=== PATIENT | male | born 1940 | race Caucasian/White ===

== ENCOUNTER 2017-03-17 09:01 | Inpatient (IN) | payer OTHER, MEDICARE ==
[~2017-03-17] VITALS: Ht 177.8 cm; Wt 117.0 kg
[2017-03-17] MEDS ORDERED: DEXTROSE 50% 50 ML SYRINGE IV PRN (10:30)
[2017-03-17] MEDS ORDERED: GLUCAGON FOR INJ 1 MG VIAL (J1610) SC PRN (10:30)
[2017-03-17] MEDS ORDERED: GLUCOSE 4 GM CHEW TABLET PO PRN (10:30)
[2017-03-17] MEDS ORDERED: ACETAMINOPHEN 650 MG SUPP PR PRN (10:30)
[2017-03-17 12:30] VITALS: BP 186/72
[2017-03-17] MEDS ORDERED: NOVO1INJ4 SC (13:27)
[2017-03-17] MEDS ORDERED: PRAV80TA2 PEG (13:27)
[2017-03-17] MEDS ORDERED: FURO40TA2 PEG (13:27)
[2017-03-17] MEDS ORDERED: ASPI81CH PEG (13:27)
[2017-03-17] MEDS ORDERED: LOVE1INJ SC (13:27)
[2017-03-17] MEDS ORDERED: ALLO100T PEG (13:27)
[2017-03-17] MEDS ORDERED: INSUH10VL SC (13:27)
[2017-03-17] MEDS ORDERED: MIRA33504 PEG (13:27)
[2017-03-17] MEDS ORDERED: PROT1TAB2 PEG (13:27)
[2017-03-17] MEDS ORDERED: VERA300C PEG (13:27)
[2017-03-17] MEDS ORDERED: INSULANT SC (13:27)
[2017-03-17] MEDS ORDERED: LOSA100T36 PEG (13:27)
[2017-03-17] MEDS ORDERED: METO100T5 PEG (13:27)
--- NOTE | 2017-03-17 13:54 | CR.PDOC ---
[facility] Consultation Consultation CONSULTATION REPORT FOR: Dr Suero REASON FOR CONSULTATION: Medical Management DATE OF VISIT: 03/17/17 ATTENDING: Dr. Christopher Hood PCP [facility] HPI: 76year oldM who was found on the floor by his on 03/06/17. He was subsequently found to have acute CVA at [facility]. The Pt is transferred to the care of Dr Suero, ARU 03/17/17. No acute medical complaints today. Pt not able to provide history, history is taken from chart and from his dtr Kyara. 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 Peg tube 03/14/17. HTN Gout DM Dyslipidemia H/O AVB/Pacemaker CAD/CT CALE. Pt refuses CPAP. OA B/L Knees. Uses W/C at home. COPD M obesity. BMI 36.2 TTE 03/07/17. [facility]. EF60%, Mild LVH, Mod DD, Mild , Mild TR, Trace MR. CTA neck [facility] 03/07 10-15% carotid stenosis PSHX: peg tube 03/14/17 Pacemaker B/L knee arthroscopy. SOCHX: Resides in: [facility] Marital Status: Employment: retired Tobacco use: non smoker FAMHX: Children: 1 dtr Alive, well 3 brothers. HTN, CAD, CVA, CT, alcoholism. 1 brother /1 sister DM complications. ROS: Pt is unable to provide. PE: GEN: 76yoM, appears stated age. Well-nourished, well developed. No acute distress. Alert, unable to verbalize answers to questions but does shake head yes and no to some questions. Sometimes with difficulty following commands. HEENT: Normocephalic, atraumatic. Pupils are equal, round, and reactive to light. Sclera are nonicteric. Conjunctiva without injection. Nose midline. Moist mucous membranes. Dentition fair. Pharynx pink and moist. Neck supple, trachea midline. No lymphadenopathy or thyromegaly appreciated. CHEST: Regular rate and rhythm, +S1, +S2. Systolic murmur noted. LUNGS: Clear to auscultation bilaterally. No wheezes, rales, or rhonchi. Breathing appears symmetric and easy. No accessory muscle use. ABD: Round, soft, non-tender, non-distended. +Bowel sounds throughout. No rebound or guarding. No costovertebral angle tenderness. peg tube intact. EXT: Pulses 2+ bilaterally dorsalis pedis and radial. No lower extremity edema appreciated. SKIN: [place], dry, warm. Capillary refill <2sec. No rashes. NEURO: Alert. Aphasic. UA pending. Admission labs pending. A&P: 76year oldM who was found on the floor by his on 03/06/17. He was subsequently found to have acute CVA at [facility]. The Pt is transferred to the care of SHABANA Farias 03/17/17. No acute medical complaints today. 1. S/P CVA. left tempo parietal, with oral apraxia and global aphasia Mgmt as per Dr Suero. PT/OT/ST as per Dr Suero. Pain control as per Dr Suero Bowel care as per Dr Suero. DVT prophylaxis. Lovenox. Peg tube feedings. Pt NPO. Pt seen by Neurology at [facility]. ASA 325mg daily. Out pt f/u. 2. HTN/HHD. Continue with Cozaar 100mg daily, Lasix 40mgpo daily, Metoprolol 100mg BID, Verapamil 300mg daily. Monitor BP trend. 3. Gout. Allopurinol. 4. IDDM. Tube feedings. NPO. SSI. 5. Dyslipidemia. Pravachol 80 mg daily. 6. H/O CHB/Pacemaker. 7. CAD/H/O CT. Continue Metoprolol/ASA. 8. CALE. Pt refuses CPAP. Monitor. 9. M Obesity. Complicates care. BMI 36.2 10. OA B/L knees. Chronic unsteady gait related to his knees per Dtr, uses Wheelchair at home. 11. VHD. Mild /Mild TR/Trace MR. 12. H/O Rhabdomyolysis during admission. CK pending. Thank you for your consultation. We will continue to follow along with you. Vital Signs/I&O Vital Signs Date Time Temp Pulse Resp B/P (MAP) Pulse Ox O2 Delivery O2 Flow Rate FiO2 03/17/17 12:30 97.4 60 18 186/72 (110) 96 Room Air Laboratory Data Labs 24H Laboratory Tests 2 03/17/17 13:06: Bedside Glucose (Misc Panel) 248H Allergies Coded Allergies: Penicillin V (Verified Allergy, Unknown, 03/17/17) Penicillins (Verified Allergy, Unknown, 03/17/17) Home Medications Scheduled (Aspirin) 81 Mg Chw, 324 MG PEG DAILY, (Reported) STARTED AT [facility] Allopurinol (Allopurinol) 100 Mg Tab, 100 MG PEG DAILY, (Reported) Enoxaparin Sodium (Lovenox) 40 Mg/0.4 Ml Inj, 40 MG SC DAILY, (Reported) STARTED AT [facility] Furosemide (Furosemide) 40 Mg Tab, 40 MG PEG DAILY, (Reported) Insulin Aspart (Novolog) 100 U/Ml Inj, 0 SC ACHS, (Reported) PER SLIDING SCALE, STARTED AT [facility] Insulin Glargine (Lantus) 1 Units/0.01 Ml Susp, 45 UNITS SC QHS, (Reported) Insulin Human Isophan/Regular (Novolin 70/30 (70-30) 100 Unit/ml) 1 Inj Inj, 45 UNITS SC DAILY, (Reported) Losartan Potassium (Losartan Potassium) 100 Mg Tab, 100 MG PEG DAILY, (Reported) Metoprolol Tartrate (Metoprolol Tartrate) 100 Mg Tab, 100 MG PEG BID, (Reported) Pantoprazole Sodium Sesquihydr (Protonix) 40 Mg Tab, 40 MG PEG DAILY, (Reported) STARTED AT [facility] Polyethylene Glycol (Miralax) 1 Pow Pow, 17 GM PEG DAILY, (Reported) STARTED AT [facility] Pravastatin Sodium (Pravastatin Sodium) 80 Mg Tab, 80 MG PEG DAILY, (Reported) Verapamil Hcl (Verapamil HCl ER) 300 Mg Cap, 300 MG PEG DAILY, (Reported) Chanda Wiggins Mar 17, 2017 13:54
[2017-03-17] MEDS ORDERED: BISACODYL 10 MG SUPP PR ONE (14:00)
[2017-03-17] MEDS: METOPROLOL TARTRATE 100 MG TAB PEG SCH ×2 (14:01→21:33)
[2017-03-17] MEDS: HumaLOG INSULIN (NovoLOG) PER UNIT SC SCH ×3 (14:01→21:00)
[2017-03-17] MEDS: ALLOPURINOL 100 MG TAB PEG SCH (14:02)
[2017-03-17] MEDS: FUROSEMIDE 40 MG TAB PEG SCH (14:02)
--- NOTE | 2017-03-17 14:10 | PMRNOTEPD ---
PMR Note 76-year-old white male status post large left temporoparietal CVA with global aphasia, oral apraxia, dysphasia and dysarthria and mild right hemiparesis which are further complicated by multiple aspects of atherosclerotic cardiovascular disease including atrial fibrillation, hypertension, peripheral vascular disease, hyperlipidemia, aortic mitral and tricuspid valve disease, pulmonary hypertension, left ventricular hypertrophy: Diabetes mellitus type 2, acute kidney injury, rhabdomyolysis, morbid obesity with obstructive sleep apnea and not using CPAP or BiPAP. 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 Due to his arrhythmia history does have a pacemaker. Patient is here for a trial of neuro rehabilitation on an acute intensive basis do 3 hours or more of therapy per day including physical, occupational and speech therapies. We will proceed with a one-week trial of neuro rehabilitation. I overall feel patient has a very good prognosis for the enable participated benefit from this and this should help make him better able to be discharged to live with his daughter in [place] who will now be caring for the patient and his . H&P dictation number is [id number]. JOSE JACOBS MD Mar 17, 2017 14:10
[2017-03-17] MEDS: VERAPAMIL 40 MG TAB PEG SCH ×2 (17:31→21:32)
[2017-03-17 20:00] VITALS: BP 155/75
[2017-03-17] MEDS: PRAVASTATIN 20 MG TAB PEG SCH (21:33)
--- NOTE | 2017-03-18 00:40 | ECGEPIP ---
Stationary ECG Study [facility] Test Date: 2017-03-17 Pat Name: JOSE BARRAZA Department: Room: [place] [address] Gender: M French Drawer: MEME : 1940 Requested By: JOSE Correia Order Number: [id number] Reading MD: Christopher Hood Measurements Intervals [place] Rate: 60 P: [place]: 0 QRS: -64 QRSD: 138 T: 126 QT: 478 QTc: 478 Interpretive Statements ELECTRONIC VENTRICULAR PACEMAKER Underlying rhythm appears to be aflutter Comparison tracing not on file Electronically Signed On 03-18-2017 0:40:06 EDT by Christopher Hood
[2017-03-18 06:00] VITALS: BP 167/79
[2017-03-18 06:30] VITALS: BP 138/82
[2017-03-18 06:54] LABS: BASO % 0.3 % (0.0-1.0); EOS # 0.2 K/mm3 (0.0-0.50); EOS % 1.7 % (0.0-3.0); LARGE UNSTAINED CELL # 0.1 K/mm3 (0.0-0.4); LARGE UNSTAINED CELL % 1.1 % (0.0-4.0); LYMPH # 0.8 K/mm3 (1.5-4.5); LYMPH % 6.6 % (24.0-44.0); MEAN CORPUSCULAR HEMOGLOBIN 30.1 pg (27.0-33.0); MEAN CORPUSCULAR HGB CONC 33.8 g/dl (32.0-36.5); MONO # 0.6 K/mm3 (0.0-0.8); NEUTROPHILS # 8.8 K/mm3 (1.8-7.7); NEUTROPHILS % 84.2 % (36.0-66.0); PLATELET COUNT, AUTOMATED 225 k/mm3 (150-450); RED CELL DISTRIBUTION WIDTH 13.5 % (11.5-14.5); WHITE BLOOD COUNT 10.5 K/mm3 (4.0-10.0)
[2017-03-18] MEDS: HumaLOG INSULIN (NovoLOG) PER UNIT SC SCH ×4 (06:57→21:00)
[2017-03-18 07:13] LABS: ALBUMIN 2.9 GM/DL (3.2-5.2); ALBUMIN/GLOBULIN RATIO 0.71 (1.00-1.93); ALKALINE PHOSPHATASE 92 U/L (45-117); ALT/SGPT 26 U/L (12-78); ANION GAP 8 MEQ/L (8-16); AST/SGOT 28 U/L (15-37); BILIRUBIN,TOTAL 0.9 MG/DL (0.2-1.0); BLOOD UREA NITROGEN 26 MG/DL (7-18); CALCIUM LEVEL 8.8 MG/DL (8.8-10.2); CARBON DIOXIDE LEVEL 30 MEQ/L (21-32); CHLORIDE LEVEL 98 MEQ/L (98-107); CREATININE FOR GFR 1.03 MG/DL (0.70-1.30); GLOMERULAR FILTRATION RATE > 60.0 (>42); GLUCOSE, FASTING 199 MG/DL (83-110); POTASSIUM SERUM 4.4 MEQ/L (3.5-5.1); SODIUM LEVEL 136 MEQ/L (136-145)
[2017-03-18] MEDS: METOPROLOL TARTRATE 100 MG TAB PEG SCH ×2 (08:24→20:05)
[2017-03-18] MEDS: FUROSEMIDE 40 MG TAB PEG SCH (08:25)
[2017-03-18] MEDS: LOSARTAN 50 MG TAB PEG SCH (08:25)
[2017-03-18] MEDS: ASPIRIN 325 MG TAB PEG SCH (08:26)
[2017-03-18] MEDS: ALLOPURINOL 100 MG TAB PEG SCH (08:26)
[2017-03-18] MEDS: VERAPAMIL 40 MG TAB PEG SCH ×3 (08:26→20:04)
[2017-03-18] MEDS: ENOXAPARIN 40 MG/0.4 ML SYRINGE (J1650) SC SCH (08:26)
[2017-03-18] MEDS ORDERED: ASPIRIN 81 MG CHEW TABLET PEG SCH (09:00)
--- NOTE | 2017-03-18 11:20 | IPNPDOC ---
Long Term Acute Care Registered Nurse Progress Note DATE OF SERVICE: 03/18/17 DATE OF ADMISSION: Mar 17, 2017 at 12:30 INPATIENT REHABILITATION ADMISSION DAY: #2 SUBJECTIVE: Patient is a 76-year-old white male with large left temporoparietal CVA with mild right hemiparesis but dense global aphasia, oral apraxia, dysarthria and dysphasia. Patient with rhabdomyolyses and skin lesion of hip. Patient with after spray cardiovascular disease including valvular disease of aortic, mitral and tricuspid valves with pulmonary hypertension, arrhythmia history including atrial fibrillation with implanted pacemaker and hyperlipidemia. Patient also with morbid obesity and secondary obstructive sleep apnea though he refuses to use CPAP. Patient status post PEG tube for feeding and medications and remains nothing by mouth. Patient with a little discomfort in the abdomen especially around the PEG site. Patient shakes his head with regards to other pains or problems as being no. ALLERGIES: See Below MEDICATIONS: Reviewed, see below. OBJECTIVE: VITAL SIGNS: Please see below. PHYSICAL EXAMINATION: GENERAL: Pleasant elderly white male who is below average height and morbidly obese sitting up in manual wheelchair in his room this morning in no acute distress. HEENT: Mild right facial droop otherwise atraumatic/normocephalic. CARDIOVASCULAR: Regular rate and rhythm with normal S1 and S2 and grade 4/6 holosystolic murmur. 2/4 bilateral radial pulses. LUNGS: All baird clear to auscultation. ABDOMEN: Obese, mildly distended with diffuse tympani and mild tenderness around PEG site. PEG site without any inflammation or drainage. NEUROLOGICAL: Patient is alert and mute. He does seem to be better than random on his shaking head yes and no. He does participate fairly well with therapy and examination. Still unable to test appropriately the sensorimotor due to poor communications. LABORATORY DATA: Reviewed. Please see below. MICROBIOLOGY: Please see below. IMAGING: No new imaging. DVT prophylaxis ordered?: Lovenox and LEOBARDO white. ASSESSMENT AND PLAN: 1. Rehabilitation of left temporoparietal CVA: Completing assessment with physical therapy, occupational therapy and speech-language pathology. Patient showing motivation and participation with therapist so far. We will discusses at further length at team rounds today. 2. Acute kidney injury: Creatinine normal at 1.03 with BUN elevated at 26. Dietary consult recommending increasing QID flushes with water from 100 to 150 mL. electrolytes are normal. 3. Hypertension: Blood pressures fairly stable and we will continue to monitor. 4. Hypo-albuminemia: Currently 2.9 and CPK now in the normal range as nutrition and seems to be improving. Dietary consultation appreciated. TIME SPENT: Chart Review, examination and documentation require greater than 35 minutes. Allergies Coded Allergies: Penicillin V (Verified Allergy, Unknown, 03/17/17) Penicillins (Verified Allergy, Unknown, 03/17/17) Vital Signs Vital Signs Date Time Temp Pulse Resp B/P (MAP) Pulse Ox O2 Delivery O2 Flow Rate FiO2 03/18/17 09:00 Room Air 03/18/17 08:24 60 138/82 03/18/17 06:00 98.5 18 95 Laboratory Data CBC/BMP Laboratory Tests 03/18/17 06:30 Red Blood Count 4.71, Mean Corpuscular Volume 89.0, Mean Corpuscular Hemoglobin 30.1, Mean Corpuscular Hemoglobin Concent 33.8, Red Cell Distribution Width 13.5 , Neutrophils (%) (Auto) 84.2 H, Lymphocytes (%) (Auto) 6.6 L, Monocytes (%) ( Auto) 6.0 H, Eosinophils (%) (Auto) 1.7, Basophils (%) (Auto) 0.3, Neutrophils # (Auto) 8.8 H, Lymphocytes # (Auto) 0.8 L, Monocytes # (Auto) 0.6, Eosinophils # (Auto) 0.2, Basophils # (Auto) 0.0, Calcium Level 8.8, Aspartate Amino Transf (AST/SGOT) 28, Alanine Aminotransferase (ALT/SGPT) 26, Total Creatine Kinase 23 L, Alkaline Phosphatase 92, Total Bilirubin 0.9, Total Protein 7.0, Albumin 2.9 L Labs 24H Laboratory Tests 2 03/17/17 13:06: Bedside Glucose (Misc Panel) 248H 03/17/17 15:36: Urine Appearance CLEAR, Urine Color YELLOW, Urine pH 7.0, Urine Specific [place] 1.012, Urine Protein NEGATIVE, Urine Glucose (UA) 3+H, Urine Ketones NEGATIVE, Urine Urobilinogen 2.0H, Urine Bilirubin NEGATIVE, Urine Leukocyte Esterase NEGATIVE, Urine Blood NEGATIVE, Urine Nitrite NEGATIVE, Urine WBC (Auto ) 1, Urine RBC (Auto) 3, Urine Hyaline Casts (Auto) 0, Urine Bacteria (Auto) 1+H , Urine Squamous Epithelial Cells 0, Urine Sperm (Auto) 03/17/17 16:34: Bedside Glucose (Misc Panel) 255H 03/17/17 21:04: Bedside Glucose (Misc Panel) 119H 03/18/17 06:08: Bedside Glucose (Misc Panel) 182H 03/18/17 06:30: White Blood Count 10.5H, Red Blood Count 4.71, Hemoglobin 14.2, Hematocrit 42.0 , Mean Corpuscular Volume 89.0, Mean Corpuscular Hemoglobin 30.1, Mean Corpuscular Hemoglobin Concent 33.8, Red Cell Distribution Width 13.5, Platelet Count 225, Neutrophils (%) (Auto) 84.2H, Lymphocytes (%) (Auto) 6.6L, Monocytes (%) (Auto) 6.0H, Eosinophils (%) (Auto) 1.7, Basophils (%) (Auto) 0.3, Neutrophils # (Auto) 8.8H, Lymphocytes # (Auto) 0.8L, Monocytes # (Auto) 0.6, Eosinophils # (Auto) 0.2, Basophils # (Auto) 0.0, Large Unclassified Cells % 1.1 , Large Unclassified Cells # 0.1, Anion Gap 8, Glomerular Filtration Rate > 60.0 , Blood Urea Nitrogen 26H, Creatinine 1.03, Sodium Level 136, Potassium Level 4.4, Chloride Level 98, Carbon Dioxide Level 30, Calcium Level 8.8, Aspartate Amino Transf (AST/SGOT) 28, Alanine Aminotransferase (ALT/SGPT) 26, Total Creatine Kinase 23L, Alkaline Phosphatase 92, Total Bilirubin 0.9, Total Protein 7.0, Albumin 2.9L, Albumin/Globulin Ratio 0.71L Current Medications Current Medications Current Medications Acetaminophen (Tylenol Suppository) 650 mg Q6HP PRN AK PAIN OR FEVER; Start at 10:30; Stop 04/16/17 at 10:29 Allopurinol (Zyloprim) 100 mg DAILY PEG Last administered on 03/18/17t 08:26; Start 03/17/17 at 09:00; Stop 04/16/17 at 08:59 Aspirin (Aspirin Chewable) 81 mg DAILY PEG ; Start 03/18/17 at 09:00; Stop 03/18 at 09:00; Status DC Aspirin (Aspirin) 325 mg DAILY PEG Last administered on 03/18/17 08:26; Start 03/18/17 at 09:00; Stop 04/17/17 at 08:59 Dextrose (Dextrose 50%) 25 ml ASDIRECTED PRN IV SEE LABEL COMMENTS; Start 03/17 at 10:30; Stop 04/16/17 at 10:29 Enoxaparin Sodium (Lovenox) 40 mg DAILY SC Last administered on 03/18/17 08:26 ; Start 03/18/17 at 09:00; Stop 03/23/17 at 08:59 Furosemide (Lasix) 40 mg DAILY PEG Last administered on 03/18/17 08:25; Start 03/17/17 at 09:00; Stop 04/16/17 at 08:59 Glucagon (Glucagon) 1 mg ASDIRECTED PRN SC SEE LABEL COMMENTS; Start 03/17/17 at 10:30; Stop 04/16/17 at 10:29 Glucose (Glucose) 16 GM ASDIRECTED PRN PO SEE LABEL COMMENTS; Start 03/17/17 at 10:30; Stop 04/16/17 at 10:29 Home Med (Med Rec Complete!) ASDIRECTED XX ; Start 03/17/17 at 13:30; Stop at 13:34; Status DC Insulin Human Lispro (HumaLOG INSULIN) See Protocol Table AC SC Last administered on 03/18/17 06:57; Start 03/17/17 at 12:00; Stop 04/16/17 at 11:59 Insulin Human Lispro (HumaLOG INSULIN) See Protocol Table QHS SC ; Start at 21:00; Stop 04/16/17 at 20:59 Losartan Potassium (Cozaar) 100 mg DAILY PEG Last administered on 03/18/17 08: 25; Start 03/18/17 at 09:00; Stop 04/17/17 at 08:59 Metoprolol Tartrate (Lopressor) 100 mg BID PEG Last administered on 03/18/17 08:24; Start 03/17/17 at 09:00; Stop 04/16/17 at 08:59 Pravastatin Sodium (Pravachol) 80 mg QHS PEG Last administered on 03/17/17 21: 33; Start 03/17/17 at 21:00; Stop 04/16/17 at 20:59 Verapamil HCl (Calan) 120 mg TID PEG Last administered on 03/18/17t 08:26; Start 03/17/17 at 16:00; Stop 04/16/17 at 15:59 JOSE JACOBS MD Mar 18, 2017 11:20
--- NOTE | 2017-03-18 12:02 | IPNPDOC ---
Date Seen The patient was seen on 03/18/17. Progress Note HPI: 76year oldM who was found on the floor by his on 03/06/17. He was subsequently found to have acute CVA at [facility]. The Pt is transferred to the care of SKYLER FariasU 03/17/17. Pt has been reporting abdominal pain today. Loose BM as per nursing, but did receive Dulcolax last evening. Pt is a poor historian, shakes head to some questions but possibly unreliably. History is taken from chart and nursing today. 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 Peg tube 03/14/17. HTN Gout DM Dyslipidemia H/O AVB/Pacemaker CAD/AK CALE. Pt refuses CPAP. OA B/L Knees. Uses W/C at home. COPD M obesity. BMI 36.2 TTE 03/07/17. [facility]. EF60%, Mild LVH, Mod DD, Mild , Mild TR, Trace MR. CTA neck [facility] 03/07 10-15% carotid stenosis CTA Brain. [facility]. unremarkable. EEG. [facility]. No seizure activity noted. PSHX: peg tube 03/14/17 Pacemaker B/L knee arthroscopy. PE: GEN: 76yoM, appears stated age. Well-nourished, well developed. No acute distress. Alert, unable to verbalize answers to questions but does shake head yes and no to some questions. Sometimes with difficulty following commands. HEENT: Normocephalic, atraumatic. Pupils are equal, round, and reactive to light. Sclera are nonicteric. Conjunctiva without injection. Nose midline. Moist mucous membranes. Dentition fair. Pharynx pink and moist. Neck supple, trachea midline. No lymphadenopathy or thyromegaly appreciated. CHEST: Regular rate and rhythm, +S1, +S2. Systolic murmur noted. LUNGS: Clear to auscultation bilaterally. No wheezes, rales, or rhonchi. Breathing appears symmetric and easy. No accessory muscle use. ABD: Round, soft, Mild TTP suprapubic area, non-distended. +Bowel sounds throughout. No rebound or guarding. No costovertebral angle tenderness. peg tube intact, there is no erythema/drainage noted. EXT: Pulses 2+ bilaterally dorsalis pedis and radial. No lower extremity edema appreciated. SKIN: [place], dry, warm. Capillary refill <2sec. No rashes. NEURO: Alert. Aphasic. EKG 03/17/17 ELECTRONIC VENTRICULAR PACEMAKER Underlying rhythm appears to be aflutter Comparison tracing not on file A&P: 76year oldM who was found on the floor by his on 03/06/17. He was subsequently found to have acute CVA at [facility]. The Pt is transferred to the care of Dr Suero, SKYLERU 03/17/17. No acute medical complaints today. 1. S/P CVA. left tempo parietal, with oral apraxia and global aphasia Mgmt as per Dr Suero. PT/OT/ST as per Dr Suero. Pain control as per Dr Suero Bowel care as per Dr Suero. DVT prophylaxis. Lovenox. Peg tube feedings. Pt NPO. Nutrition Clt. Pt seen by Neurology at [facility]. ASA 325mg daily. Out pt f/u. 2. HTN/HHD. Continue with Cozaar 100mg daily, Lasix 40mgpo daily, Metoprolol 100mg BID, Verapamil 300mg daily. BP trend improved today. 3. Gout. Allopurinol. 4. IDDM. Tube feedings. NPO. SSI. 5. Dyslipidemia. Pravachol 80 mg daily. 6. H/O CHB/Pacemaker. EKG indicates underlying Afib/Flutter. Similar on previous tracing at [facility] as well. Will request Cardiology opinion regarding anticoagulation. Spoke with Dr Dawson, he will see the pt. 7. CAD/H/O [place]. Continue Metoprolol/ASA. 8. CALE. Pt refuses CPAP. Monitor. 9. M Obesity. Complicates care. BMI 36.2 10. OA B/L knees. Chronic unsteady gait related to his knees per Dtr, uses Wheelchair at home. 11. VHD. Mild /Mild TR/Trace MR. 12. H/O Rhabdomyolysis during admission. CK WNL. 13. Abdominal pain. WBC 10.5 this AM. Afebrile. Request UA/UC. GI panel. Bladder scan. Request CT A/P to further asses. Check LA. Daily CBC/CMP. Discussed with Dr Bernal. VS, I&O, 24H, Fishbone Vital Signs/I&O Vital Signs Date Time Temp Pulse Resp B/P (MAP) Pulse Ox O2 Delivery O2 Flow Rate FiO2 03/18/17 09:00 Room Air 03/18/17 08:24 60 138/82 03/18/17 06:00 98.5 18 95 I&O- Last 24 Hours up to 6 AM 03/18/17 05:59 Intake Total 1500 ml Output Total 0 ml Balance 1500 ml Laboratory Data 24H LABS Laboratory Tests 2 03/17/17 13:06: Bedside Glucose (Misc Panel) 248H 03/17/17 15:36: Urine Appearance CLEAR, Urine Color YELLOW, Urine pH 7.0, Urine Specific [place] 1.012, Urine Protein NEGATIVE, Urine Glucose (UA) 3+H, Urine Ketones NEGATIVE, Urine Urobilinogen 2.0H, Urine Bilirubin NEGATIVE, Urine Leukocyte Esterase NEGATIVE, Urine Blood NEGATIVE, Urine Nitrite NEGATIVE, Urine WBC (Auto ) 1, Urine RBC (Auto) 3, Urine Hyaline Casts (Auto) 0, Urine Bacteria (Auto) 1+H , Urine Squamous Epithelial Cells 0, Urine Sperm (Auto) 03/17/17 16:34: Bedside Glucose (Misc Panel) 255H 03/17/17 21:04: Bedside Glucose (Misc Panel) 119H 03/18/17 06:08: Bedside Glucose (Misc Panel) 182H 03/18/17 06:30: White Blood Count 10.5H, Red Blood Count 4.71, Hemoglobin 14.2, Hematocrit 42.0 , Mean Corpuscular Volume 89.0, Mean Corpuscular Hemoglobin 30.1, Mean Corpuscular Hemoglobin Concent 33.8, Red Cell Distribution Width 13.5, Platelet Count 225, Neutrophils (%) (Auto) 84.2H, Lymphocytes (%) (Auto) 6.6L, Monocytes (%) (Auto) 6.0H, Eosinophils (%) (Auto) 1.7, Basophils (%) (Auto) 0.3, Neutrophils # (Auto) 8.8H, Lymphocytes # (Auto) 0.8L, Monocytes # (Auto) 0.6, Eosinophils # (Auto) 0.2, Basophils # (Auto) 0.0, Large Unclassified Cells % 1.1 , Large Unclassified Cells # 0.1, Anion Gap 8, Glomerular Filtration Rate > 60.0 , Blood Urea Nitrogen 26H, Creatinine 1.03, Sodium Level 136, Potassium Level 4.4, Chloride Level 98, Carbon Dioxide Level 30, Calcium Level 8.8, Aspartate Amino Transf (AST/SGOT) 28, Alanine Aminotransferase (ALT/SGPT) 26, Total Creatine Kinase 23L, Alkaline Phosphatase 92, Total Bilirubin 0.9, Total Protein 7.0, Albumin 2.9L, Albumin/Globulin Ratio 0.71L 03/18/17 11:36: Bedside Glucose (Misc Panel) 210H CBC/BMP Laboratory Tests 03/18/17 06:30 Red Blood Count 4.71, Mean Corpuscular Volume 89.0, Mean Corpuscular Hemoglobin 30.1, Mean Corpuscular Hemoglobin Concent 33.8, Red Cell Distribution Width 13.5 , Neutrophils (%) (Auto) 84.2 H, Lymphocytes (%) (Auto) 6.6 L, Monocytes (%) ( Auto) 6.0 H, Eosinophils (%) (Auto) 1.7, Basophils (%) (Auto) 0.3, Neutrophils # (Auto) 8.8 H, Lymphocytes # (Auto) 0.8 L, Monocytes # (Auto) 0.6, Eosinophils # (Auto) 0.2, Basophils # (Auto) 0.0, Calcium Level 8.8, Aspartate Amino Transf (AST/SGOT) 28, Alanine Aminotransferase (ALT/SGPT) 26, Total Creatine Kinase 23 L, Alkaline Phosphatase 92, Total Bilirubin 0.9, Total Protein 7.0, Albumin 2.9 L Chanda Wiggins Mar 18, 2017 12:02
[2017-03-18] MEDS ORDERED: ISOVUE-370 76% 100ML VIAL (Q9967) As Ordered ONE (12:49)
--- NOTE | 2017-03-18 13:34 | PMRHPE ---
DATE OF ADMISSION: 03/17/2017 CHIEF COMPLAINT: Rehabilitation of large left temporal parietal ischemic cerebrovascular accident (CVA) with global aphasia, oral apraxia, dysarthria, dysphasia, mild right hemiparesis. HISTORY OF PRESENT ILLNESS: Patient is a 76-year-old white male who has been caring for his elderly who has dementia and on approximately in the evening, patient sustained an ischemic CVA and was unable to get up. He was down on the kitchen floor. His , due to OBS did not reactive to his descent and patient spent the night on the floor into Tuesday. His at that time became aware of him being down and summoned help. He was taken to [facility] and evaluated and found to have rhabdomyolysis due to being down on the kitchen floor, to be in acute respiratory distress with pulse oximetry of 88 and respiratory rate of 36 and atelectasis in left lower lobe, and cardiac stress with some elevation of troponin into indeterminate range, as well as being found to have an old left parietal CVA and not showing the temporal portion. Patient was further assessed and repeat scan showed the temporal parietal extent of the event. He was found to have oral apraxia and was made n.p.o. and had nasogastric tube and IV access for medications. Subsequent testing did show the elevation of CPK and especially the MB band. Patient, however, with normal CBC and electrolytes, however, acute kidney injury was also noted. Patient has been on medical service with initial intensive care unit (ICU) and then acute floor and started on trial with physical, occupational, speech therapy. He has had placement of a percutaneous endoscopic gastrostomy tube on 03/15 and is now receiving his medications through there. The patient has felt at this time able to participate and benefit from a trial of neuro rehabilitation. His daughter is here from [place] and is acting as his health proxy as the next of kin as his is unable to appreciate and make the decisions for the patient and his communications do not allow that. She does note that patient is FULL CODE and may be intubated and may have ventilation but only for up to 48 hours. PAST MEDICAL HISTORY: Atherosclerotic cardiovascular disease with prior CVA. Prior myocardial infarction. Peripheral vascular disease. Hypertension. Arrhythmias including atrial fibrillation and patient does have a pacemaker. Hyperlipidemia. Aortic and mitral valve and tricuspid valve problems, and on echocardiogram done during his recent hospitalization was found to have pulmonary hypertension as well. DIAGNOSIS: 1. Acute Kidney Injury. 2. Gout. 3. Degenerative joint disease (DJD). 4. Morbid obesity. 5. Obstructive sleep apnea secondary to morbid obesity and patient refused to do CPAP/BiPAP treatment. 6. Hypoalbuminemia secondary to the CVA and nutritional compromise caused by it. PAST SURGICAL HISTORY: Status post percutaneous endoscopic gastrostomy tube placement. FAMILY HISTORY: Includes gastrointestinal (GI) malignancy and atherosclerotic cardiovascular disease. SOCIAL HISTORY: Not obtainable from the patient or his other than he is retired. ALLERGIES: PENICILLIN including PEN-V. No other allergies known. MEDICATIONS FROM [facility]: - insulin sliding scale - Lovenox 40 mg subcutaneous daily - 81 mg aspirin per percutaneous endoscopic gastrostomy tube - propylene glycol 17 grams daily by percutaneous endoscopic gastrostomy tube - sustained release verapamil 300 mg daily - Losartan 50 mg tablets, two tablets via percutaneous endoscopic gastrostomy tube - Pravachol 20 mg tablets, 80 mg daily at bedtime - allopurinol 100 mg daily for gout - Lasix 40 mg daily - metoprolol tartrate 50 mg twice daily I am going to stop the MiraLax so it does not plug the percutaneous endoscopic gastrostomy tube and patient has been having formed bowel movements already along with some incontinence of bowel and bladder reported. REVIEW OF SYSTEMS: Not obtainable from the patient due to the aphasia. PHYSICAL EXAMINATION: General: Patient is morbidly obese, elderly white male who looks approximately stated age of 76, he is slightly below average height. Vital signs are not currently available. HEENT: Patient with right facial droop and unable to extend tongue out, however tongue is basically midline in the mouth were it lays and shows some mild thrush fairly early in development. No other oral lesions. Nasal passages are patent. Extraocular motions are intact. Pupils are equal, round and reactive to light and accommodation. Hearing appears to be fair to good. Neck is supple, nontender. Lungs are clear in all baird. Coronary: Shows regular rate and rhythm with normal S1, S2 and a holosystolic grade 4/6 murmur with no rubs or gallops. Patient with 2/4 bilateral radial pulses. Abdomen is obese with gaseous distention and tympany in almost all regions. No palpable masses and only just a little bit of localized tenderness around the percutaneous endoscopic gastrostomy tube which is showing no inflammation or significant drainage in the left upper quadrant. Extremities with functional range of motion and greater than 3/5 motor. However , patient who has difficulty understanding commands is not able to apply full strength and resistance so is not possible to gauge beyond the antigravital nature of all his muscle group but does appear to be slightly weaker on the right than the left. Neurologically, patient is alert, he does seem to be participating and trying to follow directions but has difficulty and does have clear anomia and understanding speech though he tends to guess fairly well as to what you are asking him to do and tends to do better with gestures than words. However, his true level of orientation is unclear though he does appear to appreciate who he is and what is going on in general. Patient not producing any speech at this time, has been reported to have some automatic responses by his daughter but only short things like her name and no. Patient does appear to consistently understand about his obstructive sleep apnea and able to consistently report by shaking his head no to being on CPAP. Patient was not able to tell me about light touch vibration, however, deep tendon reflexes show 2 minus 4 knee jerks, 2 plus 4 biceps, brachial radialis and 2 out of 4 triceps with downgoing toes in plantar stimulation, negative mentalis signs bilaterally. LABORATORY DATA: Patient with normal electrolytes on yesterday lab. BUN elevated at 34, creatinine now down to 1.23 in normal range with normal glomerular filtration rate. Fasting blood sugar was 323 and recent blood sugars have tended to run between 195 and 323. Albumin is reduced at 2.9 with secondary mild reduction in calcium at 8.1. Hemoglobin and hematocrit are in the normal range. RDW is mildly elevated at 14.2 with normal platelets of 210,000 and normal MCV of 89.1. ASSESSMENT/PLAN: DIAGNOSES: 1. Rehabilitation of left temporal parietal cerebrovascular accident (CVA) with old left parietal CVA and oral apraxia, global aphasia, mild right hemiparesis, dysarthria, dysphasia. Will go ahead and start patient in evaluation and trial of acute intensive neuro rehabilitation including physical, occupational and speech therapy. Speech therapy will assess communication, oral control as well as swallowing and overall cognition. Physical therapy will work on mobility, strength, balance and endurance with occupational therapy working on appropriate transfer and activities of daily living skills and try to make patient more functionally independent to facilitate his anticipated discharge to home with his daughter who will be looking after both him and his , her mother. The initial trial will be for 7 days and will adjust target angle depending on how patient functions. It does appear patient will be able to tolerate the 3 hours of therapy per day and has made some gains in ambulation, transfers and mobility. 2. Atherosclerotic cardiovascular disease. Atrial fibrillation and hypertension appear to have been stabilized. We will continue to watch these. I will go ahead and get a baseline EKG. Medicine service has been consulted and informed about the patient's admission and will be seeing him for that. Patient, of note , does have some signs of vascular disease in the appearance of both lower extremities with some edema and stasis skin changes noted. At this time, it appears patient is out of atrial fibrillation but we will continue to observe and will continue with Lovenox to prevent deep venous thrombosis (DVT) as well as clots from the atrial fibrillation. Patient has been on 40 mg per day, he may require a higher dose due to his weight but this will also depend on his overall ability to get up and move around which is being determined. 3. Diabetes mellitus. This has not been under the best of control and further adjustment in medication including his renal function improves, use of insulin resistance, treating medications. For now, will go ahead with sliding scale and patient is on tube feeds for consistent carbohydrate type diet with Glucerna and will go to more of a traditional consistent carbohydrate diet at the point he is able to advance into regular types of food from his dysphasia. 4. Gout. Will continue the allopurinol. 5. Hypertension. Patient to continue Lasix, Lopressor and verapamil and Losartan for this along with the pravastatin for cholesterol management. 6. Obstructive sleep apnea. At this time, patient refusing treatment and I believe he is aware and understands it, and probably will not comply and is quite capable of taking a mask we would put on him off. Post admission physician evaluation: We did not receive the last few days of notes before the patient arrived, however, he is performing and appeared medially to be better off than was initially seen. In doing the pre-admission screen, I think he has a fairly good opportunity to participate and benefit from acute intensive neuro rehabilitation with physical, occupational and speech therapy and I believe he is quite capable of doing the 3 hours per day and we plan to discharge to his daughter's home. Length of stay is yet to be determined but will start with a 1 week trial of neuro rehabilitation and with patient having a fair to good prognosis. TIME SPENT ON CHART REVIEW, HISTORY AND PHYSICAL AND DOCUMENTATION: Greater than 70 minutes. MTDD
--- NOTE | 2017-03-18 14:29 | REP ---
REASON: Abdominal pain. PEG tube placement. PRIORS: None. CONTRAST UTILIZED FOR THE EXAM: 100 mL Isovue-370. There is a small right pleural effusion seen in the lung bases along with respiratory motion artifact and suspected fibrotic changes. There is four-chamber cardiac enlargement. There is cholelithiasis. There are no enhancing hepatic lesions. The spleen, pancreas, and right adrenal gland are unremarkable. In the left adrenal gland, there is a round 1.8 cm sized nodule which shows contrast enhancement. No noncontrast enhanced images were obtained. There is a tiny simple cortical cyst in the right kidney. There is a tiny simple cortical cyst in the inferior pole of the left kidney. The abdominal aorta and para-aortic regions are within normal limits. Note is made of a PEG tube in place. There is no free fluid or free air seen in the abdomen or pelvis. The intra-abdominal and intrapelvic bowel loops and their mesenteries are within normal limits. There is colonic redundancy, and there is colonic diverticulosis. Bone window technique throughout the exam shows bilateral hip and sacroiliac joint degenerative changes with spinal degenerative changes and bony demineralization. IMPRESSION: 1. There is cholelithiasis. 2. Simple renal cysts. 3. Enhancing left adrenal gland nodule. Noncontrast enhanced evaluation of this is recommended to ensure the entity represents a benign lesion. 4. Colonic diverticulosis and colonic redundancy. 5. PEG tube in place. 6. Other findings as described above. Signed by Ayan Miller DO 03/18/2017 03:20 P
[2017-03-18 14:45] VITALS: BP 134/87
[2017-03-18 20:00] VITALS: BP 133/65
[2017-03-18] MEDS: PRAVASTATIN 20 MG TAB PEG SCH (20:03)
[2017-03-19 06:00] VITALS: BP 140/72
[2017-03-19 06:27] LABS: BASO % 0.4 % (0.0-1.0); EOS # 0.2 K/mm3 (0.0-0.50); EOS % 1.8 % (0.0-3.0); LARGE UNSTAINED CELL # 0.2 K/mm3 (0.0-0.4); LARGE UNSTAINED CELL % 1.7 % (0.0-4.0); LYMPH # 0.8 K/mm3 (1.5-4.5); LYMPH % 7.5 % (24.0-44.0); MEAN CORPUSCULAR HEMOGLOBIN 29.6 pg (27.0-33.0); MEAN CORPUSCULAR HGB CONC 33.4 g/dl (32.0-36.5); MEAN CORPUSCULAR VOLUME 88.5 fl (80.0-96.0); MONO # 0.6 K/mm3 (0.0-0.8); MONO % 6.9 % (0.0-5.0); NEUTROPHILS # 7.3 K/mm3 (1.8-7.7); NEUTROPHILS % 81.9 % (36.0-66.0); PLATELET COUNT, AUTOMATED 235 k/mm3 (150-450); RED CELL DISTRIBUTION WIDTH 13.5 % (11.5-14.5); WHITE BLOOD COUNT 8.9 K/mm3 (4.0-10.0)
[2017-03-19 06:51] LABS: ALBUMIN/GLOBULIN RATIO 0.88 (1.00-1.93); ALKALINE PHOSPHATASE 94 U/L (45-117); ALT/SGPT 27 U/L (12-78); ANION GAP 10 MEQ/L (8-16); AST/SGOT 29 U/L (15-37); BILIRUBIN,TOTAL 0.9 MG/DL (0.2-1.0); BLOOD UREA NITROGEN 38 MG/DL (7-18); CALCIUM LEVEL 8.8 MG/DL (8.8-10.2); CARBON DIOXIDE LEVEL 31 MEQ/L (21-32); CHLORIDE LEVEL 94 MEQ/L (98-107); CREATININE FOR GFR 1.11 MG/DL (0.70-1.30); GLOMERULAR FILTRATION RATE > 60.0 (>42); GLUCOSE, FASTING 199 MG/DL (83-110); POTASSIUM SERUM 4.4 MEQ/L (3.5-5.1); SODIUM LEVEL 135 MEQ/L (136-145); TOTAL PROTEIN 6.4 GM/DL (6.4-8.2)
[2017-03-19] MEDS: HumaLOG INSULIN (NovoLOG) PER UNIT SC SCH ×4 (08:24→21:00)
[2017-03-19] MEDS: ENOXAPARIN 40 MG/0.4 ML SYRINGE (J1650) SC SCH (08:24)
[2017-03-19] MEDS: ALLOPURINOL 100 MG TAB PEG SCH (08:25)
[2017-03-19] MEDS: LOSARTAN 50 MG TAB PEG SCH (08:26)
[2017-03-19] MEDS: ASPIRIN 325 MG TAB PEG SCH (08:26)
[2017-03-19] MEDS: VERAPAMIL 40 MG TAB PEG SCH ×3 (08:26→20:59)
[2017-03-19] MEDS: METOPROLOL TARTRATE 100 MG TAB PEG SCH ×2 (08:27→20:59)
[2017-03-19] MEDS: FUROSEMIDE 40 MG TAB PEG SCH (08:27)
[2017-03-19 14:57] VITALS: BP 148/69
[2017-03-19 20:00] VITALS: BP 135/64
[2017-03-19] MEDS: PRAVASTATIN 20 MG TAB PEG SCH (21:00)
[2017-03-20 06:00] VITALS: BP 136/62
[2017-03-20 06:34] LABS: BASO % 0.5 % (0.0-1.0); EOS # 0.2 K/mm3 (0.0-0.50); EOS % 2.5 % (0.0-3.0); LARGE UNSTAINED CELL # 0.2 K/mm3 (0.0-0.4); LYMPH # 0.9 K/mm3 (1.5-4.5); LYMPH % 8.5 % (24.0-44.0); MEAN CORPUSCULAR HEMOGLOBIN 29.7 pg (27.0-33.0); MEAN CORPUSCULAR HGB CONC 33.4 g/dl (32.0-36.5); MONO # 0.6 K/mm3 (0.0-0.8); MONO % 6.9 % (0.0-5.0); NEUTROPHILS # 6.9 K/mm3 (1.8-7.7); NEUTROPHILS % 79.6 % (36.0-66.0); PLATELET COUNT, AUTOMATED 282 k/mm3 (150-450); RED CELL DISTRIBUTION WIDTH 13.5 % (11.5-14.5); WHITE BLOOD COUNT 8.6 K/mm3 (4.0-10.0)
[2017-03-20 06:50] LABS: ALBUMIN 3.3 GM/DL (3.2-5.2); ALBUMIN/GLOBULIN RATIO 0.94 (1.00-1.93); ALKALINE PHOSPHATASE 99 U/L (45-117); ALT/SGPT 30 U/L (12-78); ANION GAP 9 MEQ/L (8-16); AST/SGOT 30 U/L (15-37); BILIRUBIN,TOTAL 0.9 MG/DL (0.2-1.0); BLOOD UREA NITROGEN 43 MG/DL (7-18); CALCIUM LEVEL 9.1 MG/DL (8.8-10.2); CARBON DIOXIDE LEVEL 31 MEQ/L (21-32); CHLORIDE LEVEL 95 MEQ/L (98-107); CREATININE FOR GFR 1.23 MG/DL (0.70-1.30); GLOMERULAR FILTRATION RATE > 60.0 (>42); GLUCOSE, FASTING 203 MG/DL (83-110); POTASSIUM SERUM 4.3 MEQ/L (3.5-5.1); SODIUM LEVEL 135 MEQ/L (136-145); TOTAL PROTEIN 6.8 GM/DL (6.4-8.2)
[2017-03-20] MEDS: HumaLOG INSULIN (NovoLOG) PER UNIT SC SCH ×4 (07:48→20:40)
[2017-03-20] MEDS: ASPIRIN 325 MG TAB PEG SCH (07:49)
[2017-03-20] MEDS: LOSARTAN 50 MG TAB PEG SCH (07:49)
[2017-03-20] MEDS: VERAPAMIL 40 MG TAB PEG SCH ×3 (07:49→20:40)
[2017-03-20] MEDS: ENOXAPARIN 40 MG/0.4 ML SYRINGE (J1650) SC SCH (07:50)
[2017-03-20] MEDS: ALLOPURINOL 100 MG TAB PEG SCH (07:50)
[2017-03-20] MEDS: FUROSEMIDE 40 MG TAB PEG SCH (07:50)
[2017-03-20] MEDS: METOPROLOL TARTRATE 100 MG TAB PEG SCH ×2 (07:50→20:40)
[2017-03-20 14:00] VITALS: BP 120/59
[2017-03-20 20:10] VITALS: BP 135/64
[2017-03-20] MEDS: PRAVASTATIN 20 MG TAB PEG SCH (20:39)
[2017-03-21 05:46] VITALS: BP 145/69
[2017-03-21 06:14] LABS: BASO % 0.6 % (0.0-1.0); EOS # 0.2 K/mm3 (0.0-0.50); LARGE UNSTAINED CELL # 0.1 K/mm3 (0.0-0.4); LARGE UNSTAINED CELL % 1.9 % (0.0-4.0); LYMPH # 0.8 K/mm3 (1.5-4.5); LYMPH % 8.5 % (24.0-44.0); MEAN CORPUSCULAR HEMOGLOBIN 29.5 pg (27.0-33.0); MEAN CORPUSCULAR HGB CONC 33.2 g/dl (32.0-36.5); MONO # 0.6 K/mm3 (0.0-0.8); MONO % 7.5 % (0.0-5.0); NEUTROPHILS # 6.1 K/mm3 (1.8-7.7); NEUTROPHILS % 79.5 % (36.0-66.0); PLATELET COUNT, AUTOMATED 267 k/mm3 (150-450); RED CELL DISTRIBUTION WIDTH 13.6 % (11.5-14.5); WHITE BLOOD COUNT 7.6 K/mm3 (4.0-10.0)
[2017-03-21 06:27] LABS: ALBUMIN/GLOBULIN RATIO 0.86 (1.00-1.93); ALKALINE PHOSPHATASE 94 U/L (45-117); ALT/SGPT 30 U/L (12-78); ANION GAP 9 MEQ/L (8-16); AST/SGOT 29 U/L (15-37); BILIRUBIN,TOTAL 0.9 MG/DL (0.2-1.0); BLOOD UREA NITROGEN 44 MG/DL (7-18); CALCIUM LEVEL 9.3 MG/DL (8.8-10.2); CARBON DIOXIDE LEVEL 32 MEQ/L (21-32); CHLORIDE LEVEL 95 MEQ/L (98-107); CREATININE FOR GFR 1.13 MG/DL (0.70-1.30); GLOMERULAR FILTRATION RATE > 60.0 (>42); GLUCOSE, FASTING 189 MG/DL (83-110); POTASSIUM SERUM 4.5 MEQ/L (3.5-5.1); SODIUM LEVEL 136 MEQ/L (136-145); TOTAL PROTEIN 6.5 GM/DL (6.4-8.2)
[2017-03-21] MEDS: HumaLOG INSULIN (NovoLOG) PER UNIT SC SCH ×4 (08:10→21:00)
[2017-03-21] MEDS: FUROSEMIDE 40 MG TAB PEG SCH (08:11)
[2017-03-21] MEDS: ALLOPURINOL 100 MG TAB PEG SCH (08:11)
[2017-03-21] MEDS: VERAPAMIL 40 MG TAB PEG SCH ×3 (08:11→21:25)
[2017-03-21] MEDS: METOPROLOL TARTRATE 100 MG TAB PEG SCH ×2 (08:11→21:24)
[2017-03-21] MEDS: ASPIRIN 325 MG TAB PEG SCH (08:11)
[2017-03-21] MEDS: ENOXAPARIN 40 MG/0.4 ML SYRINGE (J1650) SC SCH (08:12)
[2017-03-21] MEDS: LOSARTAN 50 MG TAB PEG SCH (08:12)
--- NOTE | 2017-03-21 09:09 | IPNPDOC ---
Signal [employer] Progress Note DATE OF SERVICE: 03/21/17 DATE OF ADMISSION: Mar 17, 2017 at 12:30 INPATIENT REHABILITATION ADMISSION DAY: #5 SUBJECTIVE: Patient is a 76-year-old white male with large left temporoparietal CVA with mild right hemiparesis but dense global aphasia, oral apraxia, dysarthria and dysphasia. Patient with rhabdomyolyses and skin lesion of hip. Patient with after spray cardiovascular disease including valvular disease of aortic, mitral and tricuspid valves with pulmonary hypertension, arrhythmia history including atrial fibrillation with implanted pacemaker and hyperlipidemia. Patient also with morbid obesity and secondary obstructive sleep apnea though he refuses to use CPAP. Patient status post PEG tube for feeding and medications and remains nothing by mouth. Patient with a little discomfort in the abdomen especially around the PEG site. Patient shakes his head with regards to other pains or problems as being no. ALLERGIES: See Below MEDICATIONS: Reviewed, see below. OBJECTIVE: VITAL SIGNS: Please see below. PHYSICAL EXAMINATION: GENERAL: Pleasant elderly white male who is below average height and morbidly obese sitting up in manual wheelchair in his room this morning in no acute distress. HEENT: Mild right facial droop is improving, otherwise atraumatic/normocephalic. CARDIOVASCULAR: Regular rate and rhythm with normal S1 and S2 and grade 4/6 holosystolic murmur. 2/4 bilateral radial pulses. LUNGS: All baird clear to auscultation. ABDOMEN: Obese, less distended with mild tenderness around PEG site. PEG site without any inflammation or drainage. NEUROLOGICAL: Patient is alert and some automatic and spontaneous speech this morning. He is still unable to extend tongue and speech is dysarthric. He does seem to be better than random on his shaking head yes and no. He does participate fairly well with therapy and examination. Still unable to test appropriately the sensorimotor due to poor communications. SKIN: Hip sore is erythematous, irregular in shape and may reflect greater trochanter pressure when patient was down in the kitchen and not moving. LABORATORY DATA: Reviewed. Please see below. MICROBIOLOGY: Please see below. IMAGING: No new imaging. DVT prophylaxis ordered?: Williex and LEOBARDO white. ASSESSMENT AND PLAN: 1. Rehabilitation of left temporoparietal CVA: Completing assessment with physical therapy, occupational therapy and speech-language pathology. Patient showing motivation and participation with therapist so far. More automatic and spontaneous speech today, but dysarthric and poorly intelligible. 2. Acute kidney injury: Creatinine normal at 1.03 with BUN elevated at 44. I will discuss increase in flushes to 200 or 250 cc QID with possible change in Furosemide from 40mg daily to lesser amount. 3. Hypertension: Blood pressures fairly stable and we will continue to monitor. 4. Hypo-albuminemia: Currently 3.0 which is better. Dietary consultation appreciated. 5. Left Adrenal Mass: I will discuss the w/u with Medicine consumer services consultant today. TIME SPENT: Chart Review, examination and documentation require greater than 25 minutes. Allergies Coded Allergies: Penicillin V (Verified Allergy, Unknown, 03/17/17) Penicillins (Verified Allergy, Unknown, 03/17/17) Vital Signs Vital Signs Date Time Temp Pulse Resp B/P (MAP) Pulse Ox O2 Delivery O2 Flow Rate FiO2 03/21/17 08:11 60 145/69 03/21/17 05:46 97.8 20 98 Room Air Laboratory Data CBC/BMP Laboratory Tests 03/21/17 05:44 Red Blood Count 4.64, Mean Corpuscular Volume 89.0, Mean Corpuscular Hemoglobin 29.5, Mean Corpuscular Hemoglobin Concent 33.2, Red Cell Distribution Width 13.6 , Neutrophils (%) (Auto) 79.5 H, Lymphocytes (%) (Auto) 8.5 L, Monocytes (%) ( Auto) 7.5 H, Eosinophils (%) (Auto) 2.0, Basophils (%) (Auto) 0.6, Neutrophils # (Auto) 6.1, Lymphocytes # (Auto) 0.8 L, Monocytes # (Auto) 0.6, Eosinophils # (Auto) 0.2, Basophils # (Auto) 0.0, Calcium Level 9.3, Aspartate Amino Transf ( AST/SGOT) 29, Alanine Aminotransferase (ALT/SGPT) 30, Alkaline Phosphatase 94, Total Bilirubin 0.9, Total Protein 6.5, Albumin 3.0 L Labs 24H Laboratory Tests 2 03/20/17 11:43: Bedside Glucose (Misc Panel) 195H 03/20/17 16:26: Bedside Glucose (Misc Panel) 139H 03/20/17 20:36: Bedside Glucose (Misc Panel) 174H 03/21/17 05:44: White Blood Count 7.6, Red Blood Count 4.64, Hemoglobin 13.7L, Hematocrit 41.3L , Mean Corpuscular Volume 89.0, Mean Corpuscular Hemoglobin 29.5, Mean Corpuscular Hemoglobin Concent 33.2, Red Cell Distribution Width 13.6, Platelet Count 267, Neutrophils (%) (Auto) 79.5H, Lymphocytes (%) (Auto) 8.5L, Monocytes (%) (Auto) 7.5H, Eosinophils (%) (Auto) 2.0, Basophils (%) (Auto) 0.6, Neutrophils # (Auto) 6.1, Lymphocytes # (Auto) 0.8L, Monocytes # (Auto) 0.6, Eosinophils # (Auto) 0.2, Basophils # (Auto) 0.0, Large Unclassified Cells % 1.9 , Large Unclassified Cells # 0.1, Anion Gap 9, Glomerular Filtration Rate > 60.0 , Blood Urea Nitrogen 44H, Creatinine 1.13, Sodium Level 136, Potassium Level 4.5, Chloride Level 95L, Carbon Dioxide Level 32, Calcium Level 9.3, Aspartate Amino Transf (AST/SGOT) 29, Alanine Aminotransferase (ALT/SGPT) 30, Alkaline Phosphatase 94, Total Bilirubin 0.9, Total Protein 6.5, Albumin 3.0L, Albumin/ Globulin Ratio 0.86L Microbiology Microbiology 03/18/17 Gastrointestinal Tract Panel (PCR) - Final, Complete Current Medications Current Medications Current Medications Acetaminophen (Tylenol Suppository) 650 mg Q6HP PRN MI PAIN OR FEVER Last administered on 03/19/17 12:00; Start 03/17/17 at 10:30; Stop 04/16/17 at 10:29 Allopurinol (Zyloprim) 100 mg DAILY PEG Last administered on 03/21/17 08:11; Start 03/17/17 at 09:00; Stop 04/16/17 at 08:59 Aspirin (Aspirin Chewable) 81 mg DAILY PEG ; Start 03/18/17 at 09:00; Stop 03/18 at 09:00; Status DC Aspirin (Aspirin) 325 mg DAILY PEG Last administered on 03/21/17 08:11; Start 03/18/17 at 09:00; Stop 04/17/17 at 08:59 Dextrose (Dextrose 50%) 25 ml ASDIRECTED PRN IV SEE LABEL COMMENTS; Start 03/17 at 10:30; Stop 04/16/17 at 10:29 Enoxaparin Sodium (Lovenox) 40 mg DAILY SC Last administered on 03/21/17 08:12 ; Start 03/18/17 at 09:00; Stop 03/26/17 at 08:59 Furosemide (Lasix) 40 mg DAILY PEG Last administered on 03/21/17 08:11; Start 03/17/17 at 09:00; Stop 04/16/17 at 08:59 Glucagon (Glucagon) 1 mg ASDIRECTED PRN SC SEE LABEL COMMENTS; Start 03/17/17 at 10:30; Stop 04/16/17 at 10:29 Glucose (Glucose) 16 GM ASDIRECTED PRN PO SEE LABEL COMMENTS; Start 03/17/17 at 10:30; Stop 04/16/17 at 10:29 Home Med (Med Rec Complete!) ASDIRECTED XX ; Start 03/17/17 at 13:30; Stop at 13:34; Status DC Insulin Human Lispro (HumaLOG INSULIN) See Protocol Table AC SC Last administered on 03/21/17 08:10; Start 03/17/17 at 12:00; Stop 04/16/17 at 11:59 Insulin Human Lispro (HumaLOG INSULIN) See Protocol Table QHS SC ; Start at 21:00; Stop 04/16/17 at 20:59 Losartan Potassium (Cozaar) 100 mg DAILY PEG Last administered on 03/21/17 08: 12; Start 03/18/17 at 09:00; Stop 04/17/17 at 08:59 Metoprolol Tartrate (Lopressor) 100 mg BID PEG Last administered on 03/21/17 08:11; Start 03/17/17 at 09:00; Stop 04/16/17 at 08:59 Pravastatin Sodium (Pravachol) 80 mg QHS PEG Last administered on 03/20/17 20: 39; Start 03/17/17 at 21:00; Stop 04/16/17 at 20:59 Verapamil HCl (Calan) 120 mg TID PEG Last administered on 03/21/17 08:11; Start 03/17/17 at 16:00; Stop 04/16/17 at 15:59 JOSE JACOBS MD Mar 21, 2017 09:09
--- NOTE | 2017-03-21 11:14 | IPNPDOC ---
Date Seen The patient was seen on 03/21/17. Progress Note HPI: 76year oldM who was found on the floor by his on 03/06/17. He was subsequently found to have acute CVA at [facility]. The Pt is transferred to the care of SHABANA Farias 03/17/17. Pt denies pain, SOB, abdominal pain. Pt is a poor historian, shakes head to some questions but possibly unreliably. History is taken from chart and nursing today. 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 Peg tube 03/14/17. HTN Gout DM Dyslipidemia H/O AVB/Pacemaker CAD/MO CALE. Pt refuses CPAP. OA B/L Knees. Uses W/C at home. COPD M obesity. BMI 36.2 TTE 03/07/17. [facility]. EF60%, Mild LVH, Mod DD, Mild , Mild TR, Trace MR. CTA neck [facility] 03/07 10-15% carotid stenosis CTA Brain. [facility]. unremarkable. EEG. [facility]. No seizure activity noted. PSHX: peg tube 03/14/17 Pacemaker B/L knee arthroscopy. PE: GEN: 76yoM, appears stated age. Well-nourished, well developed. No acute distress. Alert, unable to verbalize answers to questions but does shake head yes and no to some questions. Sometimes with difficulty following commands. HEENT: Normocephalic, atraumatic. Pupils are equal, round, and reactive to light. Sclera are nonicteric. Conjunctiva without injection. Nose midline. Moist mucous membranes. Dentition fair. Pharynx pink and moist. Neck supple, trachea midline. No lymphadenopathy or thyromegaly appreciated. CHEST: Regular rate and rhythm, +S1, +S2. Systolic murmur noted. LUNGS: Clear to auscultation bilaterally. No wheezes, rales, or rhonchi. Breathing appears symmetric and easy. No accessory muscle use. ABD: Round, soft, NoTTP, non-distended. +Bowel sounds throughout. No rebound or guarding. No costovertebral angle tenderness. peg tube intact. EXT: Pulses 2+ bilaterally dorsalis pedis and radial. No lower extremity edema appreciated. SKIN: [place], dry, warm. Capillary refill <2sec. No rashes. NEURO: Alert. Aphasic. EKG 03/17/17 ELECTRONIC VENTRICULAR PACEMAKER Underlying rhythm appears to be aflutter Comparison tracing not on file CT A/P 03/18/17 There is cholelithiasis. Simple renal cysts. Enhancing left adrenal gland nodule. Noncontrast enhanced evaluation of this is recommended to ensure the entity represents a benign lesion. Colonic diverticulosis and colonic redundancy. PEG tube in place. A&P: 76year oldM who was found on the floor by his on 03/06/17. He was subsequently found to have acute CVA at [facility]. The Pt is transferred to the care of Dr Suero, ARU 03/17/17. No acute medical complaints today. 1. S/P CVA. left tempo parietal, with oral apraxia and global aphasia Mgmt as per Dr Suero. PT/OT/ST as per Dr Suero. Pain control as per Dr Suero Bowel care as per Dr Suero. DVT prophylaxis. Lovenox. Peg tube feedings. Pt NPO. Nutrition Clt. Pt seen by Neurology at [facility]. ASA 325mg daily. Out pt f/u. 2. HTN/HHD. Continue with Cozaar 100mg daily, Lasix po, Metoprolol 100mg BID, Verapamil 300mg daily. BP trend controlled. Reduced po lasix slightly to 20mg daily. 3. Gout. Allopurinol. 4. IDDM. Tube feedings. NPO. SSI. 5. Dyslipidemia. Pravachol 80 mg daily. 6. H/O CHB/Pacemaker. EKG indicates underlying Afib/Flutter. Similar on previous tracing at [facility] as well. Will request Cardiology opinion regarding anticoagulation. Spoke with Dr Dawson, he will see the pt. 7. CAD/H/O MO. Continue Metoprolol/ASA. 8. CALE. Pt refuses CPAP. Monitor. 9. M Obesity. Complicates care. BMI 36.2 10. OA B/L knees. Chronic unsteady gait related to his knees per Dtr, uses Wheelchair at home. 11. VHD. Mild /Mild TR/Trace MR. 12. H/O Rhabdomyolysis during admission. CK WNL. 13. Left Adrenal nodule. Further imaging requested as recommended. Pending. VS, I&O, 24H, Fishbone Vital Signs/I&O Vital Signs Date Time Temp Pulse Resp B/P (MAP) Pulse Ox O2 Delivery O2 Flow Rate FiO2 03/21/17 09:00 Room Air 03/21/17 08:11 60 145/69 03/21/17 05:46 97.8 20 98 I&O- Last 24 Hours up to 6 AM 03/21/17 05:59 Intake Total 2200 ml Balance 2200 ml Laboratory Data 24H LABS Laboratory Tests 2 03/20/17 11:43: Bedside Glucose (Misc Panel) 195H 03/20/17 16:26: Bedside Glucose (Misc Panel) 139H 03/20/17 20:36: Bedside Glucose (Misc Panel) 174H 03/21/17 05:44: White Blood Count 7.6, Red Blood Count 4.64, Hemoglobin 13.7L, Hematocrit 41.3L , Mean Corpuscular Volume 89.0, Mean Corpuscular Hemoglobin 29.5, Mean Corpuscular Hemoglobin Concent 33.2, Red Cell Distribution Width 13.6, Platelet Count 267, Neutrophils (%) (Auto) 79.5H, Lymphocytes (%) (Auto) 8.5L, Monocytes (%) (Auto) 7.5H, Eosinophils (%) (Auto) 2.0, Basophils (%) (Auto) 0.6, Neutrophils # (Auto) 6.1, Lymphocytes # (Auto) 0.8L, Monocytes # (Auto) 0.6, Eosinophils # (Auto) 0.2, Basophils # (Auto) 0.0, Large Unclassified Cells % 1.9 , Large Unclassified Cells # 0.1, Anion Gap 9, Glomerular Filtration Rate > 60.0 , Blood Urea Nitrogen 44H, Creatinine 1.13, Sodium Level 136, Potassium Level 4.5, Chloride Level 95L, Carbon Dioxide Level 32, Calcium Level 9.3, Aspartate Amino Transf (AST/SGOT) 29, Alanine Aminotransferase (ALT/SGPT) 30, Alkaline Phosphatase 94, Total Bilirubin 0.9, Total Protein 6.5, Albumin 3.0L, Albumin/ Globulin Ratio 0.86L CBC/BMP Laboratory Tests 03/21/17 05:44 Red Blood Count 4.64, Mean Corpuscular Volume 89.0, Mean Corpuscular Hemoglobin 29.5, Mean Corpuscular Hemoglobin Concent 33.2, Red Cell Distribution Width 13.6 , Neutrophils (%) (Auto) 79.5 H, Lymphocytes (%) (Auto) 8.5 L, Monocytes (%) ( Auto) 7.5 H, Eosinophils (%) (Auto) 2.0, Basophils (%) (Auto) 0.6, Neutrophils # (Auto) 6.1, Lymphocytes # (Auto) 0.8 L, Monocytes # (Auto) 0.6, Eosinophils # (Auto) 0.2, Basophils # (Auto) 0.0, Calcium Level 9.3, Aspartate Amino Transf ( AST/SGOT) 29, Alanine Aminotransferase (ALT/SGPT) 30, Alkaline Phosphatase 94, Total Bilirubin 0.9, Total Protein 6.5, Albumin 3.0 L Microbiology Microbiology 03/18/17 Gastrointestinal Tract Panel (PCR) - Final, Complete Chanda Wiggins Mar 21, 2017 11:14
[2017-03-21 13:42] VITALS: BP 135/63
[2017-03-21] MEDS ORDERED: traMADol 50 MG TAB PEG PRN (15:00)
[2017-03-21 20:28] VITALS: BP 115/56
--- NOTE | 2017-03-21 21:10 | REP ---
CT abdomen pelvis without contrast: 03/21/2017: Clinical history: Left adrenal nodule on CT scan with contrast 3 days ago. Technique: Scanning through the abdomen pelvis without oral or IV contrast. Findings: Lung bases show fibrotic changes. Small right pleural effusions resolved. Some deep sulci fibrotic changes are noted without consolidation, mass. Heart is enlarged with left atrial ventricular enlargement, multi lead pacer and coronary calcifications and calcifications at the aortic valve plane. I see no hiatal hernia. No hepatosplenomegaly, focal hepatic or splenic lesion nor intrahepatic biliary dilatation. Gallbladder shows a few calcified stones in its dependent portion of the duct is not dilated and shows no stone. Pancreas without mass, ductal dilatation or adjacent inflammatory change. Kidneys show no stone, mass, the cyst on the right or hydronephrosis. There is a lower pole cyst on the left as before. Right adrenal gland show slight thickening of limbs suggesting adrenal hyperplasia. The left adrenal gland shows a 2 cm nodule which is unchanged in size from the previous study. It has CT attenuation value of 28 capital HU which would indicate that this is not a definite benign fatty adenoma. It may still be benign adenoma or atypical adenoma but other lesions could also give this appearance. Bones show degenerative changes. The lower thoracic and upper lumbar spine with marginal osteophytes also in the lower lumbar spine with facet arthropathy, acute compression deformity with T11 wedging unchanged and with the lower ribs included to be unremarkable. Small bowel loops and colon in the upper abdomen were unremarkable as well. PEG tube as before. I do not see inflammatory changes about the cecum. Enteric edema. I see no effusion, perforation or free air in the abdomen or pelvis. CT pelvis: Small bowel loops and colon in the pelvis were grossly intact and unchanged. No ventral or inguinal hernia. There are degenerative changes in the hips, lumbosacral junction and SI joints without fracture, destructive lesion. Distal ureters without dilatation. Distal left colon, sigmoid and rectum without acute findings. Impression: 1. A 2 cm left adrenal nodule slightly hyperdense with attenuation value of 28 HU. This is not a definite benign adrenal adenoma that may still be adrenal adenoma with low fat content. Recommend periodic observation with CT scan only of the abdomen. In addition, if relevant with a smoking history, consider CT chest to look for potential source for possible metastatic lesion. I do not see any such source in the abdomen and pelvis. No other changes from 3 days ago. Signed by Todd Hoffman MD 03/21/2017 09:35 P
[2017-03-21] MEDS: PRAVASTATIN 20 MG TAB PEG SCH (21:25)
[2017-03-22 06:00] VITALS: BP 127/60
[2017-03-22 07:48] LABS: BASO # 0.1 K/mm3 (0.0-0.2); BASO % 0.7 % (0.0-1.0); EOS # 0.1 K/mm3 (0.0-0.50); EOS % 1.4 % (0.0-3.0); LARGE UNSTAINED CELL # 0.2 K/mm3 (0.0-0.4); LARGE UNSTAINED CELL % 2.5 % (0.0-4.0); LYMPH # 0.7 K/mm3 (1.5-4.5); LYMPH % 6.8 % (24.0-44.0); MEAN CORPUSCULAR HEMOGLOBIN 29.8 pg (27.0-33.0); MEAN CORPUSCULAR HGB CONC 33.7 g/dl (32.0-36.5); MEAN CORPUSCULAR VOLUME 88.4 fl (80.0-96.0); MONO # 0.9 K/mm3 (0.0-0.8); MONO % 8.9 % (0.0-5.0); NEUTROPHILS # 7.6 K/mm3 (1.8-7.7); NEUTROPHILS % 79.7 % (36.0-66.0); PLATELET COUNT, AUTOMATED 298 k/mm3 (150-450); RED CELL DISTRIBUTION WIDTH 13.3 % (11.5-14.5); WHITE BLOOD COUNT 9.6 K/mm3 (4.0-10.0)
[2017-03-22] MEDS: ENOXAPARIN 40 MG/0.4 ML SYRINGE (J1650) SC SCH (08:10)
[2017-03-22] MEDS: HumaLOG INSULIN (NovoLOG) PER UNIT SC SCH ×4 (08:10→20:18)
[2017-03-22] MEDS: ALLOPURINOL 100 MG TAB PEG SCH (08:11)
[2017-03-22] MEDS: ASPIRIN 325 MG TAB PEG SCH (08:11)
[2017-03-22] MEDS: FUROSEMIDE 20 MG TAB PEG SCH (08:11)
[2017-03-22] MEDS: LOSARTAN 50 MG TAB PEG SCH (08:11)
[2017-03-22] MEDS: METOPROLOL TARTRATE 100 MG TAB PEG SCH ×2 (08:11→20:57)
[2017-03-22] MEDS: VERAPAMIL 40 MG TAB PEG SCH ×3 (08:12→20:57)
[2017-03-22 08:19] LABS: ALBUMIN 3.3 GM/DL (3.2-5.2); ALBUMIN/GLOBULIN RATIO 0.94 (1.00-1.93); ALKALINE PHOSPHATASE 96 U/L (45-117); ALT/SGPT 28 U/L (12-78); ANION GAP 10 MEQ/L (8-16); AST/SGOT 29 U/L (15-37); BLOOD UREA NITROGEN 47 MG/DL (7-18); CALCIUM LEVEL 8.8 MG/DL (8.8-10.2); CARBON DIOXIDE LEVEL 28 MEQ/L (21-32); CHLORIDE LEVEL 96 MEQ/L (98-107); CREATININE FOR GFR 1.19 MG/DL (0.70-1.30); GLOMERULAR FILTRATION RATE > 60.0 (>42); GLUCOSE, FASTING 207 MG/DL (83-110); POTASSIUM SERUM 4.8 MEQ/L (3.5-5.1); SODIUM LEVEL 134 MEQ/L (136-145); TOTAL PROTEIN 6.8 GM/DL (6.4-8.2)
--- NOTE | 2017-03-22 11:07 | IPNPDOC ---
Academic Support Coordinator Progress Note DATE OF SERVICE: 03/22/17 DATE OF ADMISSION: Mar 17, 2017 at 12:30 INPATIENT REHABILITATION ADMISSION DAY: #6 SUBJECTIVE: Patient is a 76-year-old white male with large left temporoparietal CVA with mild right hemiparesis but dense global aphasia, oral apraxia, dysarthria and dysphasia. Patient with rhabdomyolyses and skin lesion of hip. Patient with after spray cardiovascular disease including valvular disease of aortic, mitral and tricuspid valves with pulmonary hypertension, arrhythmia history including atrial fibrillation with implanted pacemaker and hyperlipidemia. Patient also with morbid obesity and secondary obstructive sleep apnea though he refuses to use CPAP. Patient status post PEG tube for feeding and medications and remains nothing by mouth. Patient with a little discomfort in the abdomen especially around the PEG site. Patient shakes his head with regards to other pains or problems as being no. ALLERGIES: See Below MEDICATIONS: Reviewed, see below. OBJECTIVE: VITAL SIGNS: Please see below. PHYSICAL EXAMINATION: GENERAL: Pleasant elderly white male who is below average height and morbidly obese sitting up in manual wheelchair in his room this morning in no acute distress. HEENT: Mild right facial droop is improved with more intelligible speech today, otherwise atraumatic/normocephalic. CARDIOVASCULAR: Regular rate and rhythm with normal S1 and S2 and grade 4/6 holosystolic murmur. 2/4 bilateral radial pulses. LUNGS: All baird clear to auscultation. ABDOMEN: Obese, less distended with mild tenderness around PEG site. PEG site without any inflammation or drainage. NEUROLOGICAL: Patient is alert and some automatic and spontaneous speech this morning. He is still unable to extend tongue and speech is dysarthric. He does seem to be better than random on his shaking head yes and no, but still making some errors. He does participate well with therapy and examination. Still unable to test appropriately the sensorimotor due to poor communications. SKIN: Hip sore is erythematous, irregular in shape and may reflect greater trochanter pressure when patient was down in the kitchen and not moving. LABORATORY DATA: Reviewed. Please see below. MICROBIOLOGY: Please see below. IMAGING: No new imaging. DVT prophylaxis ordered?: Williex and LEOBARDO white. ASSESSMENT AND PLAN: 1. Rehabilitation of left temporoparietal CVA: Patient progressing with physical therapy, occupational therapy and speech-language pathology and making gains. Patient showing good motivation and participation with therapists so far. More automatic and spontaneous speech today with less dysarthric and poorly intelligible speech and less facial droop and OT noted less apraxia in swabbing mouth this morning. 2. Acute kidney injury: Creatinine normal at 1.19 with BUN elevated at 47. Furosemide reduced to 20 mg daily. I will increase flushes for now to 175 ml of H2O. 3. Hypertension: Blood pressures fairly stable and we will continue to monitor. 4. Hypo-albuminemia: Currently 3.3 which is better and normal. 5. Left Adrenal Mass: CT without contrast suggests it is not clearly a benign mass, but could still be and periodic repeat scans to gauge any changes/growth should be used for followup. TIME SPENT: Chart Review, examination and documentation require greater than 25 minutes. Allergies Coded Allergies: Penicillin V (Verified Allergy, Unknown, 03/17/17) Penicillins (Verified Allergy, Unknown, 03/17/17) Vital Signs Vital Signs Date Time Temp Pulse Resp B/P (MAP) Pulse Ox O2 Delivery O2 Flow Rate FiO2 03/22/17 09:00 Room Air 03/22/17 08:11 60 127/60 03/22/17 06:00 98.0 18 100 Laboratory Data CBC/BMP Laboratory Tests 03/22/17 07:19 Red Blood Count 4.64, Mean Corpuscular Volume 88.4, Mean Corpuscular Hemoglobin 29.8, Mean Corpuscular Hemoglobin Concent 33.7, Red Cell Distribution Width 13.3 , Neutrophils (%) (Auto) 79.7 H, Lymphocytes (%) (Auto) 6.8 L, Monocytes (%) ( Auto) 8.9 H, Eosinophils (%) (Auto) 1.4, Basophils (%) (Auto) 0.7, Neutrophils # (Auto) 7.6, Lymphocytes # (Auto) 0.7 L, Monocytes # (Auto) 0.9 H, Eosinophils # (Auto) 0.1, Basophils # (Auto) 0.1, Calcium Level 8.8, Aspartate Amino Transf (AST/SGOT) 29, Alanine Aminotransferase (ALT/SGPT) 28, Alkaline Phosphatase 96, Total Bilirubin 1.0, Total Protein 6.8, Albumin 3.3 Labs 24H Laboratory Tests 2 03/21/17 11:30: Bedside Glucose (Misc Panel) 228H 03/21/17 16:35: Bedside Glucose (Misc Panel) 108 03/21/17 21:13: Bedside Glucose (Misc Panel) 173H 03/22/17 06:53: Bedside Glucose (Misc Panel) 196H 03/22/17 07:19: White Blood Count 9.6, Red Blood Count 4.64, Hemoglobin 13.9L, Hematocrit 41.1L , Mean Corpuscular Volume 88.4, Mean Corpuscular Hemoglobin 29.8, Mean Corpuscular Hemoglobin Concent 33.7, Red Cell Distribution Width 13.3, Platelet Count 298, Neutrophils (%) (Auto) 79.7H, Lymphocytes (%) (Auto) 6.8L, Monocytes (%) (Auto) 8.9H, Eosinophils (%) (Auto) 1.4, Basophils (%) (Auto) 0.7, Neutrophils # (Auto) 7.6, Lymphocytes # (Auto) 0.7L, Monocytes # (Auto) 0.9H, Eosinophils # (Auto) 0.1, Basophils # (Auto) 0.1, Large Unclassified Cells % 2.5 , Large Unclassified Cells # 0.2, Anion Gap 10, Glomerular Filtration Rate > 60.0, Blood Urea Nitrogen 47H, Creatinine 1.19, Sodium Level 134L, Potassium Level 4.8, Chloride Level 96L, Carbon Dioxide Level 28, Calcium Level 8.8, Aspartate Amino Transf (AST/SGOT) 29, Alanine Aminotransferase (ALT/SGPT) 28, Alkaline Phosphatase 96, Total Bilirubin 1.0, Total Protein 6.8, Albumin 3.3, Albumin/Globulin Ratio 0.94L Microbiology Microbiology 03/18/17 Gastrointestinal Tract Panel (PCR) - Final, Complete Current Medications Current Medications Current Medications Acetaminophen (Tylenol Suppository) 650 mg Q6HP PRN AK PAIN OR FEVER Last administered on 03/19/17 12:00; Start 03/17/17 at 10:30; Stop 03/21/17 at 14:46 ; Status DC Acetaminophen (Tylenol Suspension) 650 mg Q6HP PRN PEG PAIN OR FEVER; Start at 14:45; Stop 04/20/17 at 14:44 Allopurinol (Zyloprim) 100 mg DAILY PEG Last administered on 03/22/17 08:11; Start 03/17/17 at 09:00; Stop 04/16/17 at 08:59 Aspirin (Aspirin Chewable) 81 mg DAILY PEG ; Start 03/18/17 at 09:00; Stop 03/18 at 09:00; Status DC Aspirin (Aspirin) 325 mg DAILY PEG Last administered on 03/22/17 08:11; Start 03/18/17 at 09:00; Stop 04/17/17 at 08:59 Dextrose (Dextrose 50%) 25 ml ASDIRECTED PRN IV SEE LABEL COMMENTS; Start 03/17 at 10:30; Stop 04/16/17 at 10:29 Enoxaparin Sodium (Lovenox) 40 mg DAILY SC Last administered on 03/22/17 08:10 ; Start 03/18/17 at 09:00; Stop 03/26/17 at 08:59 Furosemide (Lasix) 20 mg DAILY PEG Last administered on 03/22/17 08:11; Start 03/22/17 at 09:00; Stop 04/21/17 at 08:59 Furosemide (Lasix) 40 mg DAILY PEG Last administered on 03/21/17 08:11; Start 03/17/17 at 09:00; Stop 03/21/17 at 09:12; Status DC Glucagon (Glucagon) 1 mg ASDIRECTED PRN SC SEE LABEL COMMENTS; Start 03/17/17 at 10:30; Stop 04/16/17 at 10:29 Glucose (Glucose) 16 GM ASDIRECTED PRN PO SEE LABEL COMMENTS; Start 03/17/17 at 10:30; Stop 04/16/17 at 10:29 Home Med (Med Rec Complete!) ASDIRECTED XX ; Start 03/17/17 at 13:30; Stop at 13:34; Status DC Insulin Human Lispro (HumaLOG INSULIN) See Protocol Table AC SC Last administered on 03/22/17 08:10; Start 03/17/17 at 12:00; Stop 04/16/17 at 11:59 Insulin Human Lispro (HumaLOG INSULIN) See Protocol Table QHS SC ; Start at 21:00; Stop 04/16/17 at 20:59 Losartan Potassium (Cozaar) 100 mg DAILY PEG Last administered on 03/22/17 08: 11; Start 03/18/17 at 09:00; Stop 04/17/17 at 08:59 Metoprolol Tartrate (Lopressor) 100 mg BID PEG Last administered on 03/22/17 08 :11; Start 03/17/17 at 09:00; Stop 04/16/17 at 08:59 Pravastatin Sodium (Pravachol) 80 mg QHS PEG Last administered on 03/21/17 21: 25; Start 03/17/17 at 21:00; Stop 04/16/17 at 20:59 Tramadol HCl (Ultram) 50 mg Q8HP PRN PEG PAIN SCALE 6-10; Start 03/21/17 at 15: 00; Stop 03/28/17 at 14:59 Verapamil HCl (Calan) 120 mg TID PEG Last administered on 03/22/17 08:12; Start 03/17/17 at 16:00; Stop 04/16/17 at 15:59 JOSE JACOBS MD Mar 22, 2017 11:07
--- NOTE | 2017-03-22 12:39 | IPNPDOC ---
Date Seen The patient was seen on 03/22/17. Progress Note HPI: 76year oldM who was found on the floor by his on 03/06/17. He was subsequently found to have acute CVA at [facility]. The Pt is transferred to the care of SHABANA Farias 03/17/17. Pt denies pain, SOB, abdominal pain. Pt is shakes head, denies pain. 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 Peg tube 03/14/17. HTN Gout DM Dyslipidemia H/O AVB/Pacemaker CAD/VT CALE. Pt refuses CPAP. OA B/L Knees. Uses W/C at home. COPD M obesity. BMI 36.2 TTE 03/07/17. [facility]. EF60%, Mild LVH, Mod DD, Mild , Mild TR, Trace MR. CTA neck [facility] 03/07 10-15% carotid stenosis CTA Brain. [facility]. unremarkable. EEG. [facility]. No seizure activity noted. PSHX: peg tube 03/14/17 Pacemaker B/L knee arthroscopy. PE: GEN: 76yoM, appears stated age. Well-nourished, well developed. No acute distress. Alert, unable to verbalize answers to questions but does shake head yes and no to some questions. Sometimes with difficulty following commands. HEENT: Normocephalic, atraumatic. Pupils are equal, round, and reactive to light. Sclera are nonicteric. Conjunctiva without injection. Nose midline. Moist mucous membranes. Dentition fair. Pharynx pink and moist. Neck supple, trachea midline. No lymphadenopathy or thyromegaly appreciated. CHEST: Regular rate and rhythm, +S1, +S2. Systolic murmur noted. LUNGS: Clear to auscultation bilaterally. No wheezes, rales, or rhonchi. Breathing appears symmetric and easy. No accessory muscle use. ABD: Round, soft, NoTTP, non-distended. +Bowel sounds throughout. No rebound or guarding. No costovertebral angle tenderness. peg tube intact. EXT: Pulses 2+ bilaterally dorsalis pedis and radial. trace lower extremity edema appreciated (LEs dependent in chair). SKIN: [place], dry, warm. Capillary refill <2sec. No rashes. NEURO: Alert. Aphasic. EKG 03/17/17 ELECTRONIC VENTRICULAR PACEMAKER Underlying rhythm appears to be aflutter Comparison tracing not on file CT A/P 03/18/17 There is cholelithiasis. Simple renal cysts. Enhancing left adrenal gland nodule. Noncontrast enhanced evaluation of this is recommended to ensure the entity represents a benign lesion. Colonic diverticulosis and colonic redundancy. PEG tube in place. CT 03/21/17 A 2 cm left adrenal nodule slightly hyperdense with attenuation value of 28 HU. This is not a definite benign adrenal adenoma that may still be adrenal adenoma with low fat content. Recommend periodic observation with CT scan only of the abdomen. In addition, if relevant with a smoking history, consider CT chest to look for potential source for possible metastatic lesion. I do not see any such source in the abdomen and pelvis. No other changes from 3 days ago. A&P: 76year oldM who was found on the floor by his on 03/06/17. He was subsequently found to have acute CVA at [facility]. The Pt is transferred to the care of Dr Suero, DCU 03/17/17. No acute medical complaints today. 1. S/P CVA. left tempo parietal, with oral apraxia and global aphasia Mgmt as per Dr Suero. PT/OT/ST as per Dr Suero. Pain control as per Dr Suero Bowel care as per Dr Suero. DVT prophylaxis. Lovenox. Peg tube feedings. Pt NPO. Nutrition Clt. Pt seen by Neurology at [facility]. ASA 325mg daily. Out pt f/u. 2. HTN/HHD. Continue with Cozaar 100mg daily, Lasix po, Metoprolol 100mg BID, Verapamil 300mg daily. BP trend controlled. Reduced po lasix slightly to 20mg daily. 3. Gout. Allopurinol. 4. IDDM. Tube feedings. NPO. SSI. 5. Dyslipidemia. Pravachol 80 mg daily. 6. H/O CHB/Pacemaker. EKG indicates underlying Afib/Flutter. Similar on previous tracing at [facility] as well. Will request Cardiology opinion regarding anticoagulation. Spoke with Dr Kraft, he will see the pt. 7. CAD/H/O VT. Continue Metoprolol/ASA. 8. CALE. Pt refuses CPAP. Monitor. 9. M Obesity. Complicates care. BMI 36.2 10. OA B/L knees. Chronic unsteady gait related to his knees per Dtr, uses Wheelchair at home. 11. VHD. Mild /Mild TR/Trace MR. 12. H/O Rhabdomyolysis during admission. CK WNL. 13. Left Adrenal nodule. Plan to continue with outpt F/U, periodic CT scan abdomen. VS, I&O, 24H, Fishbone Vital Signs/I&O Vital Signs Date Time Temp Pulse Resp B/P (MAP) Pulse Ox O2 Delivery O2 Flow Rate FiO2 03/22/17 09:00 Room Air 03/22/17 08:11 60 127/60 03/22/17 06:00 98.0 18 100 I&O- Last 24 Hours up to 6 AM 03/22/17 06:00 Intake Total 2400 ml Balance 2400 ml Laboratory Data 24H LABS Laboratory Tests 2 03/21/17 16:35: Bedside Glucose (Misc Panel) 108 03/21/17 21:13: Bedside Glucose (Misc Panel) 173H 03/22/17 06:53: Bedside Glucose (Misc Panel) 196H 03/22/17 07:19: White Blood Count 9.6, Red Blood Count 4.64, Hemoglobin 13.9L, Hematocrit 41.1L , Mean Corpuscular Volume 88.4, Mean Corpuscular Hemoglobin 29.8, Mean Corpuscular Hemoglobin Concent 33.7, Red Cell Distribution Width 13.3, Platelet Count 298, Neutrophils (%) (Auto) 79.7H, Lymphocytes (%) (Auto) 6.8L, Monocytes (%) (Auto) 8.9H, Eosinophils (%) (Auto) 1.4, Basophils (%) (Auto) 0.7, Neutrophils # (Auto) 7.6, Lymphocytes # (Auto) 0.7L, Monocytes # (Auto) 0.9H, Eosinophils # (Auto) 0.1, Basophils # (Auto) 0.1, Large Unclassified Cells % 2.5 , Large Unclassified Cells # 0.2, Anion Gap 10, Glomerular Filtration Rate > 60.0, Blood Urea Nitrogen 47H, Creatinine 1.19, Sodium Level 134L, Potassium Level 4.8, Chloride Level 96L, Carbon Dioxide Level 28, Calcium Level 8.8, Aspartate Amino Transf (AST/SGOT) 29, Alanine Aminotransferase (ALT/SGPT) 28, Alkaline Phosphatase 96, Total Bilirubin 1.0, Total Protein 6.8, Albumin 3.3, Albumin/Globulin Ratio 0.94L 03/22/17 11:41: Bedside Glucose (Misc Panel) 201H CBC/BMP Laboratory Tests 03/22/17 07:19 Red Blood Count 4.64, Mean Corpuscular Volume 88.4, Mean Corpuscular Hemoglobin 29.8, Mean Corpuscular Hemoglobin Concent 33.7, Red Cell Distribution Width 13.3 , Neutrophils (%) (Auto) 79.7 H, Lymphocytes (%) (Auto) 6.8 L, Monocytes (%) ( Auto) 8.9 H, Eosinophils (%) (Auto) 1.4, Basophils (%) (Auto) 0.7, Neutrophils # (Auto) 7.6, Lymphocytes # (Auto) 0.7 L, Monocytes # (Auto) 0.9 H, Eosinophils # (Auto) 0.1, Basophils # (Auto) 0.1, Calcium Level 8.8, Aspartate Amino Transf (AST/SGOT) 29, Alanine Aminotransferase (ALT/SGPT) 28, Alkaline Phosphatase 96, Total Bilirubin 1.0, Total Protein 6.8, Albumin 3.3 Microbiology Microbiology 03/18/17 Gastrointestinal Tract Panel (PCR) - Final, Complete Chanda Wiggins Mar 22, 2017 12:39
[2017-03-22] MEDS: ACETAMINOPHEN 325 MG/10.15 ML UDC PEG PRN (13:52)
[2017-03-22 14:00] VITALS: BP 132/55
[2017-03-22 20:00] VITALS: BP 120/60
[2017-03-22] MEDS: PRAVASTATIN 20 MG TAB PEG SCH (20:57)
[2017-03-23 05:20] VITALS: BP 133/67
[2017-03-23 06:34] LABS: BASO % 0.4 % (0.0-1.0); EOS # 0.2 K/mm3 (0.0-0.50); EOS % 1.7 % (0.0-3.0); LARGE UNSTAINED CELL # 0.1 K/mm3 (0.0-0.4); LARGE UNSTAINED CELL % 1.5 % (0.0-4.0); LYMPH # 0.8 K/mm3 (1.5-4.5); LYMPH % 6.8 % (24.0-44.0); MEAN CORPUSCULAR HEMOGLOBIN 29.6 pg (27.0-33.0); MEAN CORPUSCULAR VOLUME 89.7 fl (80.0-96.0); MONO # 0.6 K/mm3 (0.0-0.8); MONO % 6.2 % (0.0-5.0); NEUTROPHILS # 7.7 K/mm3 (1.8-7.7); NEUTROPHILS % 83.5 % (36.0-66.0); PLATELET COUNT, AUTOMATED 277 k/mm3 (150-450); RED CELL DISTRIBUTION WIDTH 13.5 % (11.5-14.5); WHITE BLOOD COUNT 9.3 K/mm3 (4.0-10.0)
[2017-03-23 07:01] LABS: CALCIUM LEVEL 9.3 MG/DL (8.8-10.2); CREATININE FOR GFR 1.34 MG/DL (0.70-1.30); GLOMERULAR FILTRATION RATE 54.9 (>42); POTASSIUM SERUM 4.5 MEQ/L (3.5-5.1)
[2017-03-23 07:02] LABS: ALBUMIN 3.3 GM/DL (3.2-5.2); ALBUMIN/GLOBULIN RATIO 0.73 (1.00-1.93); BILIRUBIN,TOTAL 1.1 MG/DL (0.2-1.0); TOTAL PROTEIN 7.8 GM/DL (6.4-8.2)
[2017-03-23] MEDS: HumaLOG INSULIN (NovoLOG) PER UNIT SC SCH ×4 (08:29→20:44)
[2017-03-23] MEDS: VERAPAMIL 40 MG TAB PEG SCH ×3 (08:31→20:44)
[2017-03-23] MEDS: ASPIRIN 325 MG TAB PEG SCH (08:31)
[2017-03-23] MEDS: ALLOPURINOL 100 MG TAB PEG SCH (08:31)
[2017-03-23] MEDS: LOSARTAN 50 MG TAB PEG SCH (08:31)
[2017-03-23] MEDS: ENOXAPARIN 40 MG/0.4 ML SYRINGE (J1650) SC SCH (08:31)
[2017-03-23] MEDS: METOPROLOL TARTRATE 100 MG TAB PEG SCH ×2 (08:32→20:43)
[2017-03-23] MEDS: FUROSEMIDE 20 MG TAB PEG SCH (08:56)
--- NOTE | 2017-03-23 11:34 | IPNPDOC ---
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 Patient with rhabdomyolyses and skin lesion of hip. Patient with after spray cardiovascular disease including valvular disease of aortic, mitral and tricuspid valves with pulmonary hypertension, arrhythmia history including atrial fibrillation with implanted pacemaker and hyperlipidemia. Patient also with morbid obesity and secondary obstructive sleep apnea though he refuses to use CPAP. Patient status post PEG tube for feeding and medications and remains nothing by mouth. Patient with a little discomfort in the abdomen especially around the PEG site. Patient shakes his head with regards to other pains as some periodic abdominal pain, but regarding other problems as being no. ALLERGIES: See Below MEDICATIONS: Reviewed, see below. OBJECTIVE: VITAL SIGNS: Please see below. PHYSICAL EXAMINATION: GENERAL: Pleasant elderly white male who is below average height and morbidly obese sitting up in manual wheelchair in his room this morning in no acute distress. HEENT: Mild right facial droop is improved with more intelligible speech today, otherwise atraumatic/normocephalic. CARDIOVASCULAR: Regular rate and rhythm with normal S1 and S2 and grade 4/6 holosystolic murmur. 2/4 bilateral radial pulses. LUNGS: All baird clear to auscultation. ABDOMEN: Obese, less distended with mild tenderness around PEG site. PEG site without any inflammation or drainage. NEUROLOGICAL: Patient is alert and more automatic and spontaneous speech this morning (Told me "Good Morning"). He is showing his speech to be less dysarthric. He does seem to be better than random on his shaking head yes and no , but still making some errors. He does participate well with therapy and examination. Still unable to test appropriately the sensorimotor due to poor communications. SKIN: Hip sore is erythematous, irregular in shape and may reflect greater trochanter pressure when patient was down in the kitchen and not moving. LABORATORY DATA: Reviewed. Please see below. MICROBIOLOGY: Please see below. IMAGING: No new imaging. DVT prophylaxis ordered?: Lovenox and LEOBARDO white. ASSESSMENT AND PLAN: 1. Rehabilitation of left temporoparietal CVA: Patient progressing with physical therapy, occupational therapy and speech-language pathology and making gains. Patient showing good motivation and participation with therapists so far. More automatic and spontaneous speech today with less dysarthric and fairly intelligible speech and less facial droop. Patient able to communicate need to go to bathroom with gestures and cued me and the BRIM WELT SEWING MACHINE OPERATOR as to what he needed to walk there (Walker and Gait Belt). 2. Acute kidney injury: Creatinine now elevated at 1.34 with BUN elevated at 46. Furosemide reduced to 20 mg daily, but held today by me. I will increase flushes for now to 175 ml of H2O. 3. Hypertension: Blood pressures fairly stable and we will continue to monitor. 4. Hypo-albuminemia: Currently 3.3 which is better and normal. 5. Left Adrenal Mass: CT without contrast suggests it is not clearly a benign mass, but could still be and periodic repeat scans to gauge any changes/growth should be used for followup. 6. Mild elevation of Total Bilirubin: 1.1 today. We will watch. TIME SPENT: Chart Review, examination and documentation require greater than 25 minutes. Allergies Coded Allergies: Penicillin V (Verified Allergy, Unknown, 03/17/17) Penicillins (Verified Allergy, Unknown, 03/17/17) Vital Signs Vital Signs Date Time Temp Pulse Resp B/P (MAP) Pulse Ox O2 Delivery O2 Flow Rate FiO2 03/23/17 08:32 89 133/67 03/23/17 08:00 Room Air 03/23/17 05:20 98.0 18 97 Laboratory Data CBC/BMP Laboratory Tests 03/23/17 06:18 Red Blood Count 4.52, Mean Corpuscular Volume 89.7, Mean Corpuscular Hemoglobin 29.6, Mean Corpuscular Hemoglobin Concent 33.0, Red Cell Distribution Width 13.5 , Neutrophils (%) (Auto) 83.5 H, Lymphocytes (%) (Auto) 6.8 L, Monocytes (%) ( Auto) 6.2 H, Eosinophils (%) (Auto) 1.7, Basophils (%) (Auto) 0.4, Neutrophils # (Auto) 7.7, Lymphocytes # (Auto) 0.8 L, Monocytes # (Auto) 0.6, Eosinophils # (Auto) 0.2, Basophils # (Auto) 0.0, Calcium Level 9.3, Aspartate Amino Transf ( AST/SGOT) 31, Alanine Aminotransferase (ALT/SGPT) 28, Alkaline Phosphatase 99, Total Bilirubin 1.1 H, Total Protein 7.8, Albumin 3.3 Labs 24H Laboratory Tests 2 03/22/17 11:41: Bedside Glucose (Misc Panel) 201H 03/22/17 16:36: Bedside Glucose (Misc Panel) 139H 03/22/17 20:08: Bedside Glucose (Misc Panel) 175H 03/23/17 06:18: White Blood Count 9.3, Red Blood Count 4.52, Hemoglobin 13.4L, Hematocrit 40.5L , Mean Corpuscular Volume 89.7, Mean Corpuscular Hemoglobin 29.6, Mean Corpuscular Hemoglobin Concent 33.0, Red Cell Distribution Width 13.5, Platelet Count 277, Neutrophils (%) (Auto) 83.5H, Lymphocytes (%) (Auto) 6.8L, Monocytes (%) (Auto) 6.2H, Eosinophils (%) (Auto) 1.7, Basophils (%) (Auto) 0.4, Neutrophils # (Auto) 7.7, Lymphocytes # (Auto) 0.8L, Monocytes # (Auto) 0.6, Eosinophils # (Auto) 0.2, Basophils # (Auto) 0.0, Large Unclassified Cells % 1.5 , Large Unclassified Cells # 0.1, Anion Gap 7L, Glomerular Filtration Rate 54.9 , Blood Urea Nitrogen 46H, Creatinine 1.34H, Sodium Level 134L, Potassium Level 4.5, Chloride Level 94L, Carbon Dioxide Level 33H, Calcium Level 9.3, Aspartate Amino Transf (AST/SGOT) 31, Alanine Aminotransferase (ALT/SGPT) 28, Alkaline Phosphatase 99, Total Bilirubin 1.1H, Total Protein 7.8, Albumin 3.3, Albumin/ Globulin Ratio 0.73L Microbiology Microbiology 03/18/17 Gastrointestinal Tract Panel (PCR) - Final, Complete Current Medications Current Medications Current Medications Acetaminophen (Tylenol Suppository) 650 mg Q6HP PRN [place] PAIN OR FEVER Last administered on 03/19/17 12:00; Start 03/17/17 at 10:30; Stop 03/21/17 at 14:46 ; Status DC Acetaminophen (Tylenol Suspension) 650 mg Q6HP PRN PEG PAIN OR FEVER Last administered on 03/22/17 13:52; Start 03/21/17 at 14:45; Stop 04/20/17 at 14:44 Allopurinol (Zyloprim) 100 mg DAILY PEG Last administered on 03/23/17 08:31; Start 03/17/17 at 09:00; Stop 04/16/17 at 08:59 Aspirin (Aspirin Chewable) 81 mg DAILY PEG ; Start 03/18/17 at 09:00; Stop 03/18 at 09:00; Status DC Aspirin (Aspirin) 325 mg DAILY PEG Last administered on 03/23/17 08:31; Start 03/18/17 at 09:00; Stop 04/17/17 at 08:59 Dextrose (Dextrose 50%) 25 ml ASDIRECTED PRN IV SEE LABEL COMMENTS; Start 03/17 at 10:30; Stop 04/16/17 at 10:29 Enoxaparin Sodium (Lovenox) 40 mg DAILY SC Last administered on 03/23/17 08:31 ; Start 03/18/17 at 09:00; Stop 03/26/17 at 08:59 Furosemide (Lasix) 20 mg DAILY PEG Last administered on 03/22/17 08:11; Start 03/22/17 at 09:00; Stop 03/23/17 at 10:07; Status DC Furosemide (Lasix) 40 mg DAILY PEG Last administered on 03/21/17 08:11; Start 03/17/17 at 09:00; Stop 03/21/17 at 09:12; Status DC Glucagon (Glucagon) 1 mg ASDIRECTED PRN SC SEE LABEL COMMENTS; Start 03/17/17 at 10:30; Stop 04/16/17 at 10:29 Glucose (Glucose) 16 GM ASDIRECTED PRN PO SEE LABEL COMMENTS; Start 03/17/17 at 10:30; Stop 04/16/17 at 10:29 Home Med (Med Rec Complete!) ASDIRECTED XX ; Start 03/17/17 at 13:30; Stop at 13:34; Status DC Insulin Human Lispro (HumaLOG INSULIN) See Protocol Table AC SC Last administered on 03/23/17 08:29; Start 03/17/17 at 12:00; Stop 04/16/17 at 11:59 Insulin Human Lispro (HumaLOG INSULIN) See Protocol Table QHS SC ; Start at 21:00; Stop 04/16/17 at 20:59 Losartan Potassium (Cozaar) 100 mg DAILY PEG Last administered on 03/23/17 08: 31; Start 03/18/17 at 09:00; Stop 04/17/17 at 08:59 Metoprolol Tartrate (Lopressor) 100 mg BID PEG Last administered on 03/23/17 08 :32; Start 03/17/17 at 09:00; Stop 04/16/17 at 08:59 Pravastatin Sodium (Pravachol) 80 mg QHS PEG Last administered on 03/22/17 20: 57; Start 03/17/17 at 21:00; Stop 04/16/17 at 20:59 Tramadol HCl (Ultram) 50 mg Q8HP PRN PEG PAIN SCALE 6-10; Start 03/21/17 at 15: 00; Stop 03/28/17 at 14:59 Verapamil HCl (Calan) 120 mg TID PEG Last administered on 03/23/17 08:31; Start 03/17/17 at 16:00; Stop 04/16/17 at 15:59 JOSE JACOBS MD Mar 23, 2017 11:34
--- NOTE | 2017-03-23 11:53 | IPNPDOC ---
Date Seen The patient was seen on 03/23/17. Progress Note HPI: 76year oldM who was found on the floor by his on 03/06/17. He was subsequently found to have acute CVA at [facility]. The Pt is transferred to the care of SHABANA Farias 03/17/17. Pt denies pain, SOB, abdominal pain. Pt shakes head yes /no, denies pain. 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 Peg tube 03/14/17. HTN Gout DM Dyslipidemia H/O AVB/Pacemaker CAD/VT CALE. Pt refuses CPAP. OA B/L Knees. Uses W/C at home. COPD M obesity. BMI 36.2 TTE 03/07/17. [facility]. EF60%, Mild LVH, Mod DD, Mild , Mild TR, Trace MR. CTA neck [facility] 03/07 10-15% carotid stenosis CTA Brain. [facility]. unremarkable. EEG. [facility]. No seizure activity noted. PSHX: peg tube 03/14/17 Pacemaker B/L knee arthroscopy. PE: GEN: 76yoM, appears stated age. Well-nourished, well developed. No acute distress. Alert, unable to verbalize answers to questions but does shake head yes and no to some questions. Sometimes with difficulty following commands. HEENT: Normocephalic, atraumatic. Pupils are equal, round, and reactive to light. Sclera are nonicteric. Conjunctiva without injection. Nose midline. Moist mucous membranes. Dentition fair. Pharynx pink and moist. Neck supple, trachea midline. No lymphadenopathy or thyromegaly appreciated. CHEST: Regular rate and rhythm, +S1, +S2. Systolic murmur noted. LUNGS: Clear to auscultation bilaterally. No wheezes, rales, or rhonchi. Breathing appears symmetric and easy. No accessory muscle use. ABD: Round, soft, NoTTP, non-distended. +Bowel sounds throughout. No rebound or guarding. No costovertebral angle tenderness. peg tube intact. EXT: Pulses 2+ bilaterally dorsalis pedis and radial. trace lower extremity edema appreciated (LEs dependent in chair). SKIN: [place], dry, warm. Capillary refill <2sec. No rashes. NEURO: Alert. Aphasic. EKG 03/17/17 ELECTRONIC VENTRICULAR PACEMAKER Underlying rhythm appears to be aflutter Comparison tracing not on file CT A/P 03/18/17 There is cholelithiasis. Simple renal cysts. Enhancing left adrenal gland nodule. Noncontrast enhanced evaluation of this is recommended to ensure the entity represents a benign lesion. Colonic diverticulosis and colonic redundancy. PEG tube in place. CT 03/21/17 A 2 cm left adrenal nodule slightly hyperdense with attenuation value of 28 HU. This is not a definite benign adrenal adenoma that may still be adrenal adenoma with low fat content. Recommend periodic observation with CT scan only of the abdomen. In addition, if relevant with a smoking history, consider CT chest to look for potential source for possible metastatic lesion. I do not see any such source in the abdomen and pelvis. No other changes from 3 days ago. A&P: 76year oldM who was found on the floor by his on 03/06/17. He was subsequently found to have acute CVA at [facility]. The Pt is transferred to the care of Dr Suero, MOU 03/17/17. No acute medical complaints today. 1. S/P CVA. left tempo parietal, with oral apraxia and global aphasia Mgmt as per Dr Suero. PT/OT/ST as per Dr Suero. Pain control as per Dr Suero Bowel care as per Dr Suero. DVT prophylaxis. Lovenox. Peg tube feedings. Pt NPO. Nutrition Clt. Pt seen by Neurology at [facility]. ASA 325mg daily. Out pt f/u. 2. HTN/HHD. Hold Lasix po related to increased SCR 1.34. Continue with Cozaar 100mg daily, Metoprolol 100mg BID, Verapamil 300mg daily. BP trend controlled. Monitor BMP. 3. Gout. Allopurinol. 4. IDDM. Tube feedings. NPO. SSI. 5. Dyslipidemia. Pravachol 80 mg daily. 6. H/O CHB/Pacemaker. EKG indicates underlying Afib/Flutter. Similar on previous tracing at [facility] as well. Will request Cardiology opinion regarding anticoagulation. Spoke with Dr Kraft, he will see the pt. 7. CAD/H/O VT. Continue Metoprolol/ASA. 8. CALE. Pt refuses CPAP. Monitor. 9. M Obesity. Complicates care. BMI 36.2 10. OA B/L knees. Chronic unsteady gait related to his knees per Dtr, uses Wheelchair at home. 11. VHD. Mild /Mild TR/Trace MR. 12. H/O Rhabdomyolysis during admission. CK WNL. 13. Left Adrenal nodule. Plan to continue with outpt F/U, periodic CT scan abdomen. VS, I&O, 24H, Fishbone Vital Signs/I&O Vital Signs Date Time Temp Pulse Resp B/P (MAP) Pulse Ox O2 Delivery O2 Flow Rate FiO2 03/23/17 08:32 89 133/67 03/23/17 08:00 Room Air 03/23/17 05:20 98.0 18 97 I&O- Last 24 Hours up to 6 AM 03/23/17 06:00 Intake Total 1850 ml Output Total 0 ml Balance 1850 ml Laboratory Data 24H LABS Laboratory Tests 2 03/22/17 16:36: Bedside Glucose (Misc Panel) 139H 03/22/17 20:08: Bedside Glucose (Misc Panel) 175H 03/23/17 06:18: White Blood Count 9.3, Red Blood Count 4.52, Hemoglobin 13.4L, Hematocrit 40.5L , Mean Corpuscular Volume 89.7, Mean Corpuscular Hemoglobin 29.6, Mean Corpuscular Hemoglobin Concent 33.0, Red Cell Distribution Width 13.5, Platelet Count 277, Neutrophils (%) (Auto) 83.5H, Lymphocytes (%) (Auto) 6.8L, Monocytes (%) (Auto) 6.2H, Eosinophils (%) (Auto) 1.7, Basophils (%) (Auto) 0.4, Neutrophils # (Auto) 7.7, Lymphocytes # (Auto) 0.8L, Monocytes # (Auto) 0.6, Eosinophils # (Auto) 0.2, Basophils # (Auto) 0.0, Large Unclassified Cells % 1.5 , Large Unclassified Cells # 0.1, Anion Gap 7L, Glomerular Filtration Rate 54.9 , Blood Urea Nitrogen 46H, Creatinine 1.34H, Sodium Level 134L, Potassium Level 4.5, Chloride Level 94L, Carbon Dioxide Level 33H, Calcium Level 9.3, Aspartate Amino Transf (AST/SGOT) 31, Alanine Aminotransferase (ALT/SGPT) 28, Alkaline Phosphatase 99, Total Bilirubin 1.1H, Total Protein 7.8, Albumin 3.3, Albumin/ Globulin Ratio 0.73L 03/23/17 11:25: Bedside Glucose (Misc Panel) 201H CBC/BMP Laboratory Tests 03/23/17 06:18 Red Blood Count 4.52, Mean Corpuscular Volume 89.7, Mean Corpuscular Hemoglobin 29.6, Mean Corpuscular Hemoglobin Concent 33.0, Red Cell Distribution Width 13.5 , Neutrophils (%) (Auto) 83.5 H, Lymphocytes (%) (Auto) 6.8 L, Monocytes (%) ( Auto) 6.2 H, Eosinophils (%) (Auto) 1.7, Basophils (%) (Auto) 0.4, Neutrophils # (Auto) 7.7, Lymphocytes # (Auto) 0.8 L, Monocytes # (Auto) 0.6, Eosinophils # (Auto) 0.2, Basophils # (Auto) 0.0, Calcium Level 9.3, Aspartate Amino Transf ( AST/SGOT) 31, Alanine Aminotransferase (ALT/SGPT) 28, Alkaline Phosphatase 99, Total Bilirubin 1.1 H, Total Protein 7.8, Albumin 3.3 Microbiology Microbiology 03/18/17 Gastrointestinal Tract Panel (PCR) - Final, Complete Chanda Wiggins Mar 23, 2017 11:53
[2017-03-23 14:00] VITALS: BP 147/70
[2017-03-23 20:00] VITALS: BP 127/60
[2017-03-23] MEDS: PRAVASTATIN 20 MG TAB PEG SCH (20:43)
[2017-03-24 06:00] VITALS: BP 131/63
[2017-03-24 07:15] LABS: BASO % 0.4 % (0.0-1.0); EOS # 0.1 K/mm3 (0.0-0.50); EOS % 1.1 % (0.0-3.0); LARGE UNSTAINED CELL # 0.1 K/mm3 (0.0-0.4); LARGE UNSTAINED CELL % 1.2 % (0.0-4.0); LYMPH # 0.7 K/mm3 (1.5-4.5); LYMPH % 5.6 % (24.0-44.0); MEAN CORPUSCULAR HEMOGLOBIN 30.4 pg (27.0-33.0); MEAN CORPUSCULAR HGB CONC 34.4 g/dl (32.0-36.5); MEAN CORPUSCULAR VOLUME 88.1 fl (80.0-96.0); MONO # 0.7 K/mm3 (0.0-0.8); MONO % 6.7 % (0.0-5.0); NEUTROPHILS # 8.5 K/mm3 (1.8-7.7); PLATELET COUNT, AUTOMATED 253 k/mm3 (150-450); RED CELL DISTRIBUTION WIDTH 13.5 % (11.5-14.5)
[2017-03-24 07:37] LABS: ALBUMIN 3.3 GM/DL (3.2-5.2); ALBUMIN/GLOBULIN RATIO 0.94 (1.00-1.93); ALKALINE PHOSPHATASE 97 U/L (45-117); ALT/SGPT 26 U/L (12-78); ANION GAP 9 MEQ/L (8-16); AST/SGOT 28 U/L (15-37); BILIRUBIN,TOTAL 1.2 MG/DL (0.2-1.0); BLOOD UREA NITROGEN 45 MG/DL (7-18); CALCIUM LEVEL 9.2 MG/DL (8.8-10.2); CARBON DIOXIDE LEVEL 31 MEQ/L (21-32); CHLORIDE LEVEL 94 MEQ/L (98-107); CREATININE FOR GFR 1.18 MG/DL (0.70-1.30); GLOMERULAR FILTRATION RATE > 60.0 (>42); GLUCOSE, FASTING 210 MG/DL (83-110); SODIUM LEVEL 134 MEQ/L (136-145); TOTAL PROTEIN 6.8 GM/DL (6.4-8.2)
[2017-03-24] MEDS: ALLOPURINOL 100 MG TAB PEG SCH (08:21)
[2017-03-24] MEDS: HumaLOG INSULIN (NovoLOG) PER UNIT SC SCH ×4 (08:21→20:52)
[2017-03-24] MEDS: ASPIRIN 325 MG TAB PEG SCH (08:21)
[2017-03-24] MEDS: METOPROLOL TARTRATE 100 MG TAB PEG SCH ×2 (08:21→20:51)
[2017-03-24] MEDS: VERAPAMIL 40 MG TAB PEG SCH ×3 (08:22→20:52)
[2017-03-24] MEDS: LOSARTAN 50 MG TAB PEG SCH (08:22)
[2017-03-24] MEDS: ENOXAPARIN 40 MG/0.4 ML SYRINGE (J1650) SC SCH (08:23)
[2017-03-24] MEDS: ACETAMINOPHEN 325 MG/10.15 ML UDC PEG PRN ×2 (09:38→16:54)
--- NOTE | 2017-03-24 09:42 | IPNPDOC ---
Application Operations Engineer Progress Note DATE OF SERVICE: 03/24/17 DATE OF ADMISSION: Mar 17, 2017 at 12:30 INPATIENT REHABILITATION ADMISSION DAY: #8 SUBJECTIVE: Patient is a 76-year-old white male with large left temporoparietal CVA with mild right hemiparesis but dense global aphasia, oral apraxia, dysarthria and dysphasia. Patient with rhabdomyolyses and skin lesion of hip. Patient with extensive cardiovascular disease including valvular disease of aortic, mitral and tricuspid valves with pulmonary hypertension, arrhythmia history including atrial fibrillation with implanted pacemaker and hyperlipidemia. Patient also with morbid obesity and secondary obstructive sleep apnea though he refuses to use CPAP. Patient status post PEG tube for feeding and medications and remains nothing by mouth. Patient with a little discomfort in the abdomen especially around the PEG site. Patient shakes his head with regards to other pains as some periodic abdominal pain, but regarding other problems as being no. ALLERGIES: See Below MEDICATIONS: Reviewed, see below. OBJECTIVE: VITAL SIGNS: Please see below. PHYSICAL EXAMINATION: GENERAL: Pleasant elderly white male who is below average height and morbidly obese sitting up in manual wheelchair in his room this morning in no acute distress. HEENT: Mild right facial droop is improving with more intelligible speech today , otherwise atraumatic/normocephalic. Patient with some tongue extension in midline, but not full extension. CARDIOVASCULAR: Regular rate and rhythm with normal S1 and S2 and grade 4/6 holosystolic murmur. 2/4 bilateral radial pulses. LUNGS: All baird clear to auscultation. ABDOMEN: Obese, less distended with mild tenderness around PEG site. PEG site without any inflammation or drainage. NEUROLOGICAL: Patient is alert and more automatic and spontaneous speech. He is showing his speech to be less dysarthric. He is better than random on his shaking head yes and no, but still making some errors. He does participate well with therapy and examination. Still unable to test appropriately the sensorimotor due to poor communications. SKIN: Hip sore is erythematous, irregular in shape and may reflect greater trochanter pressure when patient was down in the kitchen and not moving. LABORATORY DATA: Reviewed. Please see below. MICROBIOLOGY: Please see below. IMAGING: No new imaging. DVT prophylaxis ordered?: Lovenox and LEOBARDO hose. ASSESSMENT AND PLAN: 1. Rehabilitation of left temporoparietal CVA: Patient progressing with physical therapy, occupational therapy and speech-language pathology and making gains. Patient showing good motivation and participation with therapists so far. More automatic and spontaneous speech today with less dysarthric and fairly intelligible speech and less facial droop. Patient able to communicate need to go to bathroom with gestures and cued me and the EXTERNAL GRINDER TENDER as to what he needed to walk there (Walker and Gait Belt). 2. Acute kidney injury: Creatinine was elevated at 1.34 with BUN elevated at 46 , but today Creatinine 1.18 which is normal and BUN still elevated at 45. Furosemide reduced to 20 mg daily. Now on 175 ml of H2O QID. Na+ 134 slightly low with Cl- 94 also low. 3. Hypertension: Blood pressures fairly stable and we will continue to monitor. 4. Hypo-albuminemia: Cleared. Stable at 3.3 which is normal. 5. Left Adrenal Mass: CT without contrast suggests it is not clearly a benign mass, but could still be and periodic repeat scans to gauge any changes/growth should be used for followup. 6. Elevation of Total Bilirubin: 1.2 today which is up from 1.1. We will continue to track. TIME SPENT: Chart Review, examination and documentation require greater than 25 minutes. Allergies Coded Allergies: Penicillin V (Verified Allergy, Unknown, 03/17/17) Penicillins (Verified Allergy, Unknown, 03/17/17) Vital Signs Vital Signs Date Time Temp Pulse Resp B/P (MAP) Pulse Ox O2 Delivery O2 Flow Rate FiO2 03/24/17 08:22 131/63 03/24/17 08:21 60 03/24/17 08:15 Room Air 03/24/17 06:00 97.5 17 99 Laboratory Data CBC/BMP Laboratory Tests 03/24/17 06:55 Red Blood Count 4.25 L, Mean Corpuscular Volume 88.1, Mean Corpuscular Hemoglobin 30.4, Mean Corpuscular Hemoglobin Concent 34.4, Red Cell Distribution Width 13.5, Neutrophils (%) (Auto) 85.0 H, Lymphocytes (%) (Auto) 5.6 L, Monocytes (%) (Auto) 6.7 H, Eosinophils (%) (Auto) 1.1, Basophils (%) ( Auto) 0.4, Neutrophils # (Auto) 8.5 H, Lymphocytes # (Auto) 0.7 L, Monocytes # ( Auto) 0.7, Eosinophils # (Auto) 0.1, Basophils # (Auto) 0.0, Calcium Level 9.2, Aspartate Amino Transf (AST/SGOT) 28, Alanine Aminotransferase (ALT/SGPT) 26, Alkaline Phosphatase 97, Total Bilirubin 1.2 H, Total Protein 6.8, Albumin 3.3 Labs 24H Laboratory Tests 2 03/23/17 11:25: Bedside Glucose (Misc Panel) 201H 03/23/17 16:32: Bedside Glucose (Misc Panel) 149H 03/23/17 19:33: Bedside Glucose (Misc Panel) 206H 03/24/17 06:48: Bedside Glucose (Misc Panel) 173H 03/24/17 06:55: White Blood Count 10.0, Red Blood Count 4.25L, Hemoglobin 12.9L, Hematocrit 37.5L, Mean Corpuscular Volume 88.1, Mean Corpuscular Hemoglobin 30.4, Mean Corpuscular Hemoglobin Concent 34.4, Red Cell Distribution Width 13.5, Platelet Count 253, Neutrophils (%) (Auto) 85.0H, Lymphocytes (%) (Auto) 5.6L, Monocytes (%) (Auto) 6.7H, Eosinophils (%) (Auto) 1.1, Basophils (%) (Auto) 0.4, Neutrophils # (Auto) 8.5H, Lymphocytes # (Auto) 0.7L, Monocytes # (Auto) 0.7, Eosinophils # (Auto) 0.1, Basophils # (Auto) 0.0, Large Unclassified Cells % 1.2 , Large Unclassified Cells # 0.1, Anion Gap 9, Glomerular Filtration Rate > 60.0 , Blood Urea Nitrogen 45H, Creatinine 1.18, Sodium Level 134L, Potassium Level 5.0, Chloride Level 94L, Carbon Dioxide Level 31, Calcium Level 9.2, Aspartate Amino Transf (AST/SGOT) 28, Alanine Aminotransferase (ALT/SGPT) 26, Alkaline Phosphatase 97, Total Bilirubin 1.2H, Total Protein 6.8, Albumin 3.3, Albumin/ Globulin Ratio 0.94L Microbiology Microbiology 03/18/17 Gastrointestinal Tract Panel (PCR) - Final, Complete Current Medications Current Medications Current Medications Acetaminophen (Tylenol Suppository) 650 mg Q6HP PRN [place] PAIN OR FEVER Last administered on 03/19/17t 12:00; Start 03/17/17 at 10:30; Stop 03/21/17 at 14:46 ; Status DC Acetaminophen (Tylenol Suspension) 650 mg Q6HP PRN PEG PAIN OR FEVER Last administered on 03/22/17 13:52; Start 03/21/17 at 14:45; Stop 04/20/17 at 14:44 Allopurinol (Zyloprim) 100 mg DAILY PEG Last administered on 03/24/17 08:21; Start 03/17/17 at 09:00; Stop 04/16/17 at 08:59 Aspirin (Aspirin Chewable) 81 mg DAILY PEG ; Start 03/18/17 at 09:00; Stop 03/18 at 09:00; Status DC Aspirin (Aspirin) 325 mg DAILY PEG Last administered on 03/24/17 08:21; Start 03/18/17 at 09:00; Stop 04/17/17 at 08:59 Dextrose (Dextrose 50%) 25 ml ASDIRECTED PRN IV SEE LABEL COMMENTS; Start 03/17 at 10:30; Stop 04/16/17 at 10:29 Enoxaparin Sodium (Lovenox) 40 mg DAILY SC Last administered on 03/24/17 08:23 ; Start 03/18/17 at 09:00; Stop 03/26/17 at 08:59 Furosemide (Lasix) 20 mg DAILY PEG Last administered on 03/22/17 08:11; Start 03/22/17 at 09:00; Stop 03/23/17 at 10:07; Status DC Furosemide (Lasix) 40 mg DAILY PEG Last administered on 03/21/17 08:11; Start 03/17/17 at 09:00; Stop 03/21/17 at 09:12; Status DC Glucagon (Glucagon) 1 mg ASDIRECTED PRN SC SEE LABEL COMMENTS; Start 03/17/17 at 10:30; Stop 04/16/17 at 10:29 Glucose (Glucose) 16 GM ASDIRECTED PRN PO SEE LABEL COMMENTS; Start 03/17/17 at 10:30; Stop 04/16/17 at 10:29 Home Med (Med Rec Complete!) ASDIRECTED XX ; Start 03/17/17 at 13:30; Stop at 13:34; Status DC Insulin Human Lispro (HumaLOG INSULIN) See Protocol Table AC SC Last administered on 03/24/17 08:21; Start 03/17/17 at 12:00; Stop 04/16/17 at 11:59 Insulin Human Lispro (HumaLOG INSULIN) See Protocol Table QHS SC ; Start at 21:00; Stop 04/16/17 at 20:59 Losartan Potassium (Cozaar) 100 mg DAILY PEG Last administered on 03/24/17 08: 22; Start 03/18/17 at 09:00; Stop 04/17/17 at 08:59 Metoprolol Tartrate (Lopressor) 100 mg BID PEG Last administered on 03/24/17 08 :21; Start 03/17/17 at 09:00; Stop 04/16/17 at 08:59 Pravastatin Sodium (Pravachol) 80 mg QHS PEG Last administered on 03/23/17 20: 43; Start 03/17/17 at 21:00; Stop 04/16/17 at 20:59 Tramadol HCl (Ultram) 50 mg Q8HP PRN PEG PAIN SCALE 6-10; Start 03/21/17 at 15: 00; Stop 03/28/17 at 14:59 Verapamil HCl (Calan) 120 mg TID PEG Last administered on 03/24/17 08:22; Start 03/17/17 at 16:00; Stop 04/16/17 at 15:59 JOSE JACOBS MD Mar 24, 2017 09:42
--- NOTE | 2017-03-24 12:39 | IPNPDOC ---
Date Seen The patient was seen on 03/24/17. Progress Note HPI: 76year oldM who was found on the floor by his on 03/06/17. He was subsequently found to have acute CVA at [facility]. The Pt is transferred to the care of SKYLER FariasU 03/17/17. Pt denies pain, SOB, abdominal pain. Pt shakes head yes /no, denies pain, SOB, CP. 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 Peg tube 03/14/17. HTN Gout DM Dyslipidemia H/O AVB/Pacemaker CAD/IA CALE. Pt refuses CPAP. OA B/L Knees. Uses W/C at home. COPD M obesity. BMI 36.2 TTE 03/07/17. [facility]. EF60%, Mild LVH, Mod DD, Mild , Mild TR, Trace MR. CTA neck [facility] 03/07 10-15% carotid stenosis CTA Brain. [facility]. unremarkable. EEG. [facility]. No seizure activity noted. PSHX: peg tube 03/14/17 Pacemaker B/L knee arthroscopy. PE: GEN: 76yoM, appears stated age. Well-nourished, well developed. No acute distress. Alert, unable to verbalize answers to questions but does shake head yes and no to some questions. Sometimes with difficulty following commands. HEENT: Normocephalic, atraumatic. Pupils are equal, round, and reactive to light. Sclera are nonicteric. Conjunctiva without injection. Nose midline. Moist mucous membranes. Dentition fair. Pharynx pink and moist. Neck supple, trachea midline. No lymphadenopathy or thyromegaly appreciated. CHEST: Regular rate and rhythm, +S1, +S2. Systolic murmur noted. JVD not elevated sitting. LUNGS: Clear to auscultation bilaterally. No wheezes, rales, or rhonchi. Breathing appears symmetric and easy. No accessory muscle use. ABD: Round, soft, NoTTP, non-distended. +Bowel sounds throughout. No rebound or guarding. No costovertebral angle tenderness. peg tube intact. EXT: Pulses 2+ bilaterally dorsalis pedis and radial. trace lower extremity edema appreciated, chronic venous changes noted (LEs dependent in chair). SKIN: [place], dry, warm. Capillary refill <2sec. No rashes. NEURO: Alert. Aphasic. EKG 03/17/17 ELECTRONIC VENTRICULAR PACEMAKER Underlying rhythm appears to be aflutter Comparison tracing not on file CT A/P 03/18/17 There is cholelithiasis. Simple renal cysts. Enhancing left adrenal gland nodule. Noncontrast enhanced evaluation of this is recommended to ensure the entity represents a benign lesion. Colonic diverticulosis and colonic redundancy. PEG tube in place. CT 03/21/17 A 2 cm left adrenal nodule slightly hyperdense with attenuation value of 28 HU. This is not a definite benign adrenal adenoma that may still be adrenal adenoma with low fat content. Recommend periodic observation with CT scan only of the abdomen. In addition, if relevant with a smoking history, consider CT chest to look for potential source for possible metastatic lesion. I do not see any such source in the abdomen and pelvis. No other changes from 3 days ago. A&P: 76year oldM who was found on the floor by his on 03/06/17. He was subsequently found to have acute CVA at [facility]. The Pt is transferred to the care of Dr Suero, [facility] 03/17/17. No acute medical complaints today. 1. S/P CVA. left tempo parietal, with oral apraxia and global aphasia Mgmt as per Dr Suero. PT/OT/ST as per Dr Suero. Pain control as per Dr Suero Bowel care as per Dr Suero. DVT prophylaxis. Lovenox. Peg tube feedings. Pt NPO. Nutrition Clt. Pt seen by Neurology at [facility]. ASA 325mg daily. Out pt f/u. 2. HTN/HHD. Hold Lasix po related to increased SCR. This improved today, 1.18. Continue with Cozaar 100mg daily, Metoprolol 100mg BID, Verapamil 300mg daily. BP trend controlled. Monitor BMP. 3. Gout. Allopurinol. 4. IDDM. Tube feedings. NPO. SSI. 5. Dyslipidemia. Pravachol 80 mg daily. 6. H/O CHB/Pacemaker. EKG indicates underlying Afib/Flutter. Similar on previous tracing at [facility] as well. Have discussed with Cardiology regarding anticoagulation. Anticoagulation would be indicated, however Pt is considered high fall risk. Will discuss further with ARU attending and family. 7. CAD/H/O IA. Continue Metoprolol/ASA. 8. CALE. Pt refuses CPAP. Monitor. 9. M Obesity. Complicates care. BMI 36.2 10. OA B/L knees. Chronic unsteady gait related to his knees per Dtr, uses Wheelchair at home. 11. VHD. Mild /Mild TR/Trace MR. 12. H/O Rhabdomyolysis during admission. CK WNL. 13. Left Adrenal nodule. Plan to continue with outpt F/U, periodic CT scan abdomen. VS, I&O, 24H, Fishbone Vital Signs/I&O Vital Signs Date Time Temp Pulse Resp B/P (MAP) Pulse Ox O2 Delivery O2 Flow Rate FiO2 03/24/17 08:22 131/63 03/24/17 08:21 60 03/24/17 08:15 Room Air 03/24/17 06:00 97.5 17 99 I&O- Last 24 Hours up to 6 AM 03/24/17 06:00 Intake Total 1820 ml Balance 1820 ml Laboratory Data 24H LABS Laboratory Tests 2 03/23/17 16:32: Bedside Glucose (Misc Panel) 149H 03/23/17 19:33: Bedside Glucose (Misc Panel) 206H 03/24/17 06:48: Bedside Glucose (Misc Panel) 173H 03/24/17 06:55: White Blood Count 10.0, Red Blood Count 4.25L, Hemoglobin 12.9L, Hematocrit 37.5L, Mean Corpuscular Volume 88.1, Mean Corpuscular Hemoglobin 30.4, Mean Corpuscular Hemoglobin Concent 34.4, Red Cell Distribution Width 13.5, Platelet Count 253, Neutrophils (%) (Auto) 85.0H, Lymphocytes (%) (Auto) 5.6L, Monocytes (%) (Auto) 6.7H, Eosinophils (%) (Auto) 1.1, Basophils (%) (Auto) 0.4, Neutrophils # (Auto) 8.5H, Lymphocytes # (Auto) 0.7L, Monocytes # (Auto) 0.7, Eosinophils # (Auto) 0.1, Basophils # (Auto) 0.0, Large Unclassified Cells % 1.2 , Large Unclassified Cells # 0.1, Anion Gap 9, Glomerular Filtration Rate > 60.0 , Blood Urea Nitrogen 45H, Creatinine 1.18, Sodium Level 134L, Potassium Level 5.0, Chloride Level 94L, Carbon Dioxide Level 31, Calcium Level 9.2, Aspartate Amino Transf (AST/SGOT) 28, Alanine Aminotransferase (ALT/SGPT) 26, Alkaline Phosphatase 97, Total Bilirubin 1.2H, Total Protein 6.8, Albumin 3.3, Albumin/ Globulin Ratio 0.94L 03/24/17 11:29: Bedside Glucose (Misc Panel) 210H CBC/BMP Laboratory Tests 03/24/17 06:55 Red Blood Count 4.25 L, Mean Corpuscular Volume 88.1, Mean Corpuscular Hemoglobin 30.4, Mean Corpuscular Hemoglobin Concent 34.4, Red Cell Distribution Width 13.5, Neutrophils (%) (Auto) 85.0 H, Lymphocytes (%) (Auto) 5.6 L, Monocytes (%) (Auto) 6.7 H, Eosinophils (%) (Auto) 1.1, Basophils (%) ( Auto) 0.4, Neutrophils # (Auto) 8.5 H, Lymphocytes # (Auto) 0.7 L, Monocytes # ( Auto) 0.7, Eosinophils # (Auto) 0.1, Basophils # (Auto) 0.0, Calcium Level 9.2, Aspartate Amino Transf (AST/SGOT) 28, Alanine Aminotransferase (ALT/SGPT) 26, Alkaline Phosphatase 97, Total Bilirubin 1.2 H, Total Protein 6.8, Albumin 3.3 Microbiology Microbiology 03/18/17 Gastrointestinal Tract Panel (PCR) - Final, Complete Chanda Wiggins Mar 24, 2017 12:39
[2017-03-24 14:00] VITALS: BP 124/59
[2017-03-24] MEDS: ANALGESIC BALM CRM 120 GM TOP SCH ×3 (14:22→20:54)
[2017-03-24 20:00] VITALS: BP 133/64
[2017-03-24] MEDS: PRAVASTATIN 20 MG TAB PEG SCH (20:51)
[2017-03-25 06:00] VITALS: BP 142/69
[2017-03-25 07:36] LABS: BASO % 0.3 % (0.0-1.0); EOS # 0.1 K/mm3 (0.0-0.50); EOS % 0.9 % (0.0-3.0); LARGE UNSTAINED CELL # 0.1 K/mm3 (0.0-0.4); LARGE UNSTAINED CELL % 1.3 % (0.0-4.0); LYMPH # 0.4 K/mm3 (1.5-4.5); LYMPH % 4.8 % (24.0-44.0); MEAN CORPUSCULAR HEMOGLOBIN 29.5 pg (27.0-33.0); MEAN CORPUSCULAR HGB CONC 33.2 g/dl (32.0-36.5); MEAN CORPUSCULAR VOLUME 88.9 fl (80.0-96.0); MONO # 0.6 K/mm3 (0.0-0.8); MONO % 7.1 % (0.0-5.0); NEUTROPHILS # 7.4 K/mm3 (1.8-7.7); NEUTROPHILS % 85.6 % (36.0-66.0); PLATELET COUNT, AUTOMATED 270 k/mm3 (150-450); RED CELL DISTRIBUTION WIDTH 13.2 % (11.5-14.5); WHITE BLOOD COUNT 8.6 K/mm3 (4.0-10.0)
[2017-03-25 07:58] LABS: ALBUMIN/GLOBULIN RATIO 0.71 (1.00-1.93); ALKALINE PHOSPHATASE 88 U/L (45-117); ALT/SGPT 25 U/L (12-78); ANION GAP 7 MEQ/L (8-16); AST/SGOT 26 U/L (15-37); BLOOD UREA NITROGEN 44 MG/DL (7-18); CALCIUM LEVEL 9.2 MG/DL (8.8-10.2); CARBON DIOXIDE LEVEL 32 MEQ/L (21-32); CHLORIDE LEVEL 95 MEQ/L (98-107); CREATININE FOR GFR 1.15 MG/DL (0.70-1.30); GLOMERULAR FILTRATION RATE > 60.0 (>42); GLUCOSE, FASTING 224 MG/DL (83-110); SODIUM LEVEL 134 MEQ/L (136-145); TOTAL PROTEIN 7.2 GM/DL (6.4-8.2)
[2017-03-25] MEDS: HumaLOG INSULIN (NovoLOG) PER UNIT SC SCH ×4 (09:03→21:00)
[2017-03-25] MEDS: ENOXAPARIN 40 MG/0.4 ML SYRINGE (J1650) SC SCH (09:04)
[2017-03-25] MEDS: VERAPAMIL 40 MG TAB PEG SCH ×3 (09:04→21:43)
[2017-03-25] MEDS: METOPROLOL TARTRATE 100 MG TAB PEG SCH ×2 (09:04→21:43)
[2017-03-25] MEDS: ASPIRIN 325 MG TAB PEG SCH (09:04)
[2017-03-25] MEDS: ALLOPURINOL 100 MG TAB PEG SCH (09:05)
[2017-03-25] MEDS: ANALGESIC BALM CRM 120 GM TOP SCH ×4 (09:05→21:44)
[2017-03-25] MEDS: LOSARTAN 50 MG TAB PEG SCH (09:05)
--- NOTE | 2017-03-25 10:12 | IPNPDOC ---
Business Planning Director Progress Note DATE OF SERVICE: 03/25/17 DATE OF ADMISSION: Mar 17, 2017 at 12:30 INPATIENT REHABILITATION ADMISSION DAY: #9 SUBJECTIVE: Patient is a 76-year-old white male with large left temporoparietal CVA with mild right hemiparesis but dense global aphasia, oral apraxia, dysarthria and dysphasia. Patient with rhabdomyolyses and skin lesion of hip. Patient with extensive cardiovascular disease including valvular disease of aortic, mitral and tricuspid valves with pulmonary hypertension, arrhythmia history including atrial fibrillation with implanted pacemaker and hyperlipidemia. Patient also with morbid obesity and secondary obstructive sleep apnea though he refuses to use CPAP. Patient status post PEG tube for feeding and medications and remains nothing by mouth. Patient with a little discomfort in the abdomen especially around the PEG site. Patient shakes his head with regards to other pains as some periodic abdominal pain, but regarding other problems as being no. ALLERGIES: See Below MEDICATIONS: Reviewed, see below. OBJECTIVE: VITAL SIGNS: Please see below. PHYSICAL EXAMINATION: GENERAL: Pleasant elderly white male who is below average height and morbidly obese sitting up in manual wheelchair in his room this morning in no acute distress. HEENT: Mild right facial droop is improving with more intelligible speech today , otherwise atraumatic/normocephalic. Patient with some tongue extension in midline, but not full extension. CARDIOVASCULAR: Regular rate and rhythm with normal S1 and S2 and grade 4/6 holosystolic murmur. 2/4 bilateral radial pulses. LUNGS: All baird clear to auscultation. ABDOMEN: Obese with mild tenderness around PEG site. PEG site without any inflammation or drainage. Normal Bowel Sounds in all quadrants. NEUROLOGICAL: Patient is alert and more automatic and spontaneous speech. He is showing his speech to be less dysarthric. He is better than random on his shaking head yes and no, but still making some errors. He does participate well with therapy and examination. Still unable to test appropriately the sensorimotor due to poor communications. Patient trying to force out the words more today. SKIN: Hip sore is erythematous, irregular in shape and may reflect greater trochanter pressure when patient was down in the kitchen and not moving. LABORATORY DATA: Reviewed. Please see below. MICROBIOLOGY: Please see below. IMAGING: No new imaging. DVT prophylaxis ordered?: Lovenox and LEOBARDO white. ASSESSMENT AND PLAN: 1. Rehabilitation of left temporoparietal CVA: Patient progressing with physical therapy, occupational therapy and speech-language pathology and making gains. Patient showing good motivation and participation with therapists so far. More automatic and spontaneous speech today with less dysarthric and fairly intelligible speech and less facial droop. 2. Acute kidney injury: Creatinine was elevated at 1.15 with BUN elevated at 44. Furosemide reduced to 20 mg daily. Now on 175 ml of H2O QID. Na+ 134 slightly low with Cl- 95 also low. 3. Hypertension: Blood pressures fairly stable and we will continue to monitor. 4. Hypo-albuminemia: Cleared. Stable in 3.0 to 3.3 range. 5. Left Adrenal Mass: CT without contrast suggests it is not clearly a benign mass, but could still be and periodic repeat scans to gauge any changes/growth should be used for followup. 6. Elevation of Total Bilirubin: 1.0 today which is down from 1.2. We will continue to track. TIME SPENT: Chart Review, examination and documentation require greater than 25 minutes. Allergies Coded Allergies: Penicillin V (Verified Allergy, Unknown, 03/17/17) Penicillins (Verified Allergy, Unknown, 03/17/17) Vital Signs Vital Signs Date Time Temp Pulse Resp B/P (MAP) Pulse Ox O2 Delivery O2 Flow Rate FiO2 03/25/17 09:05 142/69 03/25/17 09:04 60 03/25/17 08:00 Room Air 03/25/17 06:00 97.6 18 99 Laboratory Data CBC/BMP Laboratory Tests 03/25/17 07:15 Red Blood Count 4.42, Mean Corpuscular Volume 88.9, Mean Corpuscular Hemoglobin 29.5, Mean Corpuscular Hemoglobin Concent 33.2, Red Cell Distribution Width 13.2 , Neutrophils (%) (Auto) 85.6 H, Lymphocytes (%) (Auto) 4.8 L, Monocytes (%) ( Auto) 7.1 H, Eosinophils (%) (Auto) 0.9, Basophils (%) (Auto) 0.3, Neutrophils # (Auto) 7.4, Lymphocytes # (Auto) 0.4 L, Monocytes # (Auto) 0.6, Eosinophils # (Auto) 0.1, Basophils # (Auto) 0.0, Calcium Level 9.2, Aspartate Amino Transf ( AST/SGOT) 26, Alanine Aminotransferase (ALT/SGPT) 25, Alkaline Phosphatase 88, Total Bilirubin 1.0, Total Protein 7.2, Albumin 3.0 L Labs 24H Laboratory Tests 2 03/24/17 11:29: Bedside Glucose (Misc Panel) 210H 03/24/17 16:24: Bedside Glucose (Misc Panel) 122H 03/24/17 19:53: Bedside Glucose (Misc Panel) 207H 03/25/17 07:15: White Blood Count 8.6, Red Blood Count 4.42, Hemoglobin 13.0L, Hematocrit 39.3L , Mean Corpuscular Volume 88.9, Mean Corpuscular Hemoglobin 29.5, Mean Corpuscular Hemoglobin Concent 33.2, Red Cell Distribution Width 13.2, Platelet Count 270, Neutrophils (%) (Auto) 85.6H, Lymphocytes (%) (Auto) 4.8L, Monocytes (%) (Auto) 7.1H, Eosinophils (%) (Auto) 0.9, Basophils (%) (Auto) 0.3, Neutrophils # (Auto) 7.4, Lymphocytes # (Auto) 0.4L, Monocytes # (Auto) 0.6, Eosinophils # (Auto) 0.1, Basophils # (Auto) 0.0, Large Unclassified Cells % 1.3 , Large Unclassified Cells # 0.1, Anion Gap 7L, Glomerular Filtration Rate > 60.0, Blood Urea Nitrogen 44H, Creatinine 1.15, Sodium Level 134L, Potassium Level 5.0, Chloride Level 95L, Carbon Dioxide Level 32, Calcium Level 9.2, Aspartate Amino Transf (AST/SGOT) 26, Alanine Aminotransferase (ALT/SGPT) 25, Alkaline Phosphatase 88, Total Bilirubin 1.0, Total Protein 7.2, Albumin 3.0L, Albumin/Globulin Ratio 0.71L Microbiology Microbiology 03/18/17 Gastrointestinal Tract Panel (PCR) - Final, Complete Current Medications Current Medications Current Medications Acetaminophen (Tylenol Suppository) 650 mg Q6HP PRN [place] PAIN OR FEVER Last administered on 03/19/17 12:00; Start 03/17/17 at 10:30; Stop 03/21/17 at 14:46 ; Status DC Acetaminophen (Tylenol Suspension) 650 mg Q6HP PRN PEG PAIN OR FEVER Last administered on 03/24/17 16:54; Start 03/21/17 at 14:45; Stop 04/20/17 at 14:44 Allopurinol (Zyloprim) 100 mg DAILY PEG Last administered on 03/25/17 09:05; Start 03/17/17 at 09:00; Stop 04/16/17 at 08:59 Aspirin (Aspirin Chewable) 81 mg DAILY PEG ; Start 03/18/17 at 09:00; Stop 03/18 at 09:00; Status DC Aspirin (Aspirin) 325 mg DAILY PEG Last administered on 03/25/17 09:04; Start 03/18/17 at 09:00; Stop 04/17/17 at 08:59 Dextrose (Dextrose 50%) 25 ml ASDIRECTED PRN IV SEE LABEL COMMENTS; Start 03/17 at 10:30; Stop 04/16/17 at 10:29 Enoxaparin Sodium (Lovenox) 40 mg DAILY SC Last administered on 03/25/17 09:04 ; Start 03/18/17 at 09:00; Stop 03/30/17 at 23:55 Furosemide (Lasix) 20 mg DAILY PEG Last administered on 03/22/17 08:11; Start 03/22/17 at 09:00; Stop 03/23/17 at 10:07; Status DC Furosemide (Lasix) 40 mg DAILY PEG Last administered on 03/21/17 08:11; Start 03/17/17 at 09:00; Stop 03/21/17 at 09:12; Status DC Glucagon (Glucagon) 1 mg ASDIRECTED PRN SC SEE LABEL COMMENTS; Start 03/17/17 at 10:30; Stop 04/16/17 at 10:29 Glucose (Glucose) 16 GM ASDIRECTED PRN PO SEE LABEL COMMENTS; Start 03/17/17 at 10:30; Stop 04/16/17 at 10:29 Home Med (Med Rec Complete!) ASDIRECTED XX ; Start 03/17/17 at 13:30; Stop at 13:34; Status DC Insulin Human Lispro (HumaLOG INSULIN) See Protocol Table AC SC Last administered on 03/25/17 09:03; Start 03/17/17 at 12:00; Stop 04/16/17 at 11:59 Insulin Human Lispro (HumaLOG INSULIN) See Protocol Table QHS SC ; Start at 21:00; Stop 04/16/17 at 20:59 Losartan Potassium (Cozaar) 100 mg DAILY PEG Last administered on 03/25/17 09: 05; Start 03/18/17 at 09:00; Stop 04/17/17 at 08:59 Menthol/Methyl Salicylate (Bengay Cream) Apply topically ... QID TOP Last administered on 03/25/17 09:05; Start 03/24/17 at 13:00; Stop 04/23/17 at 12:59 Metoprolol Tartrate (Lopressor) 100 mg BID PEG Last administered on 03/25/17 09 :04; Start 03/17/17 at 09:00; Stop 04/16/17 at 08:59 Pravastatin Sodium (Pravachol) 80 mg QHS PEG Last administered on 03/24/17 20: 51; Start 03/17/17 at 21:00; Stop 04/16/17 at 20:59 Tramadol HCl (Ultram) 50 mg Q8HP PRN PEG PAIN SCALE 6-10; Start 03/21/17 at 15: 00; Stop 03/28/17 at 14:59; Status Cancel Verapamil HCl (Calan) 120 mg TID PEG Last administered on 03/25/17 09:04; Start 03/17/17 at 16:00; Stop 04/16/17 at 15:59 JOSE JACOBS MD Mar 25, 2017 10:12
[2017-03-25 14:00] VITALS: BP 141/63
[2017-03-25 19:40] VITALS: BP 146/67
[2017-03-25] MEDS: PRAVASTATIN 20 MG TAB PEG SCH (21:44)
[2017-03-26 06:30] VITALS: BP 128/64
[2017-03-26 07:05] LABS: MEAN CORPUSCULAR HEMOGLOBIN 29.6 pg (27.0-33.0); MEAN CORPUSCULAR HGB CONC 33.2 g/dl (32.0-36.5); MEAN CORPUSCULAR VOLUME 89.2 fl (80.0-96.0); RED CELL DISTRIBUTION WIDTH 13.3 % (11.5-14.5); WHITE BLOOD COUNT 9.4 K/mm3 (4.0-10.0)
[2017-03-26 07:20] LABS: ALBUMIN 3.1 GM/DL (3.2-5.2); ALBUMIN/GLOBULIN RATIO 0.72 (1.00-1.93); ALKALINE PHOSPHATASE 100 U/L (45-117); ALT/SGPT 28 U/L (12-78); ANION GAP 9 MEQ/L (8-16); AST/SGOT 28 U/L (15-37); BILIRUBIN,TOTAL 0.9 MG/DL (0.2-1.0); BLOOD UREA NITROGEN 40 MG/DL (7-18); CALCIUM LEVEL 9.2 MG/DL (8.8-10.2); CARBON DIOXIDE LEVEL 32 MEQ/L (21-32); CHLORIDE LEVEL 93 MEQ/L (98-107); CREATININE FOR GFR 1.09 MG/DL (0.70-1.30); GLOMERULAR FILTRATION RATE > 60.0 (>42); GLUCOSE, FASTING 223 MG/DL (83-110); POTASSIUM SERUM 4.9 MEQ/L (3.5-5.1); SODIUM LEVEL 134 MEQ/L (136-145); TOTAL PROTEIN 7.4 GM/DL (6.4-8.2)
[2017-03-26] MEDS: ALLOPURINOL 100 MG TAB PEG SCH (08:53)
[2017-03-26] MEDS: ASPIRIN 325 MG TAB PEG SCH (08:53)
[2017-03-26] MEDS: HumaLOG INSULIN (NovoLOG) PER UNIT SC SCH ×4 (08:53→20:07)
[2017-03-26] MEDS: METOPROLOL TARTRATE 100 MG TAB PEG SCH ×2 (08:53→21:02)
[2017-03-26] MEDS: LOSARTAN 50 MG TAB PEG SCH (08:54)
[2017-03-26] MEDS: VERAPAMIL 40 MG TAB PEG SCH ×3 (08:54→21:01)
[2017-03-26] MEDS: ENOXAPARIN 40 MG/0.4 ML SYRINGE (J1650) SC SCH (08:54)
[2017-03-26] MEDS: ANALGESIC BALM CRM 120 GM TOP SCH ×4 (08:55→21:02)
[2017-03-26 14:00] VITALS: BP 145/67
[2017-03-26 20:15] VITALS: BP 135/63
[2017-03-26] MEDS: PRAVASTATIN 20 MG TAB PEG SCH (21:02)
[2017-03-27 06:00] VITALS: BP 146/64
[2017-03-27 07:06] LABS: ALBUMIN 2.9 GM/DL (3.2-5.2); ALBUMIN/GLOBULIN RATIO 0.71 (1.00-1.93); ALKALINE PHOSPHATASE 93 U/L (45-117); ALT/SGPT 30 U/L (12-78); ANION GAP 10 MEQ/L (8-16); AST/SGOT 27 U/L (15-37); BILIRUBIN,TOTAL 0.8 MG/DL (0.2-1.0); BLOOD UREA NITROGEN 40 MG/DL (7-18); CARBON DIOXIDE LEVEL 29 MEQ/L (21-32); CHLORIDE LEVEL 96 MEQ/L (98-107); CREATININE FOR GFR 1.04 MG/DL (0.70-1.30); GLOMERULAR FILTRATION RATE > 60.0 (>42); GLUCOSE, FASTING 210 MG/DL (83-110); POTASSIUM SERUM 4.7 MEQ/L (3.5-5.1); SODIUM LEVEL 135 MEQ/L (136-145)
[2017-03-27] MEDS: HumaLOG INSULIN (NovoLOG) PER UNIT SC SCH ×4 (08:09→20:35)
[2017-03-27] MEDS: METOPROLOL TARTRATE 100 MG TAB PEG SCH ×2 (08:09→20:34)
[2017-03-27] MEDS: ENOXAPARIN 40 MG/0.4 ML SYRINGE (J1650) SC SCH (08:09)
[2017-03-27] MEDS: ALLOPURINOL 100 MG TAB PEG SCH (08:09)
[2017-03-27] MEDS: ASPIRIN 325 MG TAB PEG SCH (08:09)
[2017-03-27] MEDS: LOSARTAN 50 MG TAB PEG SCH (08:10)
[2017-03-27] MEDS: VERAPAMIL 40 MG TAB PEG SCH ×3 (08:10→20:33)
[2017-03-27] MEDS: ANALGESIC BALM CRM 120 GM TOP SCH ×4 (08:11→20:34)
[2017-03-27 14:00] VITALS: BP 123/60
[2017-03-27 20:00] VITALS: BP 130/62
[2017-03-27] MEDS: PRAVASTATIN 20 MG TAB PEG SCH (20:33)
[2017-03-28 06:00] VITALS: BP 158/73
[2017-03-28 07:27] LABS: ALBUMIN 3.1 GM/DL (3.2-5.2); ALBUMIN/GLOBULIN RATIO 0.89 (1.00-1.93); ALKALINE PHOSPHATASE 100 U/L (45-117); ALT/SGPT 29 U/L (12-78); ANION GAP 9 MEQ/L (8-16); AST/SGOT 26 U/L (15-37); BILIRUBIN,TOTAL 0.8 MG/DL (0.2-1.0); BLOOD UREA NITROGEN 38 MG/DL (7-18); CALCIUM LEVEL 8.5 MG/DL (8.8-10.2); CARBON DIOXIDE LEVEL 31 MEQ/L (21-32); CHLORIDE LEVEL 96 MEQ/L (98-107); GLOMERULAR FILTRATION RATE > 60.0 (>42); GLUCOSE, FASTING 204 MG/DL (83-110); POTASSIUM SERUM 4.8 MEQ/L (3.5-5.1); SODIUM LEVEL 136 MEQ/L (136-145); TOTAL PROTEIN 6.6 GM/DL (6.4-8.2)
[2017-03-28] MEDS: HumaLOG INSULIN (NovoLOG) PER UNIT SC SCH ×4 (08:10→21:18)
[2017-03-28] MEDS: ENOXAPARIN 40 MG/0.4 ML SYRINGE (J1650) SC SCH (08:11)
[2017-03-28] MEDS: METOPROLOL TARTRATE 100 MG TAB PEG SCH ×2 (08:11→21:18)
[2017-03-28] MEDS: ASPIRIN 325 MG TAB PEG SCH (08:11)
[2017-03-28] MEDS: LOSARTAN 50 MG TAB PEG SCH (08:11)
[2017-03-28] MEDS: ALLOPURINOL 100 MG TAB PEG SCH (08:11)
[2017-03-28] MEDS: VERAPAMIL 40 MG TAB PEG SCH ×3 (08:11→21:18)
[2017-03-28] MEDS: ANALGESIC BALM CRM 120 GM TOP SCH ×4 (08:12→21:20)
--- NOTE | 2017-03-28 11:04 | IPNPDOC ---
Central Processing Technician Progress Note DATE OF SERVICE: 03/28/17 DATE OF ADMISSION: Mar 17, 2017 at 12:30 INPATIENT REHABILITATION ADMISSION DAY: #12 SUBJECTIVE: Patient is a 76-year-old white male with large left temporoparietal CVA with mild right hemiparesis but dense global aphasia, oral apraxia, dysarthria and dysphasia. Patient with rhabdomyolyses and skin lesion of hip. Patient with extensive cardiovascular disease including valvular disease of aortic, mitral and tricuspid valves with pulmonary hypertension, arrhythmia history including atrial fibrillation with implanted pacemaker and hyperlipidemia. Patient also with morbid obesity and secondary obstructive sleep apnea though he refuses to use CPAP. Patient status post PEG tube for feeding and medications and remains nothing by mouth. Patient with a little discomfort in the abdomen especially around the PEG site. Patient shakes his head with regards to other pains as some periodic abdominal pain, but regarding other problems as being no. ALLERGIES: See Below MEDICATIONS: Reviewed, see below. OBJECTIVE: VITAL SIGNS: Please see below. PHYSICAL EXAMINATION: GENERAL: Pleasant elderly white male who is below average height and morbidly obese sitting up in manual wheelchair in his room this morning in no acute distress. HEENT: Mild right facial droop is improving with more intelligible speech today , otherwise atraumatic/normocephalic. Patient with some tongue extension in midline, but not full extension. CARDIOVASCULAR: Regular rate and rhythm with normal S1 and S2 and grade 4/6 holosystolic murmur. 2/4 bilateral radial pulses. LUNGS: All baird clear to auscultation. ABDOMEN: Obese with mild tenderness around PEG site. PEG site without any inflammation or drainage. Normal Bowel Sounds in all quadrants. NEUROLOGICAL: Patient is alert and more automatic and spontaneous speech, but also partially purposeful speech this morning in PT at the gym. He is showing his speech to be progressively less dysarthric. He is better than random on his shaking head yes and no, but still making some errors. He does participate well with therapy and examination. Still unable to test appropriately the sensorimotor due to poor communications. Patient trying to force out the words more today. SKIN: Hip sore is erythematous, irregular in shape and may reflect greater trochanter pressure when patient was down in the kitchen and not moving. LABORATORY DATA: Reviewed. Please see below. MICROBIOLOGY: Please see below. IMAGING: No new imaging. DVT prophylaxis ordered?: Lovenox and LEOBARDO hose. ASSESSMENT AND PLAN: 1. Rehabilitation of left temporoparietal CVA: Patient progressing with physical therapy, occupational therapy and speech-language pathology and making gains. Patient showing good motivation and participation with therapists so far. More automatic and spontaneous speech today with less dysarthric and fairly intelligible speech and less facial droop. 2. Acute kidney injury: Creatinine was at 1.10 with BUN elevated at 38 down from 44. Furosemide was stopped. Now on 175 ml of H2O QID. Na+ 136 with Cl- 96 slightly low. 3. Hypertension: Blood pressures fairly stable except the 158/73 this morning, but otherwise usually 120's to 140's. We will continue to monitor. 4. Hypo-albuminemia: Cleared. Stable at 3.1 running in 3.0 to 3.3 range. 5. Left Adrenal Mass: CT without contrast suggests it is not clearly a benign mass, but could still be and periodic repeat scans to gauge any changes/growth should be used for followup. 6. Elevation of Total Bilirubin: 0.8 today which is down from 1.0 and previously 1.2. TIME SPENT: Chart Review, examination and documentation require greater than 35 minutes. Allergies Coded Allergies: Penicillin V (Verified Allergy, Unknown, 03/17/17) Penicillins (Verified Allergy, Unknown, 03/17/17) Vital Signs Vital Signs Date Time Temp Pulse Resp B/P (MAP) Pulse Ox O2 Delivery O2 Flow Rate FiO2 03/28/17 08:11 60 158/73 03/28/17 08:00 Room Air 03/28/17 06:00 98.3 18 98 Laboratory Data CBC/BMP Laboratory Tests 03/28/17 06:55 Calcium Level 8.5 L, Aspartate Amino Transf (AST/SGOT) 26, Alanine Aminotransferase (ALT/SGPT) 29, Alkaline Phosphatase 100, Total Bilirubin 0.8, Total Protein 6.6, Albumin 3.1 L Labs 24H Laboratory Tests 2 03/27/17 11:30: Bedside Glucose (Misc Panel) 198H 03/27/17 17:03: Bedside Glucose (Misc Panel) 132H 03/27/17 20:26: Bedside Glucose (Misc Panel) 190H 03/28/17 06:16: Bedside Glucose (Misc Panel) 222H 03/28/17 06:55: Anion Gap 9, Glomerular Filtration Rate > 60.0, Blood Urea Nitrogen 38H, Creatinine 1.10, Sodium Level 136, Potassium Level 4.8, Chloride Level 96L, Carbon Dioxide Level 31, Calcium Level 8.5L, Aspartate Amino Transf (AST/SGOT) 26, Alanine Aminotransferase (ALT/SGPT) 29, Alkaline Phosphatase 100, Total Bilirubin 0.8, Total Protein 6.6, Albumin 3.1L, Albumin/Globulin Ratio 0.89L Microbiology Microbiology 03/18/17 Gastrointestinal Tract Panel (PCR) - Final, Complete Current Medications Current Medications Current Medications Acetaminophen (Tylenol Suppository) 650 mg Q6HP PRN [place] PAIN OR FEVER Last administered on 03/19/17 12:00; Start 03/17/17 at 10:30; Stop 03/21/17 at 14:46 ; Status DC Acetaminophen (Tylenol Suspension) 650 mg Q6HP PRN PEG PAIN OR FEVER Last administered on 03/24/17 16:54; Start 03/21/17 at 14:45; Stop 04/20/17 at 14:44 Allopurinol (Zyloprim) 100 mg DAILY PEG Last administered on 03/28/17 08:11; Start 03/17/17 at 09:00; Stop 04/16/17 at 08:59 Aspirin (Aspirin Chewable) 81 mg DAILY PEG ; Start 03/18/17 at 09:00; Stop 03/18 at 09:00; Status DC Aspirin (Aspirin) 325 mg DAILY PEG Last administered on 03/28/17 08:11; Start 03/18/17 at 09:00; Stop 04/17/17 at 08:59 Dextrose (Dextrose 50%) 25 ml ASDIRECTED PRN IV SEE LABEL COMMENTS; Start 03/17 at 10:30; Stop 04/16/17 at 10:29 Enoxaparin Sodium (Lovenox) 40 mg DAILY SC Last administered on 03/28/17 08:11 ; Start 03/18/17 at 09:00; Stop 04/02/17 at 23:55 Furosemide (Lasix) 20 mg DAILY PEG Last administered on 03/22/17 08:11; Start 03/22/17 at 09:00; Stop 03/23/17 at 10:07; Status DC Furosemide (Lasix) 40 mg DAILY PEG Last administered on 03/21/17 08:11; Start 03/17/17 at 09:00; Stop 03/21/17 at 09:12; Status DC Glucagon (Glucagon) 1 mg ASDIRECTED PRN SC SEE LABEL COMMENTS; Start 03/17/17 at 10:30; Stop 04/16/17 at 10:29 Glucose (Glucose) 16 GM ASDIRECTED PRN PO SEE LABEL COMMENTS; Start 03/17/17 at 10:30; Stop 04/16/17 at 10:29 Home Med (Med Rec Complete!) ASDIRECTED XX ; Start 03/17/17 at 13:30; Stop at 13:34; Status DC Insulin Human Lispro (HumaLOG INSULIN) See Protocol Table AC SC Last administered on 03/28/17 08:10; Start 03/17/17 at 12:00; Stop 04/16/17 at 11:59 Insulin Human Lispro (HumaLOG INSULIN) See Protocol Table QHS SC ; Start at 21:00; Stop 04/16/17 at 20:59 Losartan Potassium (Cozaar) 100 mg DAILY PEG Last administered on 03/28/17 08: 11; Start 03/18/17 at 09:00; Stop 04/17/17 at 08:59 Menthol/Methyl Salicylate (Bengay Cream) Apply topically ... QID TOP Last administered on 03/28/17 08:12; Start 03/24/17 at 13:00; Stop 04/23/17 at 12:59 Metoprolol Tartrate (Lopressor) 100 mg BID PEG Last administered on 03/28/17 08 :11; Start 03/17/17 at 09:00; Stop 04/16/17 at 08:59 Pravastatin Sodium (Pravachol) 80 mg QHS PEG Last administered on 03/27/17 20: 33; Start 03/17/17 at 21:00; Stop 04/16/17 at 20:59 Tramadol HCl (Ultram) 50 mg Q8HP PRN PEG PAIN SCALE 6-10; Start 03/21/17 at 15: 00; Stop 03/28/17 at 14:59; Status Cancel Verapamil HCl (Calan) 120 mg TID PEG Last administered on 03/28/17 08:11; Start 03/17/17 at 16:00; Stop 8/26/17 at 15:59 JOSE JACOBS MD Mar 28, 2017 11:04
--- NOTE | 2017-03-28 11:14 | IPNPDOC ---
Date Seen The patient was seen on 03/28/17. Progress Note HPI: 76year oldM who was found on the floor by his on 03/06/17. He was subsequently found to have acute CVA at [facility]. The Pt is transferred to the care of SHABANA Farias 03/17/17. Pt denies pain, SOB, abdominal pain. Pt shakes head yes /no, denies pain, SOB, CP. 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 Peg tube 03/14/17. HTN Gout DM Dyslipidemia H/O AVB/Pacemaker CAD/[place] CALE. Pt refuses CPAP. OA B/L Knees. Uses W/C at home. COPD M obesity. BMI 36.2 TTE 03/07/17. [facility]. EF60%, Mild LVH, Mod DD, Mild , Mild TR, Trace MR. CTA neck [facility] 03/07 10-15% carotid stenosis CTA Brain. [facility]. unremarkable. EEG. [facility]. No seizure activity noted. PSHX: peg tube 03/14/17 Pacemaker B/L knee arthroscopy. PE: GEN: 76yoM, appears stated age. Well-nourished, well developed. No acute distress. Alert, unable to verbalize answers to questions but does shake head yes and no to some questions. Sometimes with difficulty following commands. HEENT: Normocephalic, atraumatic. Pupils are equal, round, and reactive to light. Sclera are nonicteric. Conjunctiva without injection. Nose midline. Moist mucous membranes. Dentition fair. Pharynx pink and moist. Neck supple, trachea midline. No lymphadenopathy or thyromegaly appreciated. CHEST: Regular rate and rhythm, +S1, +S2. Systolic murmur noted. JVD not elevated sitting. LUNGS: Clear to auscultation bilaterally. No wheezes, rales, or rhonchi. Breathing appears symmetric and easy. No accessory muscle use. ABD: Round, soft, NoTTP, non-distended. +Bowel sounds throughout. No rebound or guarding. No costovertebral angle tenderness. peg tube intact. EXT: Pulses 2+ bilaterally dorsalis pedis and radial. trace lower extremity edema appreciated, chronic venous changes noted (LEs dependent in chair). SKIN: Tarina, dry, warm. Capillary refill <2sec. No rashes. NEURO: Alert. Aphasic. EKG 03/17/17 ELECTRONIC VENTRICULAR PACEMAKER Underlying rhythm appears to be aflutter Comparison tracing not on file CT A/P 03/18/17 There is cholelithiasis. Simple renal cysts. Enhancing left adrenal gland nodule. Noncontrast enhanced evaluation of this is recommended to ensure the entity represents a benign lesion. Colonic diverticulosis and colonic redundancy. PEG tube in place. CT 03/21/17 A 2 cm left adrenal nodule slightly hyperdense with attenuation value of 28 HU. This is not a definite benign adrenal adenoma that may still be adrenal adenoma with low fat content. Recommend periodic observation with CT scan only of the abdomen. In addition, if relevant with a smoking history, consider CT chest to look for potential source for possible metastatic lesion. I do not see any such source in the abdomen and pelvis. No other changes from 3 days ago. A&P: 76year oldM who was found on the floor by his on 03/06/17. He was subsequently found to have acute CVA at [facility]. The Pt is transferred to the care of Dr Suero, [facility] 03/17/17. No acute medical complaints today. 1. S/P CVA. left tempo parietal, with oral apraxia and global aphasia Mgmt as per Dr Suero. PT/OT/ST as per Dr Suero. Pain control as per Dr Suero Bowel care as per Dr Suero. DVT prophylaxis. Lovenox. Peg tube feedings. Pt NPO. Nutrition Clt. Pt seen by Neurology at [facility]. ASA 325mg daily. Out pt f/u. 2. HTN/HHD. PO lasix on hold. Pt appears compensated. Wt decreased from admission. Continue with Cozaar 100mg daily, Metoprolol 100mg BID, Verapamil 300mg daily. BP trend 123-158 systolic. Monitor BMP. 3. Gout. Allopurinol. 4. IDDM. Tube feedings. NPO. SSI. 5. Dyslipidemia. Pravachol 80 mg daily. 6. H/O CHB/Pacemaker. EKG indicates underlying Afib/Flutter. Similar on previous tracing at [facility] as well. Have discussed with Cardiology regarding anticoagulation. Anticoagulation would be indicated, however Pt is considered high fall risk. Will discuss further with ARU attending and family. 7. CAD/H/O [place]. Continue Metoprolol/ASA. 8. CALE. Pt refuses CPAP. Monitor. 9. M Obesity. Complicates care. BMI 36.2 10. OA B/L knees. Chronic unsteady gait related to his knees per Dtr, uses Wheelchair at home. 11. VHD. Mild /Mild TR/Trace MR. 12. H/O Rhabdomyolysis during admission. CK WNL. 13. Left Adrenal nodule. Plan to continue with outpt F/U, periodic CT scan abdomen. VS, I&O, 24H, Fishbone Vital Signs/I&O Vital Signs Date Time Temp Pulse Resp B/P (MAP) Pulse Ox O2 Delivery O2 Flow Rate FiO2 03/28/17 08:11 60 158/73 03/28/17 08:00 Room Air 03/28/17 06:00 98.3 18 98 I&O- Last 24 Hours up to 6 AM 03/28/17 05:59 Intake Total 1750 ml Balance 1750 ml Laboratory Data 24H LABS Laboratory Tests 2 03/27/17 11:30: Bedside Glucose (Misc Panel) 198H 03/27/17 17:03: Bedside Glucose (Misc Panel) 132H 03/27/17 20:26: Bedside Glucose (Misc Panel) 190H 03/28/17 06:16: Bedside Glucose (Misc Panel) 222H 03/28/17 06:55: Anion Gap 9, Glomerular Filtration Rate > 60.0, Blood Urea Nitrogen 38H, Creatinine 1.10, Sodium Level 136, Potassium Level 4.8, Chloride Level 96L, Carbon Dioxide Level 31, Calcium Level 8.5L, Aspartate Amino Transf (AST/SGOT) 26, Alanine Aminotransferase (ALT/SGPT) 29, Alkaline Phosphatase 100, Total Bilirubin 0.8, Total Protein 6.6, Albumin 3.1L, Albumin/Globulin Ratio 0.89L CBC/BMP Laboratory Tests 03/28/17 06:55 Calcium Level 8.5 L, Aspartate Amino Transf (AST/SGOT) 26, Alanine Aminotransferase (ALT/SGPT) 29, Alkaline Phosphatase 100, Total Bilirubin 0.8, Total Protein 6.6, Albumin 3.1 L Microbiology Microbiology 7/28/17 Gastrointestinal Tract Panel (PCR) - Final, Complete Chanda Wiggins Mar 28, 2017 11:14
[2017-03-28 14:00] VITALS: BP 133/63
[2017-03-28 19:43] VITALS: BP 138/63
[2017-03-28] MEDS: PRAVASTATIN 20 MG TAB PEG SCH (21:18)
[2017-03-29 06:00] VITALS: BP 130/63
[2017-03-29 06:48] LABS: MEAN CORPUSCULAR HEMOGLOBIN 29.8 pg (27.0-33.0); MEAN CORPUSCULAR HGB CONC 33.8 g/dl (32.0-36.5); MEAN CORPUSCULAR VOLUME 88.1 fl (80.0-96.0); RED CELL DISTRIBUTION WIDTH 13.3 % (11.5-14.5)
[2017-03-29 07:03] LABS: ALBUMIN 2.9 GM/DL (3.2-5.2); ALBUMIN/GLOBULIN RATIO 0.69 (1.00-1.93); ALKALINE PHOSPHATASE 97 U/L (45-117); ALT/SGPT 29 U/L (12-78); ANION GAP 9 MEQ/L (8-16); AST/SGOT 28 U/L (15-37); BILIRUBIN,TOTAL 0.7 MG/DL (0.2-1.0); BLOOD UREA NITROGEN 35 MG/DL (7-18); CALCIUM LEVEL 8.9 MG/DL (8.8-10.2); CARBON DIOXIDE LEVEL 29 MEQ/L (21-32); CHLORIDE LEVEL 96 MEQ/L (98-107); CREATININE FOR GFR 1.12 MG/DL (0.70-1.30); GLOMERULAR FILTRATION RATE > 60.0 (>42); GLUCOSE, FASTING 197 MG/DL (83-110); POTASSIUM SERUM 4.9 MEQ/L (3.5-5.1); SODIUM LEVEL 134 MEQ/L (136-145); TOTAL PROTEIN 7.1 GM/DL (6.4-8.2)
[2017-03-29] MEDS: ENOXAPARIN 40 MG/0.4 ML SYRINGE (J1650) SC SCH (08:23)
[2017-03-29] MEDS: LOSARTAN 50 MG TAB PEG SCH (08:24)
[2017-03-29] MEDS: ASPIRIN 325 MG TAB PEG SCH (08:24)
[2017-03-29] MEDS: ALLOPURINOL 100 MG TAB PEG SCH (08:24)
[2017-03-29] MEDS: VERAPAMIL 40 MG TAB PEG SCH ×3 (08:24→21:01)
[2017-03-29] MEDS: ANALGESIC BALM CRM 120 GM TOP SCH ×4 (08:25→21:03)
[2017-03-29] MEDS: METOPROLOL TARTRATE 100 MG TAB PEG SCH ×2 (08:25→21:02)
[2017-03-29] MEDS: HumaLOG INSULIN (NovoLOG) PER UNIT SC SCH ×4 (08:26→21:00)
[2017-03-29] MEDS ORDERED: VARIBAR NECTAR 40% w/v 240ML SUSP BTL As Ordered ONE (10:10)
[2017-03-29] MEDS ORDERED: VARIBAR PUDDING 40% w/v 230ML TUBE As Ordered ONE (10:10)
[2017-03-29] MEDS ORDERED: E-Z-PAQUE 96% w/w SUSP 176GM BTL As Ordered ONE (10:10)
--- NOTE | 2017-03-29 11:44 | REP ---
COOKIE SWALLOW: Procedure was performed by MOON Nguyen, under the direct supervision of Dr. Stoddard. The procedure was attended by July Mix from Speech Pathology. During the procedure, the patient was able to ingest various consistencies of barium to evaluate the swallowing mechanism. There was penetration on thin barium. Full report from speech pathology to follow. Reviewed by MOON Evans 03/29/2017 12:28 PEdited and Signed by Harsh Stoddard MD 03/29/2017 08:10 P
--- NOTE | 2017-03-29 12:30 | IPNPDOC ---
Business Agent Progress Note DATE OF SERVICE: 03/29/17 DATE OF ADMISSION: Mar 17, 2017 at 12:30 INPATIENT REHABILITATION ADMISSION DAY: #13 SUBJECTIVE: Patient is a 76-year-old white male with large left temporoparietal CVA with mild right hemiparesis but dense global aphasia, oral apraxia, dysarthria and dysphasia. Patient with rhabdomyolyses and skin lesion of hip. Patient with extensive cardiovascular disease including valvular disease of aortic, mitral and tricuspid valves with pulmonary hypertension, arrhythmia history including atrial fibrillation with implanted pacemaker and hyperlipidemia. Patient also with morbid obesity and secondary obstructive sleep apnea though he refuses to use CPAP. Patient status post PEG tube for feeding and medications and remains nothing by mouth. Patient continues with a little discomfort in the abdomen especially around the PEG site. Patient with some spontaneous purposeful speech, but very limited. ALLERGIES: See Below MEDICATIONS: Reviewed, see below. OBJECTIVE: VITAL SIGNS: Please see below. PHYSICAL EXAMINATION: GENERAL: Pleasant elderly white male who is below average height and morbidly obese sitting up in manual wheelchair in his room this morning in no acute distress. HEENT: Mild right facial droop is improving with more intelligible speech today , otherwise atraumatic/normocephalic. Patient with some tongue extension in midline, but not full extension. CARDIOVASCULAR: Regular rate and rhythm with normal S1 and S2 and grade 4/6 holosystolic murmur. 2/4 bilateral radial pulses. LUNGS: All baird clear to auscultation. ABDOMEN: Obese with mild tenderness around PEG site. PEG site without any inflammation or drainage. Normal Bowel Sounds in all quadrants. NEUROLOGICAL: Patient is alert and more automatic and spontaneous speech, but also partially purposeful speech this morning in PT at the gym. He is showing his speech to be progressively less dysarthric. He is better than random on his shaking head yes and no, but still making some errors. He does participate well with therapy and examination. Still unable to test appropriately the sensorimotor due to poor communications. Patient trying to force out the words more today. SKIN: Hip sore is erythematous, irregular in shape and may reflect greater trochanter pressure when patient was down in the kitchen and not moving. LABORATORY DATA: Reviewed. Please see below. MICROBIOLOGY: Please see below. IMAGING: No new imaging. DVT prophylaxis ordered?: Lovenox and LEOBARDO white. ASSESSMENT AND PLAN: 1. Rehabilitation of left temporoparietal CVA: Patient progressing with physical therapy, occupational therapy and speech-language pathology and making gains. Patient showing good motivation and participation with therapists so far. More automatic and spontaneous speech today with less dysarthric and fairly intelligible speech and less facial droop. 2. Acute kidney injury: Creatinine was at 1.12 with BUN elevated at 35 down from 38. Furosemide was stopped. Now on 175 ml of H2O QID. Na+ 134 with Cl- 96 slightly low. 3. Hypertension: Blood pressures fairly stable usually 120's to 140's. We will continue to monitor. 4. Hypo-albuminemia: Dropped to 2.9 today. Hopefully, patient will do well with Mod. Barium Swallow study today and be able to increase nutrition with oral intake. 5. Left Adrenal Mass: CT without contrast suggests it is not clearly a benign mass, but could still be and periodic repeat scans to gauge any changes/growth should be used for followup. 6. Elevation of Total Bilirubin: 0.7 today which is down from 0.8 yesterday, 1.0 and previously 1.2. TIME SPENT: Chart Review, examination and documentation require greater than 25 minutes. Allergies Coded Allergies: Penicillin V (Verified Allergy, Unknown, 03/17/17) Penicillins (Verified Allergy, Unknown, 03/17/17) Vital Signs Vital Signs Date Time Temp Pulse Resp B/P (MAP) Pulse Ox O2 Delivery O2 Flow Rate FiO2 03/29/17 08:25 60 130/63 03/29/17 08:00 Room Air 03/29/17 06:00 97.9 18 99 Laboratory Data CBC/BMP Laboratory Tests 03/29/17 06:22 Red Blood Count 4.15 L, Mean Corpuscular Volume 88.1, Mean Corpuscular Hemoglobin 29.8, Mean Corpuscular Hemoglobin Concent 33.8, Red Cell Distribution Width 13.3, Calcium Level 8.9, Aspartate Amino Transf (AST/SGOT) 28 , Alanine Aminotransferase (ALT/SGPT) 29, Alkaline Phosphatase 97, Total Bilirubin 0.7, Total Protein 7.1, Albumin 2.9 L Labs 24H Laboratory Tests 2 03/28/17 11:37: Bedside Glucose (Misc Panel) 165H 03/28/17 16:35: Bedside Glucose (Misc Panel) 139H 03/28/17 20:17: Bedside Glucose (Misc Panel) 205H 03/29/17 06:22: Anion Gap 9, Glomerular Filtration Rate > 60.0, Blood Urea Nitrogen 35H, Creatinine 1.12, Sodium Level 134L, Potassium Level 4.9, Chloride Level 96L, Carbon Dioxide Level 29, Calcium Level 8.9, Aspartate Amino Transf (AST/SGOT) 28 , Alanine Aminotransferase (ALT/SGPT) 29, Alkaline Phosphatase 97, Total Bilirubin 0.7, Total Protein 7.1, Albumin 2.9L, Albumin/Globulin Ratio 0.69L Current Medications Current Medications Current Medications Acetaminophen (Tylenol Suppository) 650 mg Q6HP PRN ND PAIN OR FEVER Last administered on 03/19/17 12:00; Start 03/17/17 at 10:30; Stop 03/21/17 at 14:46 ; Status DC Acetaminophen (Tylenol Suspension) 650 mg Q6HP PRN PEG PAIN OR FEVER Last administered on 03/24/17 16:54; Start 03/21/17 at 14:45; Stop 04/20/17 at 14:44 Allopurinol (Zyloprim) 100 mg DAILY PEG Last administered on 03/29/17 08:24; Start 03/17/17 at 09:00; Stop 04/16/17 at 08:59 Aspirin (Aspirin Chewable) 81 mg DAILY PEG ; Start 03/18/17 at 09:00; Stop 03/18 at 09:00; Status DC Aspirin (Aspirin) 325 mg DAILY PEG Last administered on 03/29/17 08:24; Start 03/18/17 at 09:00; Stop 04/17/17 at 08:59 Dextrose (Dextrose 50%) 25 ml ASDIRECTED PRN IV SEE LABEL COMMENTS; Start 03/17 at 10:30; Stop 04/16/17 at 10:29 Enoxaparin Sodium (Lovenox) 40 mg DAILY SC Last administered on 03/29/17 08:23 ; Start 03/18/17 at 09:00; Stop 04/02/17 at 23:55 Furosemide (Lasix) 20 mg DAILY PEG Last administered on 03/22/17 08:11; Start 03/22/17 at 09:00; Stop 03/23/17 at 10:07; Status DC Furosemide (Lasix) 40 mg DAILY PEG Last administered on 03/21/17 08:11; Start 03/17/17 at 09:00; Stop 03/21/17 at 09:12; Status DC Glucagon (Glucagon) 1 mg ASDIRECTED PRN SC SEE LABEL COMMENTS; Start 03/17/17 at 10:30; Stop 04/16/17 at 10:29 Glucose (Glucose) 16 GM ASDIRECTED PRN PO SEE LABEL COMMENTS; Start 03/17/17 at 10:30; Stop 04/16/17 at 10:29 Home Med (Med Rec Complete!) ASDIRECTED XX ; Start 03/17/17 at 13:30; Stop at 13:34; Status DC Insulin Human Lispro (HumaLOG INSULIN) See Protocol Table AC SC Last administered on 03/29/17 08:26; Start 03/17/17 at 12:00; Stop 04/16/17 at 11:59 Insulin Human Lispro (HumaLOG INSULIN) See Protocol Table QHS SC ; Start at 21:00; Stop 04/16/17 at 20:59 Losartan Potassium (Cozaar) 100 mg DAILY PEG Last administered on 03/29/17 08: 24; Start 03/18/17 at 09:00; Stop 04/17/17 at 08:59 Menthol/Methyl Salicylate (Bengay Cream) Apply topically ... QID TOP Last administered on 03/29/17 08:25; Start 03/24/17 at 13:00; Stop 04/23/17 at 12:59 Metoprolol Tartrate (Lopressor) 100 mg BID PEG Last administered on 03/29/17 08 :25; Start 03/17/17 at 09:00; Stop 04/16/17 at 08:59 Pravastatin Sodium (Pravachol) 80 mg QHS PEG Last administered on 03/28/17 21: 18; Start 03/17/17 at 21:00; Stop 04/16/17 at 20:59 Tramadol HCl (Ultram) 50 mg Q8HP PRN PEG PAIN SCALE 6-10; Start 03/21/17 at 15: 00; Stop 03/28/17 at 14:59; Status Cancel Verapamil HCl (Calan) 120 mg TID PEG Last administered on 03/29/17 08:24; Start 7/27/17 at 16:00; Stop 04/16/17 at 15:59 JOSE JACOBS MD Mar 29, 2017 12:30
[2017-03-29 14:00] VITALS: BP 138/70
[2017-03-29 20:00] VITALS: BP 133/60
[2017-03-29] MEDS: PRAVASTATIN 20 MG TAB PEG SCH (21:02)
[2017-03-30 06:00] VITALS: BP 154/60
[2017-03-30 07:20] LABS: ALBUMIN 3.1 GM/DL (3.2-5.2); ALBUMIN/GLOBULIN RATIO 0.72 (1.00-1.93); ALKALINE PHOSPHATASE 102 U/L (45-117); ALT/SGPT 34 U/L (12-78); ANION GAP 8 MEQ/L (8-16); AST/SGOT 33 U/L (15-37); BILIRUBIN,TOTAL 0.8 MG/DL (0.2-1.0); BLOOD UREA NITROGEN 32 MG/DL (7-18); CALCIUM LEVEL 9.2 MG/DL (8.8-10.2); CARBON DIOXIDE LEVEL 29 MEQ/L (21-32); CHLORIDE LEVEL 97 MEQ/L (98-107); CREATININE FOR GFR 1.02 MG/DL (0.70-1.30); GLOMERULAR FILTRATION RATE > 60.0 (>42); GLUCOSE, FASTING 206 MG/DL (83-110); POTASSIUM SERUM 4.6 MEQ/L (3.5-5.1); SODIUM LEVEL 134 MEQ/L (136-145); TOTAL PROTEIN 7.4 GM/DL (6.4-8.2)
[2017-03-30] MEDS: VERAPAMIL 40 MG TAB PEG SCH ×3 (08:12→20:25)
[2017-03-30] MEDS: ASPIRIN 325 MG TAB PEG SCH (08:13)
[2017-03-30] MEDS: METOPROLOL TARTRATE 100 MG TAB PEG SCH ×2 (08:13→20:26)
[2017-03-30] MEDS: ALLOPURINOL 100 MG TAB PEG SCH (08:13)
[2017-03-30] MEDS: LOSARTAN 50 MG TAB PEG SCH (08:13)
[2017-03-30] MEDS: HumaLOG INSULIN (NovoLOG) PER UNIT SC SCH ×4 (08:18→20:26)
[2017-03-30] MEDS: ENOXAPARIN 40 MG/0.4 ML SYRINGE (J1650) SC SCH (08:18)
[2017-03-30] MEDS: ANALGESIC BALM CRM 120 GM TOP SCH ×4 (08:18→20:29)
--- NOTE | 2017-03-30 11:41 | IPNPDOC ---
Airplane Patroller Progress Note DATE OF SERVICE: 03/30/17 DATE OF ADMISSION: Mar 17, 2017 at 12:30 INPATIENT REHABILITATION ADMISSION DAY: #14 SUBJECTIVE: Patient is a 76-year-old white male with large left temporoparietal CVA with mild right hemiparesis but dense global aphasia, oral apraxia, dysarthria and dysphasia. Patient with rhabdomyolyses and skin lesion of hip. Patient with extensive cardiovascular disease including valvular disease of aortic, mitral and tricuspid valves with pulmonary hypertension, arrhythmia history including atrial fibrillation with implanted pacemaker and hyperlipidemia. Patient also with morbid obesity and secondary obstructive sleep apnea though he refuses to use CPAP. Patient status post PEG tube for feeding and medications and remains nothing by mouth. Patient continues with a little discomfort in the abdomen especially around the PEG site. Patient with some spontaneous purposeful speech, but very limited. Patient very happy about restarting oral feeds and fluids. ALLERGIES: See Below MEDICATIONS: Reviewed, see below. OBJECTIVE: VITAL SIGNS: Please see below. PHYSICAL EXAMINATION: GENERAL: Pleasant elderly white male who is below average height and morbidly obese sitting up in manual wheelchair in his room this morning in no acute distress. HEENT: Mild right facial droop is improving with more intelligible speech today , otherwise atraumatic/normocephalic. Patient with some tongue extension in midline, but not full extension. CARDIOVASCULAR: Regular rate and rhythm with normal S1 and S2 and grade 4/6 holosystolic murmur. 2/4 bilateral radial pulses. LUNGS: All baird clear to auscultation. ABDOMEN: Obese with mild tenderness around PEG site. PEG site without any inflammation or drainage. Normal Bowel Sounds in all quadrants. NEUROLOGICAL: Patient is alert and more automatic and spontaneous speech, but also partially purposeful speech this morning in PT at the gym. He is showing his speech to be progressively less dysarthric. He is better than random on his shaking head yes and no, but still making some errors. He does participate well with therapy and examination. Still unable to test appropriately the sensorimotor due to poor communications. Patient trying to force out the words more today. SKIN: Hip sore is erythematous, irregular in shape and may reflect greater trochanter pressure when patient was down in the kitchen and not moving. LABORATORY DATA: Reviewed. Please see below. MICROBIOLOGY: Please see below. IMAGING: No new imaging. DVT prophylaxis ordered?: Lovenox and LEOBARDO hose. ASSESSMENT AND PLAN: 1. Rehabilitation of left temporoparietal CVA: Patient progressing with physical therapy, occupational therapy and speech-language pathology and making gains. Patient showing good motivation and participation with therapists so far. More automatic and spontaneous speech today with less dysarthric and fairly intelligible speech and less facial droop. Plan discharge to daughter's home after family training 04/04. 2. Acute kidney injury: Creatinine was at 1.02 with BUN elevated at 32 trending down. Furosemide was stopped. Now on 175 ml of H2O QHS along with oral intake. Na+ 134 with Cl- 97 slightly low. 3. Hypertension: Blood pressures fairly stable usually 120's to 150's. We will continue to monitor. 4. Hypo-albuminemia: Dropped to 3.1 today. Patient did well with Mod. Barium Swallow study yesterday and is starting oral intake. 5. Left Adrenal Mass: CT without contrast suggests it is not clearly a benign mass, but could still be and periodic repeat scans to gauge any changes/growth should be used for followup. 6. Elevation of Total Bilirubin: 0.8 today. TIME SPENT: Chart Review, examination and documentation require greater than 25 minutes. Allergies Coded Allergies: Penicillin V (Verified Allergy, Unknown, 03/17/17) Penicillins (Verified Allergy, Unknown, 03/17/17) Vital Signs Vital Signs Date Time Temp Pulse Resp B/P (MAP) Pulse Ox O2 Delivery O2 Flow Rate FiO2 03/30/17 09:00 Room Air 03/30/17 08:12 60 154/60 03/30/17 06:00 97.8 18 98 Laboratory Data CBC/BMP Laboratory Tests 03/30/17 06:33 Calcium Level 9.2, Aspartate Amino Transf (AST/SGOT) 33, Alanine Aminotransferase (ALT/SGPT) 34, Alkaline Phosphatase 102, Total Bilirubin 0.8, Total Protein 7.4, Albumin 3.1 L Labs 24H Laboratory Tests 2 03/29/17 11:37: Bedside Glucose (Misc Panel) 224H 03/29/17 16:25: Bedside Glucose (Misc Panel) 170H 03/29/17 19:52: Bedside Glucose (Misc Panel) 225H 03/30/17 06:33: Anion Gap 8, Glomerular Filtration Rate > 60.0, Blood Urea Nitrogen 32H, Creatinine 1.02, Sodium Level 134L, Potassium Level 4.6, Chloride Level 97L, Carbon Dioxide Level 29, Calcium Level 9.2, Aspartate Amino Transf (AST/SGOT) 33 , Alanine Aminotransferase (ALT/SGPT) 34, Alkaline Phosphatase 102, Total Bilirubin 0.8, Total Protein 7.4, Albumin 3.1L, Albumin/Globulin Ratio 0.72L 03/30/17 11:21: Bedside Glucose (Misc Panel) 275H Current Medications Current Medications Current Medications Acetaminophen (Tylenol Suppository) 650 mg Q6HP PRN LA PAIN OR FEVER Last administered on 03/19/17 12:00; Start 03/17/17 at 10:30; Stop 03/21/17 at 14:46 ; Status DC Acetaminophen (Tylenol Suspension) 650 mg Q6HP PRN PEG PAIN OR FEVER Last administered on 03/24/17 16:54; Start 03/21/17 at 14:45; Stop 04/20/17 at 14:44 Allopurinol (Zyloprim) 100 mg DAILY PEG Last administered on 03/30/17 08:13; Start 03/17/17 at 09:00; Stop 04/16/17 at 08:59 Aspirin (Aspirin Chewable) 81 mg DAILY PEG ; Start 03/18/17 at 09:00; Stop 03/18 at 09:00; Status DC Aspirin (Aspirin) 325 mg DAILY PEG Last administered on 03/30/17 08:13; Start 03/18/17 at 09:00; Stop 04/17/17 at 08:59 Dextrose (Dextrose 50%) 25 ml ASDIRECTED PRN IV SEE LABEL COMMENTS; Start 03/17 at 10:30; Stop 04/16/17 at 10:29 Enoxaparin Sodium (Lovenox) 40 mg DAILY SC Last administered on 03/30/17 08:18 ; Start 03/18/17 at 09:00; Stop 04/02/17 at 23:55 Furosemide (Lasix) 20 mg DAILY PEG Last administered on 03/22/17 08:11; Start 03/22/17 at 09:00; Stop 03/23/17 at 10:07; Status DC Furosemide (Lasix) 40 mg DAILY PEG Last administered on 03/21/17 08:11; Start 03/17/17 at 09:00; Stop 03/21/17 at 09:12; Status DC Glucagon (Glucagon) 1 mg ASDIRECTED PRN SC SEE LABEL COMMENTS; Start 03/17/17 at 10:30; Stop 04/16/17 at 10:29 Glucose (Glucose) 16 GM ASDIRECTED PRN PO SEE LABEL COMMENTS; Start 03/17/17 at 10:30; Stop 04/16/17 at 10:29 Home Med (Med Rec Complete!) ASDIRECTED XX ; Start 03/17/17 at 13:30; Stop at 13:34; Status DC Insulin Human Lispro (HumaLOG INSULIN) See Protocol Table AC SC Last administered on 03/30/17 08:18; Start 03/17/17 at 12:00; Stop 04/16/17 at 11:59 Insulin Human Lispro (HumaLOG INSULIN) See Protocol Table QHS SC ; Start at 21:00; Stop 04/16/17 at 20:59 Losartan Potassium (Cozaar) 100 mg DAILY PEG Last administered on 03/30/17 08: 13; Start 03/18/17 at 09:00; Stop 04/17/17 at 08:59 Menthol/Methyl Salicylate (Bengay Cream) Apply topically ... QID TOP Last administered on 03/30/17 08:18; Start 03/24/17 at 13:00; Stop 04/23/17 at 12:59 Metoprolol Tartrate (Lopressor) 100 mg BID PEG Last administered on 03/30/17 08 :13; Start 03/17/17 at 09:00; Stop 04/16/17 at 08:59 Pravastatin Sodium (Pravachol) 80 mg QHS PEG Last administered on 03/29/17 21: 02; Start 03/17/17 at 21:00; Stop 04/16/17 at 20:59 Tramadol HCl (Ultram) 50 mg Q8HP PRN PEG PAIN SCALE 6-10; Start 03/21/17 at 15: 00; Stop 03/28/17 at 14:59; Status Cancel Verapamil HCl (Calan) 120 mg TID PEG Last administered on 03/30/17 08:12; Start 03/17/17 at 16:00; Stop 04/16/17 at 15:59 JOSE JACOBS MD Mar 30, 2017 11:41
[2017-03-30 14:00] VITALS: BP 120/62
[2017-03-30] MEDS: PRAVASTATIN 20 MG TAB PEG SCH (20:26)
[2017-03-30 20:30] VITALS: BP 138/76
[2017-03-31 06:00] VITALS: BP 149/69
[2017-03-31 08:30] LABS: ALBUMIN 3.2 GM/DL (3.2-5.2); ALBUMIN/GLOBULIN RATIO 0.82 (1.00-1.93); ALKALINE PHOSPHATASE 106 U/L (45-117); ALT/SGPT 35 U/L (12-78); ANION GAP 12 MEQ/L (8-16); AST/SGOT 34 U/L (15-37); BILIRUBIN,TOTAL 0.8 MG/DL (0.2-1.0); BLOOD UREA NITROGEN 32 MG/DL (7-18); CALCIUM LEVEL 8.1 MG/DL (8.8-10.2); CARBON DIOXIDE LEVEL 25 MEQ/L (21-32); CHLORIDE LEVEL 97 MEQ/L (98-107); CREATININE FOR GFR 1.13 MG/DL (0.70-1.30); GLOMERULAR FILTRATION RATE > 60.0 (>42); GLUCOSE, FASTING 199 MG/DL (83-110); POTASSIUM SERUM 4.8 MEQ/L (3.5-5.1); SODIUM LEVEL 134 MEQ/L (136-145); TOTAL PROTEIN 7.1 GM/DL (6.4-8.2)
[2017-03-31] MEDS: ALLOPURINOL 100 MG TAB PEG SCH (08:39)
[2017-03-31] MEDS: LOSARTAN 50 MG TAB PEG SCH (08:39)
[2017-03-31] MEDS: HumaLOG INSULIN (NovoLOG) PER UNIT SC SCH ×4 (08:39→21:00)
[2017-03-31] MEDS: ASPIRIN 325 MG TAB PEG SCH (08:40)
[2017-03-31] MEDS: METOPROLOL TARTRATE 100 MG TAB PEG SCH ×2 (08:40→21:55)
[2017-03-31] MEDS: ANALGESIC BALM CRM 120 GM TOP SCH ×4 (08:40→21:00)
[2017-03-31] MEDS: VERAPAMIL 40 MG TAB PEG SCH ×3 (08:40→21:56)
[2017-03-31] MEDS: ENOXAPARIN 40 MG/0.4 ML SYRINGE (J1650) SC SCH (08:40)
--- NOTE | 2017-03-31 12:08 | IPNPDOC ---
Date Seen The patient was seen on 03/31/17. Progress Note HPI: 76year oldM who was found on the floor by his on 03/06/17. He was subsequently found to have acute CVA at [facility]. The Pt is transferred to the care of SHABANA Farias 03/17/17. Pt denies pain, SOB, abdominal pain. Pt shakes head yes /no, verbalizes occassionaly denies pain, SOB, CP. 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 Peg tube 03/14/17. HTN Gout DM Dyslipidemia H/O AVB/Pacemaker CAD/FL CALE. Pt refuses CPAP. OA B/L Knees. Uses W/C at home. COPD M obesity. BMI 36.2 TTE 03/07/17. [facility]. EF60%, Mild LVH, Mod DD, Mild , Mild TR, Trace MR. CTA neck [facility] 03/07 10-15% carotid stenosis CTA Brain. [facility]. unremarkable. EEG. [facility]. No seizure activity noted. PSHX: peg tube 03/14/17 Pacemaker B/L knee arthroscopy. PE: GEN: 76yoM, appears stated age. Well-nourished, well developed. No acute distress. Alert, unable to verbalize answers to questions but does shake head yes and no to some questions. Sometimes with difficulty following commands. HEENT: Normocephalic, atraumatic. Pupils are equal, round, and reactive to light. Sclera are nonicteric. Conjunctiva without injection. Nose midline. Moist mucous membranes. Dentition fair. Pharynx pink and moist. Neck supple, trachea midline. No lymphadenopathy or thyromegaly appreciated. CHEST: Regular rate and rhythm, +S1, +S2. Systolic murmur noted. JVD not elevated sitting. LUNGS: Clear to auscultation bilaterally. No wheezes, rales, or rhonchi. Breathing appears symmetric and easy. No accessory muscle use. ABD: Round, soft, NoTTP, non-distended. +Bowel sounds throughout. No rebound or guarding. No costovertebral angle tenderness. peg tube intact. EXT: Pulses 2+ bilaterally dorsalis pedis and radial. trace lower extremity edema appreciated, chronic venous changes noted (LEs dependent in chair). SKIN: [place], dry, warm. Capillary refill <2sec. No rashes. NEURO: Alert. Aphasic. EKG 03/17/17 ELECTRONIC VENTRICULAR PACEMAKER Underlying rhythm appears to be aflutter Comparison tracing not on file CT A/P 03/18/17 There is cholelithiasis. Simple renal cysts. Enhancing left adrenal gland nodule. Noncontrast enhanced evaluation of this is recommended to ensure the entity represents a benign lesion. Colonic diverticulosis and colonic redundancy. PEG tube in place. CT 03/21/17 A 2 cm left adrenal nodule slightly hyperdense with attenuation value of 28 HU. This is not a definite benign adrenal adenoma that may still be adrenal adenoma with low fat content. Recommend periodic observation with CT scan only of the abdomen. In addition, if relevant with a smoking history, consider CT chest to look for potential source for possible metastatic lesion. I do not see any such source in the abdomen and pelvis. No other changes from 3 days ago. A&P: 76year oldM who was found on the floor by his on 03/06/17. He was subsequently found to have acute CVA at [facility]. The Pt is transferred to the care of SKYLER Farias 03/17/17. No acute medical complaints today. 1. S/P CVA. left tempo parietal, with oral apraxia and global aphasia Mgmt as per Dr Suero. PT/OT/ST as per Dr Suero. Pain control as per Dr Suero Bowel care as per Dr Suero. DVT prophylaxis. Lovenox. Peg tube feedings. Pt with pureed diet with ST. Nutrition Clt. Pt seen by Neurology at [facility]. ASA 325mg daily. Out pt f/u. 2. HTN/HHD. PO lasix on hold. Pt appears compensated. Wt decreased from admission. Continue with Cozaar 100mg daily, Metoprolol 100mg BID, Verapamil 300mg daily. BP trend 123-158 systolic. Monitor BMP. 3. Gout. Allopurinol. 4. IDDM. Tube feedings. NPO. SSI. 5. Dyslipidemia. Pravachol 80 mg daily. 6. H/O CHB/Pacemaker. EKG indicates underlying Afib/Flutter. Similar on previous tracing at [facility] as well. Have discussed with Cardiology regarding anticoagulation. Anticoagulation would be indicated, however Pt is considered high fall risk. Will discuss further with ARU attending and family. 7. CAD/H/O FL. Continue Metoprolol/ASA. 8. CALE. Pt refuses CPAP. Monitor. 9. M Obesity. Complicates care. BMI 36.2 10. OA B/L knees. Chronic unsteady gait related to his knees per Dtr, uses Wheelchair at home. 11. VHD. Mild /Mild TR/Trace MR. 12. H/O Rhabdomyolysis during admission. CK WNL. 13. Left Adrenal nodule. Plan to continue with outpt F/U, periodic CT scan abdomen. 14 Urinary hesitancy/frequency. Nursing has noticed hesitancy and frequency. Check UA/UC. UA neg 03/17/17. Trial of Flomax as d/w ARU attending. VS, I&O, 24H, Fishbone Vital Signs/I&O Vital Signs Date Time Temp Pulse Resp B/P (MAP) Pulse Ox O2 Delivery O2 Flow Rate FiO2 03/31/17 09:00 Room Air 03/31/17 08:39 149/69 03/31/17 06:00 97.5 60 20 99 I&O- Last 24 Hours up to 6 AM 03/31/17 06:00 Intake Total 1590 ml Output Total 0 ml Balance 1590 ml Laboratory Data 24H LABS Laboratory Tests 2 03/30/17 16:36: Bedside Glucose (Misc Panel) 104 03/30/17 20:08: Bedside Glucose (Misc Panel) 279H 03/31/17 07:49: Anion Gap 12, Glomerular Filtration Rate > 60.0, Blood Urea Nitrogen 32H, Creatinine 1.13, Sodium Level 134L, Potassium Level 4.8, Chloride Level 97L, Carbon Dioxide Level 25, Calcium Level 8.1L, Aspartate Amino Transf (AST/SGOT) 34, Alanine Aminotransferase (ALT/SGPT) 35, Alkaline Phosphatase 106, Total Bilirubin 0.8, Total Protein 7.1, Albumin 3.2, Albumin/Globulin Ratio 0.82L 03/31/17 11:29: Bedside Glucose (Misc Panel) 267H CBC/BMP Laboratory Tests 03/31/17 07:49 Calcium Level 8.1 L, Aspartate Amino Transf (AST/SGOT) 34, Alanine Aminotransferase (ALT/SGPT) 35, Alkaline Phosphatase 106, Total Bilirubin 0.8, Total Protein 7.1, Albumin 3.2 Chanda Wiggins Mar 31, 2017 12:08
--- NOTE | 2017-03-31 12:52 | IPNPDOC ---
Office Machine Repair Shop Supervisor Progress Note DATE OF SERVICE: 03/31/17 DATE OF ADMISSION: Mar 17, 2017 at 12:30 INPATIENT REHABILITATION ADMISSION DAY: #15 SUBJECTIVE: Patient is a 76-year-old white male with large left temporoparietal CVA with mild right hemiparesis but dense global aphasia, oral apraxia, dysarthria and dysphasia. Patient with rhabdomyolyses and skin lesion of hip. Patient with extensive cardiovascular disease including valvular disease of aortic, mitral and tricuspid valves with pulmonary hypertension, arrhythmia history including atrial fibrillation with implanted pacemaker and hyperlipidemia. Patient also with morbid obesity and secondary obstructive sleep apnea though he refuses to use CPAP. Patient status post PEG tube for feeding and medications and remains nothing by mouth. Patient continues with a little discomfort in the abdomen especially around the PEG site. Patient with some spontaneous purposeful speech, but very limited. Patient very happy about restarting oral feeds and fluids. ALLERGIES: See Below MEDICATIONS: Reviewed, see below. OBJECTIVE: VITAL SIGNS: Please see below. PHYSICAL EXAMINATION: GENERAL: Pleasant elderly white male who is below average height and morbidly obese sitting up in manual wheelchair in his room this morning in no acute distress. HEENT: Mild right facial droop is improving with more intelligible speech today , otherwise atraumatic/normocephalic. Patient with some tongue extension in midline, but not full extension. CARDIOVASCULAR: Regular rate and rhythm with normal S1 and S2 and grade 4/6 holosystolic murmur. 2/4 bilateral radial pulses. LUNGS: All baird clear to auscultation. ABDOMEN: Obese with mild tenderness around PEG site. PEG site without any inflammation or drainage. Normal Bowel Sounds in all quadrants. NEUROLOGICAL: Patient is alert and more automatic and spontaneous speech, but also partially purposeful speech this morning in PT at the gym. He is showing his speech to be progressively less dysarthric. He is better than random on his shaking head yes and no, but still making some errors. He does participate well with therapy and examination. Still unable to test appropriately the sensorimotor due to poor communications. Patient trying to force out the words more today. SKIN: Hip sore is erythematous, irregular in shape and may reflect greater trochanter pressure when patient was down in the kitchen and not moving. LABORATORY DATA: Reviewed. Please see below. MICROBIOLOGY: Please see below. IMAGING: No new imaging. DVT prophylaxis ordered?: Lovenox and LEOBARDO hose. ASSESSMENT AND PLAN: 1. Rehabilitation of left temporoparietal CVA: Patient progressing with physical therapy, occupational therapy and speech-language pathology and making gains. Patient showing good motivation and participation with therapists so far. More automatic and spontaneous speech today with less dysarthric and fairly intelligible speech and less facial droop. Plan discharge to daughter's home after family training 04/04. 2. Acute kidney injury: Creatinine was at 1.13 with BUN elevated at 32. Furosemide was stopped. Now on 175 ml of H2O QHS along with oral intake. Na+ 134 with Cl- 97 slightly low. 3. Hypertension: Blood pressures fairly stable usually 120's to 150's. We will continue to monitor. 4. Hypo-albuminemia: Dropped to 3.1 yesterday. Patient did well with Mod. Barium Swallow study yesterday and is starting oral intake. 5. Left Adrenal Mass: CT without contrast suggests it is not clearly a benign mass, but could still be and periodic repeat scans to gauge any changes/growth should be used for followup. TIME SPENT: Chart Review, examination and documentation require greater than 25 minutes. Allergies Coded Allergies: Penicillin V (Verified Allergy, Unknown, 03/17/17) Penicillins (Verified Allergy, Unknown, 03/17/17) Vital Signs Vital Signs Date Time Temp Pulse Resp B/P (MAP) Pulse Ox O2 Delivery O2 Flow Rate FiO2 03/31/17 09:00 Room Air 03/31/17 08:39 149/69 03/31/17 06:00 97.5 60 20 99 Laboratory Data CBC/BMP Laboratory Tests 03/31/17 07:49 Calcium Level 8.1 L, Aspartate Amino Transf (AST/SGOT) 34, Alanine Aminotransferase (ALT/SGPT) 35, Alkaline Phosphatase 106, Total Bilirubin 0.8, Total Protein 7.1, Albumin 3.2 Labs 24H Laboratory Tests 2 03/30/17 16:36: Bedside Glucose (Misc Panel) 104 03/30/17 20:08: Bedside Glucose (Misc Panel) 279H 03/31/17 07:49: Anion Gap 12, Glomerular Filtration Rate > 60.0, Blood Urea Nitrogen 32H, Creatinine 1.13, Sodium Level 134L, Potassium Level 4.8, Chloride Level 97L, Carbon Dioxide Level 25, Calcium Level 8.1L, Aspartate Amino Transf (AST/SGOT) 34, Alanine Aminotransferase (ALT/SGPT) 35, Alkaline Phosphatase 106, Total Bilirubin 0.8, Total Protein 7.1, Albumin 3.2, Albumin/Globulin Ratio 0.82L 03/31/17 11:29: Bedside Glucose (Misc Panel) 267H Current Medications Current Medications Current Medications Acetaminophen (Tylenol Suppository) 650 mg Q6HP PRN [place] PAIN OR FEVER Last administered on 03/19/17 12:00; Start 03/17/17 at 10:30; Stop 03/21/17 at 14:46 ; Status DC Acetaminophen (Tylenol Suspension) 650 mg Q6HP PRN PEG PAIN OR FEVER Last administered on 03/24/17 16:54; Start 03/21/17 at 14:45; Stop 04/20/17 at 14:44 Allopurinol (Zyloprim) 100 mg DAILY PEG Last administered on 03/31/17 08:39; Start 03/17/17 at 09:00; Stop 04/16/17 at 08:59 Aspirin (Aspirin Chewable) 81 mg DAILY PEG ; Start 03/18/17 at 09:00; Stop 03/18 at 09:00; Status DC Aspirin (Aspirin) 325 mg DAILY PEG Last administered on 03/31/17 08:40; Start 03/18/17 at 09:00; Stop 04/17/17 at 08:59 Dextrose (Dextrose 50%) 25 ml ASDIRECTED PRN IV SEE LABEL COMMENTS; Start 03/17 at 10:30; Stop 04/16/17 at 10:29 Enoxaparin Sodium (Lovenox) 40 mg DAILY SC Last administered on 03/31/17 08:40 ; Start 03/18/17 at 09:00; Stop 04/05/17 at 23:55 Furosemide (Lasix) 20 mg DAILY PEG Last administered on 03/22/17 08:11; Start 03/22/17 at 09:00; Stop 03/23/17 at 10:07; Status DC Furosemide (Lasix) 40 mg DAILY PEG Last administered on 03/21/17 08:11; Start 03/17/17 at 09:00; Stop 03/21/17 at 09:12; Status DC Glucagon (Glucagon) 1 mg ASDIRECTED PRN SC SEE LABEL COMMENTS; Start 03/17/17 at 10:30; Stop 04/16/17 at 10:29 Glucose (Glucose) 16 GM ASDIRECTED PRN PO SEE LABEL COMMENTS; Start 03/17/17 at 10:30; Stop 04/16/17 at 10:29 Home Med (Med Rec Complete!) ASDIRECTED XX ; Start 03/17/17 at 13:30; Stop at 13:34; Status DC Insulin Human Lispro (HumaLOG INSULIN) See Protocol Table AC SC Last administered on 03/31/17 12:40; Start 03/17/17 at 12:00; Stop 04/16/17 at 11:59 Insulin Human Lispro (HumaLOG INSULIN) See Protocol Table QHS SC Last administered on 03/30/17 20:26; Start 03/17/17 at 21:00; Stop 04/16/17 at 20:59 Losartan Potassium (Cozaar) 100 mg DAILY PEG Last administered on 03/31/17 08: 39; Start 03/18/17 at 09:00; Stop 04/17/17 at 08:59 Menthol/Methyl Salicylate (Bengay Cream) Apply topically ... QID TOP Last administered on 03/31/17 12:41; Start 03/24/17 at 13:00; Stop 04/23/17 at 12:59 Metoprolol Tartrate (Lopressor) 100 mg BID PEG Last administered on 03/31/17 08:40; Start 03/17/17 at 09:00; Stop 04/16/17 at 08:59 Pravastatin Sodium (Pravachol) 80 mg QHS PEG Last administered on 03/30/17 20: 26; Start 03/17/17 at 21:00; Stop 04/16/17 at 20:59 Tramadol HCl (Ultram) 50 mg Q8HP PRN PEG PAIN SCALE 6-10; Start 03/21/17 at 15: 00; Stop 03/28/17 at 14:59; Status Cancel Verapamil HCl (Calan) 120 mg TID PEG Last administered on 03/31/17 08:40; Start 03/17/17 at 16:00; Stop 04/16/17 at 15:59 JOSE JACOBS MD Mar 31, 2017 12:52
[2017-03-31 14:00] VITALS: BP 130/60
[2017-03-31] MEDS: TAMSULOSIN 0.4 MG CAP PO SCH (15:57)
[2017-03-31 20:00] VITALS: BP 124/58
[2017-03-31] MEDS: PRAVASTATIN 20 MG TAB PEG SCH (21:56)
[2017-04-01 06:00] VITALS: BP 143/70
[2017-04-01 07:36] LABS: ALBUMIN 3.2 GM/DL (3.2-5.2); ALBUMIN/GLOBULIN RATIO 0.84 (1.00-1.93); ALKALINE PHOSPHATASE 111 U/L (45-117); ALT/SGPT 35 U/L (12-78); ANION GAP 10 MEQ/L (8-16); AST/SGOT 32 U/L (15-37); BILIRUBIN,TOTAL 0.8 MG/DL (0.2-1.0); BLOOD UREA NITROGEN 27 MG/DL (7-18); CALCIUM LEVEL 8.1 MG/DL (8.8-10.2); CARBON DIOXIDE LEVEL 26 MEQ/L (21-32); CHLORIDE LEVEL 99 MEQ/L (98-107); CREATININE FOR GFR 1.12 MG/DL (0.70-1.30); GLOMERULAR FILTRATION RATE > 60.0 (>42); GLUCOSE, FASTING 194 MG/DL (83-110); SODIUM LEVEL 135 MEQ/L (136-145)
[2017-04-01] MEDS: HumaLOG INSULIN (NovoLOG) PER UNIT SC SCH ×4 (09:18→21:00)
[2017-04-01] MEDS: ALLOPURINOL 100 MG TAB PEG SCH (09:18)
[2017-04-01] MEDS: TAMSULOSIN 0.4 MG CAP PO SCH (09:18)
[2017-04-01] MEDS: VERAPAMIL 40 MG TAB PEG SCH ×3 (09:18→21:17)
[2017-04-01] MEDS: ASPIRIN 325 MG TAB PEG SCH (09:19)
[2017-04-01] MEDS: LOSARTAN 50 MG TAB PEG SCH (09:19)
[2017-04-01] MEDS: METOPROLOL TARTRATE 100 MG TAB PEG SCH ×2 (09:19→21:18)
[2017-04-01] MEDS: ENOXAPARIN 40 MG/0.4 ML SYRINGE (J1650) SC SCH (09:19)
[2017-04-01] MEDS: ANALGESIC BALM CRM 120 GM TOP SCH ×4 (09:19→21:18)
[2017-04-01 14:00] VITALS: BP 122/59
--- NOTE | 2017-04-01 14:50 | IPNPDOC ---
Digital Publishing Specialist Progress Note DATE OF SERVICE: 04/01/17 DATE OF ADMISSION: Mar 17, 2017 at 12:30 INPATIENT REHABILITATION ADMISSION DAY: #16 SUBJECTIVE: Patient is a 76-year-old white male with large left temporoparietal CVA with mild right hemiparesis but dense global aphasia, oral apraxia, dysarthria and dysphasia. Patient with rhabdomyolyses and skin lesion of hip. Patient with extensive cardiovascular disease including valvular disease of aortic, mitral and tricuspid valves with pulmonary hypertension, arrhythmia history including atrial fibrillation with implanted pacemaker and hyperlipidemia. Patient also with morbid obesity and secondary obstructive sleep apnea though he refuses to use CPAP. Patient status post PEG tube for feeding and medications and remains nothing by mouth. Patient continues with a little discomfort in the abdomen especially around the PEG site. Patient with some spontaneous purposeful speech, but very limited. Patient very happy about restarting oral feeds and fluids. ALLERGIES: See Below MEDICATIONS: Reviewed, see below. OBJECTIVE: VITAL SIGNS: Please see below. PHYSICAL EXAMINATION: GENERAL: Pleasant elderly white male who is below average height and morbidly obese sitting up in manual wheelchair in his room this morning in no acute distress. HEENT: Mild right facial droop is improving with more intelligible speech today , otherwise atraumatic/normocephalic. Patient with some tongue extension in midline, but not full extension. CARDIOVASCULAR: Regular rate and rhythm with normal S1 and S2 and grade 4/6 holosystolic murmur. 2/4 bilateral radial pulses. LUNGS: All baird clear to auscultation. ABDOMEN: Obese with mild tenderness around PEG site. PEG site without any inflammation or drainage. Normal Bowel Sounds in all quadrants. NEUROLOGICAL: Patient is alert and more automatic and spontaneous speech, but also partially purposeful speech this morning in PT at the gym. He is showing his speech to be progressively less dysarthric. He is better than random on his shaking head yes and no, but still making some errors. He does participate well with therapy and examination. Still unable to test appropriately the sensorimotor due to poor communications. Patient trying to force out the words more today. SKIN: Hip sore is erythematous, irregular in shape and may reflect greater trochanter pressure when patient was down in the kitchen and not moving. LABORATORY DATA: Reviewed. Please see below. MICROBIOLOGY: Please see below. IMAGING: No new imaging. DVT prophylaxis ordered?: Lovenox and LEOBARDO hose. ASSESSMENT AND PLAN: 1. Rehabilitation of left temporoparietal CVA: Patient progressing with physical therapy, occupational therapy and speech-language pathology and making gains. Patient showing good motivation and participation with therapists so far. More automatic and spontaneous speech today with less dysarthric and fairly intelligible speech and less facial droop. Plan discharge to daughter's home after family training 04/04. 2. Acute kidney injury: Creatinine was at 1.12 with BUN elevated at 27. Now on 175 ml of H2O QHS along with oral intake. Na+ 135 with Cl- 99. 3. Hypertension: Blood pressures fairly stable usually 120's to 150's. We will continue to monitor. 4. Hypo-albuminemia: At 3.2 today. Patient did well with Mod. Barium Swallow study and is doing well on oral intake. 5. Left Adrenal Mass: CT without contrast suggests it is not clearly a benign mass, but could still be and periodic repeat scans to gauge any changes/growth should be used for followup. TIME SPENT: Chart Review, examination and documentation require greater than 25 minutes. Allergies Coded Allergies: Penicillin V (Verified Allergy, Unknown, 03/17/17) Penicillins (Verified Allergy, Unknown, 03/17/17) Vital Signs Vital Signs Date Time Temp Pulse Resp B/P (MAP) Pulse Ox O2 Delivery O2 Flow Rate FiO2 04/01/17 09:18 60 143/70 04/01/17 09:00 Room Air 04/01/17 06:00 97.9 18 98 Laboratory Data CBC/BMP Laboratory Tests 04/01/17 06:48 Calcium Level 8.1 L, Aspartate Amino Transf (AST/SGOT) 32, Alanine Aminotransferase (ALT/SGPT) 35, Alkaline Phosphatase 111, Total Bilirubin 0.8, Total Protein 7.0, Albumin 3.2 Labs 24H Laboratory Tests 2 03/31/17 15:56: Urine Appearance CLEAR, Urine Color STRAW, Urine pH 7.0, Urine Specific [place] 1.003, Urine Protein NEGATIVE, Urine Glucose (UA) NEGATIVE, Urine Ketones NEGATIVE, Urine Urobilinogen 0.2, Urine Bilirubin NEGATIVE, Urine Leukocyte Esterase NEGATIVE, Urine Blood NEGATIVE, Urine Nitrite NEGATIVE, Urine WBC (Auto ) 0, Urine RBC (Auto) 0, Urine Hyaline Casts (Auto) 0, Urine Bacteria (Auto) NEGATIVE, Urine Squamous Epithelial Cells 0, Urine Sperm (Auto) 03/31/17 16:38: Bedside Glucose (Misc Panel) 103 03/31/17 20:44: Bedside Glucose (Misc Panel) 244H 04/01/17 06:48: Anion Gap 10, Glomerular Filtration Rate > 60.0, Blood Urea Nitrogen 27H, Creatinine 1.12, Sodium Level 135L, Potassium Level 5.0, Chloride Level 99, Carbon Dioxide Level 26, Calcium Level 8.1L, Aspartate Amino Transf (AST/SGOT) 32, Alanine Aminotransferase (ALT/SGPT) 35, Alkaline Phosphatase 111, Total Bilirubin 0.8, Total Protein 7.0, Albumin 3.2, Albumin/Globulin Ratio 0.84L Microbiology Microbiology 03/31/17 Urine Culture - Final, Complete Current Medications Current Medications Current Medications Acetaminophen (Tylenol Suppository) 650 mg Q6HP PRN [place] PAIN OR FEVER Last administered on 03/19/17 12:00; Start 03/17/17 at 10:30; Stop 03/21/17 at 14:46 ; Status DC Acetaminophen (Tylenol Suspension) 650 mg Q6HP PRN PEG PAIN OR FEVER Last administered on 03/24/17 16:54; Start 03/21/17 at 14:45; Stop 04/20/17 at 14:44 Allopurinol (Zyloprim) 100 mg DAILY PEG Last administered on 04/01/17 09:18; Start 03/17/17 at 09:00; Stop 04/16/17 at 08:59 Aspirin (Aspirin Chewable) 81 mg DAILY PEG ; Start 03/18/17 at 09:00; Stop 03/18 at 09:00; Status DC Aspirin (Aspirin) 325 mg DAILY PEG Last administered on 04/01/17 09:19; Start 03/18/17 at 09:00; Stop 04/17/17 at 08:59 Dextrose (Dextrose 50%) 25 ml ASDIRECTED PRN IV SEE LABEL COMMENTS; Start 03/17 at 10:30; Stop 04/16/17 at 10:29 Enoxaparin Sodium (Lovenox) 40 mg DAILY SC Last administered on 04/01/17 09:19 ; Start 03/18/17 at 09:00; Stop 04/05/17 at 23:55 Furosemide (Lasix) 20 mg DAILY PEG Last administered on 03/22/17 08:11; Start 03/22/17 at 09:00; Stop 03/23/17 at 10:07; Status DC Furosemide (Lasix) 40 mg DAILY PEG Last administered on 03/21/17 08:11; Start 03/17/17 at 09:00; Stop 03/21/17 at 09:12; Status DC Glucagon (Glucagon) 1 mg ASDIRECTED PRN SC SEE LABEL COMMENTS; Start 03/17/17 at 10:30; Stop 04/16/17 at 10:29 Glucose (Glucose) 16 GM ASDIRECTED PRN PO SEE LABEL COMMENTS; Start 03/17/17 at 10:30; Stop 04/16/17 at 10:29 Home Med (Med Rec Complete!) ASDIRECTED XX ; Start 03/17/17 at 13:30; Stop at 13:34; Status DC Insulin Human Lispro (HumaLOG INSULIN) See Protocol Table AC SC Last administered on 04/01/17 12:50; Start 03/17/17 at 12:00; Stop 04/16/17 at 11:59 Insulin Human Lispro (HumaLOG INSULIN) See Protocol Table QHS SC Last administered on 03/30/17 20:26; Start 03/17/17 at 21:00; Stop 04/16/17 at 20:59 Losartan Potassium (Cozaar) 100 mg DAILY PEG Last administered on 04/01/17 09: 19; Start 03/18/17 at 09:00; Stop 04/17/17 at 08:59 Menthol/Methyl Salicylate (Bengay Cream) Apply topically ... QID TOP Last administered on 03/31/17 12:41; Start 03/24/17 at 13:00; Stop 04/23/17 at 12:59 Metoprolol Tartrate (Lopressor) 100 mg BID PEG Last administered on 04/01/17 09:19; Start 03/17/17 at 09:00; Stop 04/16/17 at 08:59 Pravastatin Sodium (Pravachol) 80 mg QHS PEG Last administered on 03/31/17 21: 56; Start 03/17/17 at 21:00; Stop 04/16/17 at 20:59 Tamsulosin HCl (Flomax) 0.4 mg DAILY PO Last administered on 04/01/17 09:18; Start 03/31/17 at 09:00; Stop 04/30/17 at 08:59 Tramadol HCl (Ultram) 50 mg Q8HP PRN PEG PAIN SCALE 6-10; Start 03/21/17 at 15: 00; Stop 03/28/17 at 14:59; Status Cancel Verapamil HCl (Calan) 120 mg TID PEG Last administered on 04/01/17t 09:18; Start 03/17/17 at 16:00; Stop 04/16/17 at 15:59 JOSE JACOBS MD Apr 01, 2017 14:49
[2017-04-01 20:48] VITALS: BP 149/70
[2017-04-01] MEDS: PRAVASTATIN 20 MG TAB PEG SCH (21:17)
[2017-04-02 06:00] VITALS: BP 141/66
[2017-04-02] MEDS: ENOXAPARIN 40 MG/0.4 ML SYRINGE (J1650) SC SCH (08:50)
[2017-04-02] MEDS: ALLOPURINOL 100 MG TAB PEG SCH (08:50)
[2017-04-02] MEDS: VERAPAMIL 40 MG TAB PEG SCH ×3 (08:50→20:13)
[2017-04-02] MEDS: ASPIRIN 325 MG TAB PEG SCH (08:50)
[2017-04-02] MEDS: LOSARTAN 50 MG TAB PEG SCH (08:50)
[2017-04-02] MEDS: TAMSULOSIN 0.4 MG CAP PO SCH (08:50)
[2017-04-02] MEDS: HumaLOG INSULIN (NovoLOG) PER UNIT SC SCH ×4 (08:51→20:15)
[2017-04-02] MEDS: METOPROLOL TARTRATE 100 MG TAB PEG SCH ×2 (08:51→20:14)
[2017-04-02] MEDS: ANALGESIC BALM CRM 120 GM TOP SCH ×4 (08:52→20:16)
[2017-04-02 14:00] VITALS: BP 131/62
[2017-04-02 20:06] VITALS: BP 128/60
[2017-04-02] MEDS: PRAVASTATIN 20 MG TAB PEG SCH (20:14)
[2017-04-03 05:27] VITALS: BP 167/77
[2017-04-03] MEDS: ASPIRIN 325 MG TAB PEG SCH (08:32)
[2017-04-03] MEDS: VERAPAMIL 40 MG TAB PEG SCH ×3 (08:32→20:44)
[2017-04-03] MEDS: HumaLOG INSULIN (NovoLOG) PER UNIT SC SCH ×4 (08:32→20:45)
[2017-04-03] MEDS: LOSARTAN 50 MG TAB PEG SCH (08:33)
[2017-04-03] MEDS: ALLOPURINOL 100 MG TAB PEG SCH (08:33)
[2017-04-03] MEDS: METOPROLOL TARTRATE 100 MG TAB PEG SCH ×2 (08:33→20:44)
[2017-04-03] MEDS: ENOXAPARIN 40 MG/0.4 ML SYRINGE (J1650) SC SCH (08:33)
[2017-04-03] MEDS: TAMSULOSIN 0.4 MG CAP PO SCH (08:33)
[2017-04-03] MEDS: ANALGESIC BALM CRM 120 GM TOP SCH ×4 (08:34→20:46)
[2017-04-03 14:00] VITALS: BP 130/61
[2017-04-03 20:00] VITALS: BP 140/67
[2017-04-03] MEDS: PRAVASTATIN 20 MG TAB PEG SCH (20:45)
[2017-04-04 06:00] VITALS: BP 163/72
[2017-04-04] MEDS ORDERED: FLOM5CAP PO (07:54)
[2017-04-04] MEDS ORDERED: INSULANT SC (07:54)
[2017-04-04] MEDS ORDERED: LOVE1INJ SC (07:54)
[2017-04-04] MEDS: HumaLOG INSULIN (NovoLOG) PER UNIT SC SCH (08:55)
[2017-04-04 08:56] VITALS: BP 142/72
[2017-04-04] MEDS: ENOXAPARIN 40 MG/0.4 ML SYRINGE (J1650) SC SCH (08:56)
[2017-04-04] MEDS: TAMSULOSIN 0.4 MG CAP PO SCH (08:56)
[2017-04-04] MEDS: ASPIRIN 325 MG TAB PEG SCH (08:56)
[2017-04-04] MEDS: VERAPAMIL 40 MG TAB PEG SCH (08:56)
[2017-04-04] MEDS: ALLOPURINOL 100 MG TAB PEG SCH (08:57)
[2017-04-04] MEDS: LOSARTAN 50 MG TAB PEG SCH (08:57)
[2017-04-04] MEDS: METOPROLOL TARTRATE 100 MG TAB PEG SCH (08:57)
[2017-04-04] MEDS: ANALGESIC BALM CRM 120 GM TOP SCH (08:58)
[2017-04-04] MEDS ORDERED: LOPR1TAB7 PO (11:05)
[2017-04-04] MEDS ORDERED: LOSA50TA20 PO (11:05)
[2017-04-04] MEDS ORDERED: ALLO10TA PO (11:05)
[2017-04-04] MEDS ORDERED: VERA300C PO (11:05)
[2017-04-04] MEDS ORDERED: PRAV1TAB39 PEG (11:05)
--- NOTE | 2017-04-04 20:18 | PMRDS ---
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 HISTORY OF PRESENT ILLNESS: Patient is a 76-year-old white male who had been caring for his elderly who has dementia and on 03/05/2017, patient sustained an ischemic CVA and was unable to get up, he was down on the kitchen floor overnight. His , due to her organic brain syndrome, did not react to his being down on the floor until the next morning. He was taken to [facility] and from there evaluated and found to have sustained a large left CVA in the temporoparietal region on top of an old left parietal CVA, along with rhabdomyolysis. The patient medically stabilized and under evaluation was found to have oral apraxia and dysarthria and dysphagia and had a percutaneous endoscopic gastrostomy (PEG) tube placed on 03/15/2017. The patient was motivated to participate in therapy in spite of the severe communication loss with a dense both expressive and receptive language deficit, however he was highly motivated in reading what people were trying to ask him to do to participate in the therapy. He was offered admission to [facility] and was admitted here on 03/17/2017. His daughter, who is from [place], plans on taking him home along with his , who she took down at the start of the admission. The patient has been here participating in therapy and, while he would prefer to stay in [place], he is agreeing to the plan. His past medical history includes atherosclerotic cardiovascular disease with prior CVA and prior myocardial infarction, peripheral vascular disease, hypertension, arrhythmias including atrial fibrillation, and he does have a pacemaker in place, hyperlipidemia, aortic and tricuspid valve disease with some mitral and tricuspid regurgitation. The patient also sustained acute kidney injury related to the rhabdomyolysis, has gout, degenerative joint disease, morbid obesity, obstructive sleep apnea for which he refuses now and in the past to wear continuous positive airway pressure (CPAP) or bilevel positive airway pressure (BiPAP), and he also has hypoalbuminemia. PHYSICAL EXAMINATION: The patient is a short, obese, but muscular built elderly white male who looks about his stated age of 76, who is balding on top, and has soto hair along the sides and back of head. He uses glasses for visual correction. His pupils are now equal, round, reactive to light and accommodation, and pupils tend to be about 5 mm in diameter. Extraocular motions are now intact. Right facial droop has essentially cleared. Tongue is now able to jut out, upon admission patient not able to do a requested oral movement other than opening mouth. Patient now with occasional spontaneous purposeful speech, but usually more automatic speech in response to situations and questions or greetings, but patient is doing much better and is far better than guessing on his receptive language and following directions. He is able to use, to some degree, a communication board, but generally is able to express through pointing and gestures what he wishes. He is very accurate now on yes/no questions as opposed to being 50% when first arriving. Patient is transferring with contact guard to supervision in most transfers. He is ambulating with a front wheel walker with supervision and standby assistance for greater than 150 feet. He does require some assistance with toileting. But, in general his balance is now about good/minus up in the walker. His awareness of right space is fairly good at this time. Heart shows irregular rate and rhythm with normal S1, S2, with a 4/6 holosystolic murmur and 2/4 bilaterally radial pulses, and good perfusion in the upper and lower extremities. Lungs are clear in all baird to auscultation. Abdomen is obese with mild tenderness around the PEG site, but no inflammation or drainage from the PEG site, and normal bowel sounds in all quadrants. The patient has a healing sore from being down on his side on the right hip and this is much better at this time. PROCEDURES PERFORMED: Patient had a modified barium swallow and passed that and is now on a mechanical soft, consistent carbohydrate diet, with 2 grams sodium restriction for his cardiac disease and regular liquids. The patient is also status post abdominal CT scan due to initial gastrointestinal (GI) complaints and was found to have a left adrenal nodule which will require subsequent followup. The nodule is 2 cm in size. Radiology notes that it has a CT attenuation value of 28 HU which is not a definite benign adrenal adenoma but could still be and will require subsequent repeat scans. DIAGNOSTIC AND LABORATORY DATA: Patient admitted with a hemoglobin and hematocrit of 14.2 and 42.0. He had an elevated white count of 10.5. Most recent values on 03/29/2017, show white count normal at 8.0, hemoglobin and hematocrit of 12.3 and 36.6. Chemistry shows patient on admission with sodium low at 135, potassium 4.4, carbon dioxide low at 94, chloride low at 94, bicarbonate normal at 31, BUN elevated at 38, creatinine normal at 1.11, and fasting glucose of 199, with an albumin of 3.0, and normal liver function tests. Most recent values of 04/01/2017, show sodium mildly decreased at 135, potassium normal at 5.0, chloride normal at 99, carbon dioxide normal at 26, BUN 27 (still elevated), creatinine 1.12 (normal), and fasting glucose 194, albumin normal at 3.2, though calcium low at 8.1, with normal liver function tests. HOSPITAL COURSE: The patient was admitted on 03/17/2017, and started in evaluation with physical, occupational, speech, language and pathology, and followed closely by rehabilitation, nursing, podiatry, and medicine consult. He noted complaints of abdominal pain and CT scans were done showing no abnormality related to the PEG tube, but the adrenal gland was found to have the 2 cm nodule. The patient showed marked improvement over time and speech and communication showing progressive increase in receptive language and understanding and has shown some notable improvement in expressive language, however is still very limited in his overall speech pattern as noted above. His ambulation and balance has markedly improved, as has right and upper extremity motor control and strength. The patient, at this time, is felt to be able to transition onto home care physical, occupational, and speech therapy, though he may be able to perform, if transportation can be worked out, as an outpatient. DISCHARGE MEDICATIONS: - allopurinol 100 mg daily for gout - losartan 100 mg daily for blood pressure - metoprolol tartrate 100 mg twice a day for heart rate control and blood pressure - pravastatin 80 mg daily for cholesterol control - tamsulosin 0.4 mg daily for blood pressure control, but also to decrease urinary retention and dribbling - verapamil 300 mg daily for blood pressure - aspirin 81 mg daily for clot prevention - Lovenox 40 mg daily for DVT prophylaxis, patient given a 7 day course to allow for him to establish with a new provider in [place] - furosemide 40 mg daily for blood pressure control and fluid control - insulin glargine (Lantus) 15 units nightly - MiraLAX one packet of 17 grams daily for bowel program - insulin sliding scale with Aspart Patient is to establish with a new primary care within 1 week and will require home care. He will need further followup on his anemia and renal function. COMPLICATIONS: None. DISCHARGE PLAN AND INSTRUCTIONS: As noted above. TIME SPENT ON DISCHARGE: Greater than 35 minutes. MTDD
== END 2017-04-04 11:50 | disposition home health service (06) | DRG 57 ==
LOC: M PM&R 12:30
PROVIDERS: ADMIT Physical Medicine & Rehabilitation; ATTEND Physical Medicine & Rehabilitation
DX: I69.351 Hemiplegia and hemiparesis following cerebral infarction affecting right dominant side (principal); I69.320 Aphasia following cerebral infarction; I69.390 Apraxia following cerebral infarction; I69.391 Dysphagia following cerebral infarction; I69.322 Dysarthria following cerebral infarction; I25.10 Atherosclerotic heart disease of native coronary artery without angina pectoris; I48.91 Unspecified atrial fibrillation; I10 Essential (primary) hypertension; E11.9 Type 2 diabetes mellitus without complications; E78.5 Hyperlipidemia, unspecified; R35.0 Frequency of micturition; I73.9 Peripheral vascular disease, unspecified; E88.09 Other disorders of plasma-protein metabolism, not elsewhere classified; E27.8 Other specified disorders of adrenal gland; E66.01 Morbid (severe) obesity due to excess calories; I27.2 Other secondary pulmonary hypertension; G47.33 Obstructive sleep apnea (adult) (pediatric); M10.9 Gout, unspecified; I08.3 Combined rheumatic disorders of mitral, aortic and tricuspid valves; I25.2 Old myocardial infarction; M17.0 Bilateral primary osteoarthritis of knee; Z68.36 Body mass index [BMI] 36.0-36.9, adult; Z79.4 Long term (current) use of insulin; Z88.0 Allergy status to penicillin; Z79.899 Other long term (current) drug therapy; Z79.82 Long term (current) use of aspirin; Z82.49 Family history of ischemic heart disease and other diseases of the circulatory system; Z83.3 Family history of diabetes mellitus; Z81.1 Family history of alcohol abuse and dependence; Z95.0 Presence of cardiac pacemaker